=== PATIENT | male | born 1940 | race Caucasian/White ===

== ENCOUNTER 2016-09-06 11:15 | Emergency (ER) | payer OTHER ==
[~2016-09-06] VITALS: Ht 182.9 cm; Wt 78.2 kg
[~2016-09-06 11:15] MED LIST: RANI150T3 PO
[2016-09-06 11:23] VITALS: Ht 182.9 cm; Wt 78.2 kg
[2016-09-06 12:11] LABS: BASO % 0.9 %; BASO ABS # 0.05 K/uL (0-0.2); COMPLETE YES; EOS % 1.7 %; HEMATOCRIT 44.6 % (42-52); IG% 0.2 %; LYMPH % 26.5 %; LYMPH ABS # 1.52 K/uL (1.2-3.4); MEAN CELL VOLUME 91.2 fL (80-100); MEAN CORPUSCULAR HEMOGLOBIN 32.3 pg (25-34); MEAN CORPUSCULAR HGB CONC 35.4 g/dl (32-36); MEAN PLATELET VOLUME 10.3 fL (7.4-10.4); MONO % 10.1 %; NEUT % 60.6 %; PLATELET COUNT 157 K/uL (130-400); RED BLOOD COUNT 4.89 M/uL (4.7-6.1); WHITE BLOOD COUNT 5.73 K/uL (4.8-10.8)
[2016-09-06 12:21] LABS: PARTIAL THROMBOPLASTIN RATIO 1.1; PROTHROMBIN TIME (PATIENT) 10.9 SECONDS (9.0-12.0)
[2016-09-06 12:29] LABS: BUN/CREATININE RATIO 14.8 (10-20); CALCIUM 9.5 mg/dl (8.5-10.1); CREATININE 0.83 mg/dl (0.60-1.40); POTASSIUM 3.9 mmol/L (3.5-5.1)
[2016-09-06 12:42] LABS: MANUAL MICROSCOPIC REQUIRED? YES; REVIEW REQ? NO; SULFASALICYLIC ACID POS (NEG); URINE APPEARANCE CLOUDY (CLEAR); URINE COLOR RED
--- NOTE | 2016-09-06 12:44 | EMERGENCY ROOM VISIT NOTE ---
History First contact with patient: 11:47 Chief Complaint: HEMATURIA Stated Complaint: BLOOD/BLOOD CLOTS IN URINE Nursing Triage Summary: Triage note: pt reports "i am peeing straight blood since this morning." pt reports pain with urination. History of Present Illness The patient is a 76 year old male who presents to the Emergency Room with complaints of hematuria which started this morning. The patient states that he began noticing large amounts of blood and clots of blood in his urine this morning. He states that there is some burning in his lower abdomen after urination, but denies any dysuria, increased frequency or hesitancy. The patient denies any back pain. He reports a history of an enlarged prostate and kidney stones, but denies any other history of urinary problems. He states this does not feel like a kidney stone. He does not smoke. He denies any previous episodes of hematuria. Review of Systems A complete 10-point Review of Systems was discussed with the patient, with pertinent positives and negatives listed in the History of Present Illness. All remaining Review of Systems questions can be considered negative unless otherwise specified. Past Medical/Surgical History Medical Problems: (1) Enlarged prostate Surgical Problems: (1) History of appendectomy (2) Hx of inguinal hernia surgery Social History Smoking Status: Never Smoker Alcohol Use: none Drug Use: none Marital Status: Housing Status: lives with family Occupation Status: retired Current/Historical Medications Scheduled Ciprofloxacin Hcl (Cipro), 500 MG PO BID Allergies Coded Allergies: No Known Allergies (Unverified , 03/28/16) Physical Exam Vital Signs Date Time Temp Pulse Resp B/P Pulse Ox O2 Delivery O2 Flow Rate FiO2 09/06/16 11:23 36.8 74 18 125/80 94 Room Air Physical Exam VITALS: Vitals are noted on the nurse's note and reviewed by myself. Vital signs stable. GENERAL: This is a 76-year-old male, in no acute distress, nondiaphoretic, well- developed well-nourished. HEART: Regular rate and rhythm without murmurs gallops or rubs. LUNGS: Clear to auscultation bilaterally without wheezes, rales or rhonchi. ABDOMEN: Positive bowel sounds x 4. Soft, nontender to palpation. NEURO: Patient was alert and oriented to person place and time. Medical Decision & Procedures Laboratory Results 09/06/16 11:45 Red Blood Count 4.89, Mean Corpuscular Volume 91.2, Mean Corpuscular Hemoglobin 32.3, Mean Corpuscular Hemoglobin Concent 35.4, Mean Platelet Volume 10.3, Neutrophils (%) (Auto) 60.6, Lymphocytes (%) (Auto) 26.5, Monocytes (%) (Auto) 10.1, Eosinophils (%) (Auto) 1.7, Basophils (%) (Auto) 0.9, Neutrophils # (Auto ) 3.47, Lymphocytes # (Auto) 1.52, Monocytes # (Auto) 0.58, Eosinophils # (Auto ) 0.10, Basophils # (Auto) 0.05 09/06/16 11:45 Test 09/06/16 11:45 White Blood Count 5.73 K/uL (4.8-10.8) Red Blood Count 4.89 M/uL (4.7-6.1) Hemoglobin 15.8 g/dL (14.0-18.0) Hematocrit 44.6 % (42-52) Mean Corpuscular Volume 91.2 fL (80-100) Mean Corpuscular Hemoglobin 32.3 pg (25-34) Mean Corpuscular Hemoglobin Concent 35.4 g/dl (32-36) Platelet Count 157 K/uL (130-400) Mean Platelet Volume 10.3 fL (7.4-10.4) Neutrophils (%) (Auto) 60.6 % Lymphocytes (%) (Auto) 26.5 % Monocytes (%) (Auto) 10.1 % Eosinophils (%) (Auto) 1.7 % Basophils (%) (Auto) 0.9 % Neutrophils # (Auto) 3.47 K/uL (1.4-6.5) Lymphocytes # (Auto) 1.52 K/uL (1.2-3.4) Monocytes # (Auto) 0.58 K/uL (0.11-0.59) Eosinophils # (Auto) 0.10 K/uL (0-0.5) Basophils # (Auto) 0.05 K/uL (0-0.2) RDW Standard Deviation 45.7 fL (36.4-46.3) RDW Coefficient of Variation 13.7 % (11.5-14.5) Immature Granulocyte % (Auto) 0.2 % Immature Granulocyte # (Auto) 0.01 K/uL (0.00-0.02) Prothrombin Time 10.9 SECONDS (9.0-12.0) Prothromb Time International Ratio 1.0 (0.9-1.1) Activated Partial Thromboplast Time 28.2 SECONDS (21.0-31.0) Partial Thromboplastin Ratio 1.1 Urine Color RED Urine Appearance CLOUDY (CLEAR) Urine pH (4.5-7.5) Urine Specific Sherman (1.000-1.030) Urine Protein POS (NEG) Urine Glucose (UA) (NEG) Urine Ketones (NEG) Urine Occult Blood (NEG) Urine Nitrite (NEG) Urine Bilirubin (NEG) Urine Urobilinogen (NEG) Urine Leukocyte Esterase (NEG) Urine RBC >30 /hpf (0-4) Urine WBC >30 /hpf (0-5) Urine Epithelial Cells 0-5 /lpf (0-5) Urine Bacteria NEG (NEG) Anion Gap 8.0 mmol/L (3-11) Est Creatinine Clear Calc Drug Dose 80.5 ml/min Estimated GFR () 97.7 Estimated GFR (Non- 84.3 BUN/Creatinine Ratio 14.8 (10-20) Calcium Level 9.5 mg/dl (8.5-10.1) Medical Decision Differential diagnosis includes kidney stone, cystitis, malignancy, prostatitis , among others. The patient was evaluated as above. Labs were drawn and IV access was obtained. The patient is a 76-year-old male who presents today complaining of hematuria. The patient has no complaints of pain, but does state he has some burning in his abdomen after urinating and may be urinating more frequently than normal. Labs revealed no leukocytosis, anemia or concerning electrolyte abnormalities. Creatinine was elevated. Urinalysis showed greater than 30 red blood cells as well as greater than 30 white blood cells. No bacteria were noted. This may be early cystitis and the patient will be placed on antibiotics pending culture results. The patient does have a urologist and case management was able to call and make the patient a follow-up appointment with his established urologist. He was encouraged to return if he has any worsening of his condition or new/concerning symptoms. Based on the patient's presentation, lab results, and imaging studies, I feel the patient is stable for outpatient treatment. The patient was independently evaluated by Dr. Buckley, ED attending physician, who agreed with my assessment and treatment plan. Discharge instructions were reviewed with the patient. The patient verbalized understanding of my assessment and treatment plan and was discharged home in good condition. Impression Primary Impression: Hematuria Departure Information Dispostion Home / Self-Care Condition GOOD Prescriptions Ciprofloxacin Hcl (CIPRO) 500 Mg Tab 500 MG PO BID for 7 Days, #14 TAB Prov: Marifer Packer ., CINDY 09/06/16 Referrals Nano Sanchez M.D. (PCP) Patient Instructions My [facility] Additional Instructions You were prescribed ciprofloxacin to be taken twice daily as prescribed. This is an antibiotic. All antibiotics have the potential to cause diarrhea. Stop this medication and contact a medical provider if you were to develop any significant adverse side effects including: wheezing, shortness of breath, passing out, vomiting, or a diffuse rash. Always take antibiotics as directed and COMPLETE the ENTIRE course regardless of the improvement of your symptoms. Follow-up with [facility] urology. Drink plenty of fluids. Return to the emergency department with any fevers, worsening abdominal pain, back pain, lightheadedness, passing out or any other new/concerning symptoms.
[2016-09-06 12:58] LABS: URINE RBC >30 /hpf (0-4)
[2016-09-06 12:59] LABS: URINE BACTERIA NEG (NEG); URINE WBC >30 /hpf (0-5); ZZUR CULT IF INDIC CLEAN CATCH YES
--- NOTE | 2016-09-06 13:18 | EMERGENCY ROOM VISIT NOTE ---
ED Visit Note First contact with patient: 11:47 This Patient was discussed with the physician food service assistant, Marifer Packer PA-C. The pertinent historical and physical exam findings were confirmed. I agree with the studies ordered and with the interpretations of these studies. I agree with the disposition and care plan.
[2016-09-06] MEDS ORDERED: CIPR-255 PO (13:41)
[2016-09-06 15:00] VITALS: BP 125/80; PULSE 74; TEMP 36.8; O2SAT 94
== END 2016-09-06 15:01 | disposition home or self-care (01) ==
LOC: C.EDB 11:16 → C.EDC 15:01
DX: R31.9 Hematuria, unspecified (principal); N40.0 Benign prostatic hyperplasia without lower urinary tract symptoms

== ENCOUNTER → 2016-09-10 | Outpatient (CLI) | payer OTHER ==
[~2016-09-10] MED LIST changes: +CIPR-255 PO; -RANI150T3 PO
== END | disposition home or self-care (01) ==
LOC: C.PATHSPEC 10:51
PROVIDERS: ATTEND Urology
DX: R31.0 Gross hematuria (principal)

== ENCOUNTER → 2016-09-12 | Outpatient (CLI) | payer OTHER ==
[~2016-09-12] MED LIST changes: +OPTIRAY 320 IV PRN
--- NOTE | 2016-09-12 08:21 | DIAGNOSTIC IMAGING REPORT ---
ABDOMEN AND PELVIS CT WITH AND WITHOUT IV CONTRAST, UROGRAM PROTOCOL CT DOSE: 824.20 mGy.cm HISTORY: Gross hematuria TECHNIQUE: Multiaxial CT images of the abdomen and pelvis were performed both before and after the use of intravenous contrast to evaluate the urinary system. Maximal intensity projection images were performed at the workstation by the radiologist. COMPARISON STUDY: Abdomen and pelvis CT 03/23/2016. FINDINGS: There is a punctate stone within the right kidney. No left renal calculi. No ureteral or bladder calculi. No hydronephrosis. No suspicious filling defects seen within the bilateral renal collecting systems, ureters, or bladder. The distal right ureter is not opacified. The prostate gland is enlarged. A 1 cm anterior bladder diverticulum. Stable 1.3 cm tubular branching structure within the left lower lobe. 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 Mild elevation of the right hemidiaphragm, unchanged. 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 No change in the tubular metallic density adjacent to the left posterior iliac bone. The liver, gallbladder, spleen, adrenal glands, and pancreas are unremarkable. Small fat-containing left inguinal hernia. No retroperitoneal lymphadenopathy. Colonic diverticulosis. No bowel wall thickening or obstruction. IMPRESSION: 1. Right-sided nephrolithiasis. No ureteral stones. No hydronephrosis. 2. No suspicious filling defects seen within the opacified bilateral renal collecting systems, ureters, or bladder. 3. No change in the 1.3 cm tubular branching structure within the left lower lobe. 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 Follow-up pulmonary consultation is recommended. 4. Additional findings as described above. Electronically signed by: Jerrod Cortez M.D. 09/12/2016 8:20 AM Dictated Date/Time: 09/12/2016 8:08 AM
== END | disposition home or self-care (01) ==
LOC: C.CTS 07:25
PROVIDERS: ATTEND Urology
DX: N20.0 Calculus of kidney (principal); R91.8 Other nonspecific abnormal finding of lung field

== ENCOUNTER → 2017-07-18 | Outpatient (CLI) | payer OTHER ==
[~2017-07-18] MED LIST changes: -OPTIRAY 320 IV PRN
[2017-07-18 12:40] LABS: INR 2.2 (0.9-1.1)
== END | disposition home or self-care (01) ==
LOC: C.LABSPEC 14:44
PROVIDERS: ATTEND Student in an Organized Health Care Education/Training Program
DX: Z01.89 Encounter for other specified special examinations (principal)

== ENCOUNTER → 2017-07-25 | Outpatient (CLI) | payer OTHER ==
[2017-07-25 12:05] LABS: BASO % 0.5 %; BASO ABS # 0.03 K/uL (0-0.2); EOS % 1.7 %; EOS ABS # 0.11 K/uL (0-0.5); HEMATOCRIT 40.9 % (42-52); HEMOGLOBIN 13.5 g/dL (14.0-18.0); IG# 0.01 K/uL (0.00-0.02); LYMPH % 27.5 %; LYMPH ABS # 1.83 K/uL (1.2-3.4); MEAN CELL VOLUME 90.3 fL (80-100); MEAN CORPUSCULAR HEMOGLOBIN 29.8 pg (25-34); MEAN PLATELET VOLUME 9.3 fL (7.4-10.4); MONO % 7.2 %; MONO ABS # 0.48 K/uL (0.11-0.59); NEUT % 62.9 %; PLATELET COUNT 298 K/uL (130-400); RED CELL DISTRIBUTION WIDTH CV 15.1 % (11.5-14.5); RED CELL DISTRIBUTION WIDTH SD 49.5 fL (36.4-46.3); WHITE BLOOD COUNT 6.66 K/uL (4.8-10.8)
[2017-07-25 12:26] LABS: BLOOD UREA NITROGEN 8 mg/dl (7-18); CALCIUM 9.1 mg/dl (8.5-10.1); CARBON DIOXIDE 25 mmol/L (21-32); CREATININE 0.89 mg/dl (0.60-1.40); GLUCOSE 110 mg/dl (70-99); POTASSIUM 3.8 mmol/L (3.5-5.1); SODIUM 137 mmol/L (136-145)
[2017-07-25 12:30] LABS: INR 2.1 (0.9-1.1)
== END | disposition home or self-care (01) ==
LOC: C.LABSPEC 16:29
PROVIDERS: ATTEND Student in an Organized Health Care Education/Training Program
DX: Z51.81 Encounter for therapeutic drug level monitoring (principal); Z79.01 Long term (current) use of anticoagulants; D50.9 Iron deficiency anemia, unspecified

== ENCOUNTER 2018-11-28 05:59 | Inpatient (IN) ==
--- OUTSIDE RECORDS SUMMARY | 2018-11-28 06:02 | External Medical Summary | Continuity of Care Document ---
:1940 Author Name Kay Noriega, Provider Address Unavailable Unavailable , Care Team Providers Name Role Phone Unavailable Unavailable Unavailable Som De Los 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 Refills: 0 Dutasteride 0.5 MG Oral Capsule; TAKE 1 CAPSULE BY MOUTH ONCE DAILY - GENERIC AVODART Leann De Los Santos Start: 18-Oct-2016 Quantity: 90 Refills: 3 Procedures History of Tonsillectomy Status: Complet ed History of Appendectomy Status: Complete d History of Leg Repair Status: Completed Immunizations Immunizations not documented Social History - Smoking Status Never smoker Plan of Treatment Planned Observations Planned Goals not documented Results No Known Results Results not documented Encounters Appointment; Urology, Nursing Station 13-Aug-2017 10:50 Encounter Diagnosis: Problem not documented Appointment; Paramjit Carter II, DO 06-Jun-2017 13:10 Encounter Diagnosis: Problem not documented
[2018-11-28] MEDS ORDERED: MoRPHine SULFATE 4 MG/ML 1 ML CARP\\VIAL IV STA (06:11)
[2018-11-28] MEDS ORDERED: ONDANSETRON INJ 2 MG/ML 2 ML VIAL IV STA (06:11)
[2018-11-28] MEDS ORDERED: SODIUM CHLORIDE 0.9% 1000ML 1,000 ML IV SCH (06:15)
[2018-11-28 06:35] LABS: Basophils # (auto) 0.04 K/uL (0-0.2); Basophils % (auto) 0.6 %; Eosinophils # (auto) 0.18 K/uL (0-0.5); Eosinophils % (auto) 2.7 %; Hematocrit (blood only) 44.9 % (42-52); Hemoglobin 15.6 g/dL (14.0-18.0); Immature Granulocytes # (auto) 0.01 K/uL (0.00-0.02); Immature Granulocytes % (auto) 0.2 %; Lymphocytes # (auto) 0.94 K/uL (1.2-3.4); Lymphocytes % (auto) 14.3 %; Mean Corpuscular Hgb Conc 34.7 g/dL (32-36); Mean Corpuscular Volume 91.8 fL (80-100); Mean Platelet Volume 10.5 fL (7.4-10.4); Monocytes # (auto) 0.53 K/uL (0.11-0.59); Monocytes % (auto) 8.1 %; Neutrophils # (auto) 4.88 K/uL (1.4-6.5); Neutrophils % (auto) 74.1 %; Platelet Count 151 K/uL (130-400); RDW Coefficient of Variation 14.3 % (11.5-14.5); RDW Standard Deviation 48.3 fL (36.4-46.3); Red Blood Count 4.89 M/uL (4.7-6.1); White Blood Count 6.58 K/uL (4.8-10.8)
[2018-11-28 06:48] LABS: Albumin Level 3.5 gm/dl (3.4-5.0); BUN Creatinine Ratio 10.6 (10-20); Calcium 8.8 mg/dl (8.5-10.1); Creatinine Clr Calc Pharmacy 61.9 ml/min; Est GFR (African American) 85.1; Est GFR (Non-African American) 73.4; Potassium 3.8 mmol/L (3.5-5.1)
[2018-11-28 06:51] LABS: Albumin Globulin Ratio 1.1 (0.9-2); Bilirubin,Total 4.4 mg/dl (0.2-1); Globulin 3.3 gm/dl (2.5-4.0); Total Protein 6.8 gm/dl (6.4-8.2)
[2018-11-28 07:38] LABS: Appearance Urine Clear (Clear); Blood Urine Negative (Negative); Color Urine Dark Yellow; Glucose Urine UA Negative (Negative); Ketones Urine Negative (Negative); Leukocyte Esterase Urine Negative (Negative); Nitrite Urine Negative (Negative); Protein Urine Negative (Negative); Specific Gravity Urine 1.011 (1.000-1.030); Urobilinogen Urine Negative (Negative); pH Urine 8.5 (4.5-7.5)
[2018-11-28 07:39] LABS: Bilirubin Urine 1+ (Negative)
[2018-11-28 07:42] LABS: Ictotest Urine Positive (Negative)
--- NOTE | 2018-11-28 07:45 | Ultrasound Report ---
US abdomen limited CLINICAL HISTORY: 78 years-old Male presenting with Pt c/o RUQ abd pain. TECHNIQUE: Real-time grayscale and limited color Doppler ultrasound imaging of the abdomen limited to the right upper quadrant was performed. COMPARISON: 08/19/2018. FINDINGS: Pancreas: Largely obscured due to overlying bowel gas. Liver: Grossly normal echogenicity and echotexture. Limited evaluation of the parenchyma. Main portal vein patent with normal directional flow. Biliary: No intrahepatic biliary ductal dilatation. Common bile duct not visualized. Gallbladder: Not visualized. Right kidney: Normal in appearance without evidence of hydronephrosis. Ascites: None. Other: None. IMPRESSION: Significantly limited evaluation due to poor sonographic windows. Nonvisualization of the gallbladder . No gross abnormality of the liver or right kidney. No ascites. Electronically signed by: Jesus Wray M.D. 11/28/2018 7:44 AM
[2018-11-28] MEDS ORDERED: IOVERSOL 100ml IV PRN (09:28)
--- NOTE | 2018-11-28 10:09 | CT Scan Report ---
ABDOMEN AND PELVIS CT WITH IV CONTRAST CT DOSE: 705.34 mGy.cm HISTORY: Acute right upper quadrant abdominal pain Pt c/o RUQ abd pain TECHNIQUE: Multiaxial CT images of the abdomen and pelvis were performed following the use of intrave nous contrast. A dose lowering technique was utilized adhering to the principles of ALARA. COMPARISON STUDY: Right upper quadrant abdominal ultrasound of same day, CT abdomen and pelvis 019. FINDINGS: Unchanged mildly hyperdense 1.3 cm tubular structure of the posterior basal segment left lower lobe w ith minimal punctate calcifications suggestive of a probable impacted bronchus. Mild subsegmental bib asilar atelectasis/scarring. There is no pneumatosis or pneumoperitoneum identified. Imaged inferior cardiac chambers are unremarkable with coronary arterial calcifications noted. Unchanged right hemidiaphragmatic elevation. Hepatic flexure is seen interposed between the liver and right hemidiaphragm. There are multiple suggested cysts of the liver measuring up to 7 mm. Indetermi kate hypodense 7 mm lesion of the subserosal hepatic dome. No evidence of cirrhosis. Patency of the h epatic and portal veins. Mild intrahepatic biliary ductal prominence. Common bile duct is also mildly dilated measuring up to 10 mm. There is mild gallbladder wall thickening with mild pericholecystic e stacey. Additionally, there is mild thickening with enhancement about the common bile duct. No obstruct ing biliary stone or lesion identified. The pancreatic duct appears normal. No cholelithiasis or chol edocholithiasis identified. Spleen, pancreas and adrenal glands are unremarkable. Mild nonspecific bilateral perinephric stranding. Ureters are unremarkable. Prostamegaly. Small diver ticulum about the dome of the urinary bladder, likely from chronic bladder outlet obstruction. Small fat filled left inguinal hernia. Moderate mixed plaque formation of the abdominal aorta without aneur ysm. Mild nonspecific wall thickening about the distal esophagus. No bowel obstruction or bowel wall thickening identified. Colonic diverticulosis without acute diverticulitis. Terminal ileum is unremar kable. No ascites or mesenteric inflammation. Soft tissues are unremarkable. Orthopedic hardware note d at the bilateral hips. No fracture about the right acetabulum posteriorly. No acute fracture identi fied. IMPRESSION: 1. Mild gallbladder wall thickening with mild thickening and enhancement about the common bile duct a nd mild pericholecystic edema. Additionally, there is mild intrahepatic and extrahepatic biliary duct al prominence without obstructing stone or lesion identified. The pancreatic duct appears normal. Cor relate clinically to exclude acute cystitis/cholangitis. 2. No bowel obstruction or bowel wall thickening. 3. Colonic diverticulosis without acute diverticulitis. 4. Prostamegaly with chronic bladder outlet obstruction. 5. Additional findings as above. Electronically signed by: Nicolas Mchugh M.D. 11/28/2018 10:08 AM
[2018-11-28] MEDS ORDERED: cefOXitin 2,000 MG/60 ML BAG IV STA (10:35)
--- NOTE | 2018-11-28 11:17 | Surgery Consultation ---
Date of Consultation November 28, 2018 Assessment & Plan (1) Elevated LFTs: Possible early acute cholecystitis vs chronic, WBC normal. Bili 4.4, CBD 10 mm. Will need evaluation of heart block and Xarelto held as well as GI consult for possible CBD stone. Keep on IV abx, will follow for possible c holecystectomy, if his condition becomes more acute would consider perc cholecystostomy. History of Present Illness History of Present Illness 78 y/o male on Xarelto for DVT/PE with 3 days mid abdominal pain, lack of appetite. No fever, nausea or vomiting. Has had "alura" colored urine. Was seen in ED August 2108 for RUQ pain, U/S was negative but considered suboptimal. Had first degree heart block at that time and was to f/u with PCP, was noted to have heart block also now while in ED. Allergies Allergy/AdvReac Type Severity Reaction Status Date / Time No Known Allergies Allergy Unverified 11/28/18 06:36 Home Medications Home Medications Medication Instructions Recorded Confirmed Type finasteride 5 mg PO QAM 07/20/18 11/28/18 History tamsulosin 0.4 mg PO QAM 07/20/18 11/28/18 History rivaroxaban [Xarelto] 20 mg PO QAM 08/19/18 11/28/18 History Patient History Medical History Pituitary tumor Left femoral vein DVT (Resolved) Pulmonary embolism (Resolved) Enlarged prostate (Chronic) GERD (gastroesophageal reflux disease) (Chronic) Surgical History History of hernia repair History of appendectomy Social History Preferred Language: Armenian Communication Ability: Effective Beliefs That Will Affect Care: None Current Living Situation: Other Current Living Situation Comment: lives w gf Feels Safe at Home: Yes Smoking Status: Never smoker Hx Alcohol Use: No Hx Substance Use: No Review of Systems Constitutional: + anorexia; no fever and no chills Cardiovascular: + palpitations; no chest pain Gastrointestinal: + abdominal pain and + heartburn; no nausea and no vomiting Physical Exam Constitutional: well nourished; no acute distress Respiratory: normal respiratory effort; no respiratory distress Cardiovascular: Rate/Rhythm: regular rate Gastrointestinal (Abdomen): Inspection/Auscultation: abdomen normal to inspection; abdomen not distended Percussion/Palpation: abdomen soft; abdomen nontender and no guarding Skin: no rashes, warm and dry Results & Data Vital Signs (Past 12 Hours) Vital Signs Temp Pulse Pulse Resp BP BP Pulse Ox 11/28/18 10:31 69 16 112/72 92 11/28/18 10:30 69 18 96 11/28/18 10:00 63 16 136/68 94 11/28/18 09:57 72 23 109/69 95 11/28/18 09:37 78 29 H 97 11/28/18 09:00 63 22 112/65 94 11/28/18 08:46 66 17 95 11/28/18 08:45 66 14 105/72 93 11/28/18 08:44 62 16 94 11/28/18 07:01 105/63 11/28/18 07:00 65 17 92 11/28/18 06:32 63 19 94 11/28/18 06:27 72 67 20 118/70 118/70 91 11/28/18 06:24 92 11/28/18 06:05 36.4 C L 76 18 112/64 94
--- NOTE | 2018-11-28 11:18 | XRay Report ---
XR chest 1V portable CLINICAL HISTORY: Acute javad pain COMPARISON STUDY: 08/19/2018 FINDINGS: Mild emphysematous change. Chronic subsegmental atelectasis left base. No acute focal infil trate. IMPRESSION: Chronic change. No acute process. The above report was generated using voice recognition software. It may contain grammatical, syntax or spelling errors. Electronically signed by: Ronnie Oswald M.D. 11/28/2018 11:17 AM
[2018-11-28] MEDS ORDERED: PIPERACILL/TAZOBAC CONSULT ACTIVE PRN (11:56)
[2018-11-28 12:12] LABS: Creatine Kinase 50 U/L (39-308); Creatine Kinase MB 1.8 ng/ml (0.5-3.6); Troponin I < 0.015 ng/ml (0-0.045)
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
--- NOTE | 2018-11-28 12:43 | Cardiology Consultation ---
Date of Consultation November 28, 2018 Assessment & Plan (1) Heart block, AV: Patient is an 78-year-old male without prior history of distant cardiac disease presented with ongoing difficulties with chronic abdominal pain. While in the emergency room however he did demonstrate progression of Conduction system changes with baseline first-degree AV block progressing to Mobitz 1 second-degree AV block and transient third-degree AV block with pauses. Symptoms occurred in association with pain and morphine administration. Patient felt slight lightheadedness with complaint. Episode may represent vagally mediated event versus progression of underlying conduction system disease. Currently asymptomatic from a cardiac standpoint Recommendations: TSH will be checked. Lyme studies already ordered. Patient to be maintained on telemetry. Echocardiogram will be assessed. Xarelto on hold We will coordinate with GI and surgery regarding upcoming plans Discussed with patient potential needs for pacemaker now or in the future depending on telemetry results and above evaluation. (2) Pulmonary embolism: Event July 2018 unprovoked no prior history of extensive orthopedic injury 2017. Xarelto on hold initially (3) Abdominal pain: History of Present Illness Reason for Consultation: Transient second and third-degree AV block Requesting Physician: Patient is an 78-year-old male with complex recent history with hospitalization in July 2018 with DVT and pulmonary embolus. Patient presented that time with pleuritic chest pain and shortness of breath. He denies prior history of cardiac disease rheumatic fever scarlet fever or heart murmur. Notes no history of congestive heart failure. Notes no history of angina tachypalpitations, syncope or near syncope. Notes no unexplained fevers or infections. Has had several month history of intermittent abdominal pain right lower and right upper quadrant. As well as sense of urinary urgency and urinary frequency. Appetite's been only fair he is noted no melena hematochezia dysuria hematuria notes no rash or arthritic complaints. Notes no change in sleep pattern. Feels weight is been gradually trending downward with diminished appetite. Patient denies tick or insect exposure. Is relatively sedentary secondary to underlying orthopedic issues. Patient has a history of chronic dizziness which he attributes to pituitary tumor diagnosed nearly 10 years past Patient presented to the emergency room today with ongoing difficulties with right lower quadrant pain and right upper quadrant pain described as a burning discomfort. He was treated with IV morphine in the emergency room and while on telemetry was noted to have transient progression and underlying conduction system disease baseline telemetry first-degree AV block progressing to second- degree and third-degree AV block transiently. Patient was minimally symptomatic to asymptomatic during event on questioning. Allergies Allergy/AdvReac Type Severity Reaction Status Date / Time No Known Allergies Allergy Unverified 11/28/18 06:36 Home Medications Home Medications Medication Instructions Recorded Confirmed Type finasteride 5 mg PO QAM 07/20/18 11/28/18 History tamsulosin 0.4 mg PO QAM 07/20/18 11/28/18 History rivaroxaban [Xarelto] 20 mg PO QAM 08/19/18 11/28/18 History Patient History Medical History BPH with obstruction/lower urinary tract symptoms (Chronic) Pituitary tumor (Chronic) Pituitary macroadenoma - dx in 2008 Left femoral vein DVT (Resolved) Pulmonary embolism (Resolved) GERD (gastroesophageal reflux disease) (Chronic) Dyslipidemia (Chronic) Essential hypertension (Chronic) Hypercoagulable state (Chronic) Lung nodule (Chronic) Fracture of medial malleolus, right, closed (Resolved) Fracture of multiple ribs of right side (Resolved) Fracture of right acetabulum (Resolved) Fracture of right patella (Resolved) History of bacterial pneumonia (Resolved) History of skin cancer (Resolved) Traumatic closed fracture of distal ulna with minimal displacement (Resolved) Right Surgical History History of hernia repair (Chronic) History of appendectomy (Chronic) History of femur fracture (Resolved) repaired surgically at age 15 History of hip surgery (Resolved) ORIF fracture of right acetabulum in 2017 Hx of right knee surgery (Resolved) ORIF right patella fracture Social History Preferred Language: Ukrainian Communication Ability: Effective Beliefs That Will Affect Care: None Current Living Situation: Other Current Living Situation Comment: lives w gf Feels Safe at Home: Yes Smoking Status: Never smoker Hx Alcohol Use: No Hx Substance Use: No Review of Systems Review of Systems: As per HPI and otherwise negative Physical Exam Constitutional: WD/WN, vitals as above Eyes: PERRL, conjunctivae normal, anicteric sclerae ENMT: external ear and nose normal, oropharynx normal Neck: trachea midline, no thyromegaly Respiratory: Mildly diminished breath sounds otherwise clear Cardiovascular: Rate/Rhythm: regular rate and regular rhythm Heart Sounds: normal S1 and normal S2; no murmur and no cardiac rub Palpation: normal PMI Vessels: no JVD, no carotid bruit and no abdominal aortic bruit Extremities: no edema Gastrointestinal (Abdomen): Inspection/Auscultation: normal bowel sounds Percussion/Palpation: + abdomen tender (Mild right upper and lower quadrant); no hepatosplenomegaly Musculoskeletal: no cyanosis or clubbing, extremities motor strength 5/5 Skin: no rashes, warm and dry Results & Data Vital Signs (Past 12 Hours) Vital Signs Temp Pulse Pulse Resp BP BP Pulse Ox 11/28/18 12:31 58 L 18 114/66 93 11/28/18 12:30 60 16 11/28/18 12:01 65 27 H 130/75 93 11/28/18 12:00 63 14 94 11/28/18 11:32 65 17 94 11/28/18 11:31 65 19 114/68 94 11/28/18 11:30 68 17 135/74 92 11/28/18 11:01 66 6 L 135/74 96 11/28/18 11:00 69 18 95 11/28/18 10:32 66 17 92 11/28/18 10:31 69 16 112/72 92 11/28/18 10:30 69 18 96 11/28/18 10:00 63 16 136/68 94 11/28/18 09:57 72 23 109/69 95 11/28/18 09:37 78 29 H 97 11/28/18 09:00 63 22 112/65 94 11/28/18 08:46 66 17 95 11/28/18 08:45 66 14 105/72 93 11/28/18 08:44 62 16 94 11/28/18 07:01 105/63 11/28/18 07:00 65 17 92 11/28/18 06:32 63 19 94 11/28/18 06:27 72 67 20 118/70 118/70 91 11/28/18 06:24 92 11/28/18 06:05 36.4 C L 76 18 112/64 94 Laboratory Results Laboratory Results - last 24 hr 11/28/18 11/28/18 11/28/18 06:22 06:22 07:00 WBC 6.58 RBC 4.89 Hgb 15.6 Hct 44.9 MCV 91.8 MCH 31.9 MCHC 34.7 RDW Std Deviation 48.3 H RDW Coeff of Kal 14.3 Plt Count 151 MPV 10.5 H Immature Gran % (Auto) 0.2 Neut % (Auto) 74.1 Lymph % (Auto) 14.3 [place] % (Auto) 8.1 Eos % (Auto) 2.7 Baso % (Auto) 0.6 Immature Gran # (Auto) 0.01 Neut # (Auto) 4.88 Lymph # (Auto) 0.94 L [place] # (Auto) 0.53 Eos # (Auto) 0.18 Baso # (Auto) 0.04 Sodium 139 Potassium 3.8 Chloride 110 H Carbon Dioxide 25 Anion Gap 4.0 BUN 10 Creatinine 0.97 Est Cr Clr Drug Dosing 61.9 Est GFR ( Amer) 85.1 Est GFR (Non-Af Amer) 73.4 BUN/Creatinine Ratio 10.6 Glucose 107 H Calcium 8.8 Total Bilirubin 4.4 H AST 412 H ALT 379 H Alkaline Phosphatase 193 H Total Creatine Kinase CK-MB (CK-2) CK/CKMB % Calc Troponin I Total Protein 6.8 Albumin 3.5 Globulin 3.3 Albumin/Globulin Ratio 1.1 Lipase 293 TSH Urine Color Dark Yellow Urine Appearance Clear Urine pH 8.5 H Ur Specific [place] 1.011 Urine Protein Negative Urine Glucose (UA) Negative Urine Ketones Negative Urine Blood Negative Urine Nitrite Negative Urine Bilirubin 1+ H Urine Urobilinogen Negative Ur Leukocyte Esterase Negative Ethyl Alcohol mg/dL 11/28/18 11/28/18 11/28/18 11:39 11:39 12:41 WBC RBC Hgb Hct MCV MCH MCHC RDW Std Deviation RDW Coeff of Kal Plt Count MPV Immature Gran % (Auto) Neut % (Auto) Lymph % (Auto) [place] % (Auto) Eos % (Auto) Baso % (Auto) Immature Gran # (Auto) Neut # (Auto) Lymph # (Auto) [place] # (Auto) Eos # (Auto) Baso # (Auto) Sodium Potassium Chloride Carbon Dioxide Anion Gap BUN Creatinine Est Cr Clr Drug Dosing Est GFR ( Amer) Est GFR (Non-Af Amer) BUN/Creatinine Ratio Glucose Calcium Total Bilirubin AST ALT Alkaline Phosphatase Total Creatine Kinase 50 CK-MB (CK-2) 1.8 CK/CKMB % Calc 3.6 H Troponin I < 0.015 Total Protein Albumin Globulin Albumin/Globulin Ratio Lipase TSH Pending Urine Color Urine Appearance Urine pH Ur Specific [place] Urine Protein Urine Glucose (UA) Urine Ketones Urine Blood Urine Nitrite Urine Bilirubin Urine Urobilinogen Ur Leukocyte Esterase Ethyl Alcohol mg/dL < 3.0 ECG Additional Comments: EKG: Sinus bradycardia with first-degree AV block no acute ST segment changes or Q waves (1) Pulmonary embolism Chronicity: acute Pulmonary embolism type: unspecified
--- NOTE | 2018-11-28 12:46 | Hospitalist Progress Note ---
Date of Service November 28, 2018 Subjective Evaluation of Attending addendum: Patient seen and examined, This is a 78-year-old male with past medical history significant for recent PE/DVT, on chronic anticoagulation with Xarelto Came to ER with complaint of epigastric pain discomfort Lab shows significant elevated liver functions: Bilirubin 4.4/AST 412/ALT 379/alkaline phosphatase 193 CT abdomen pelvis shows mild gallbladder wall thickening with mild thickening and enhancement of the CBD and mild pericholecystic cholecystic edema additionally there is mild intrahepatic and extrahepatic biliary ductal prominence without obstructing stone or lesion identified: In the ER EKG shows second-degree AV block Patient reports of symptoms of dizzy spell, palpitation Appreciate input from cardiology, Patient will be admitted to PCU, consideration for pacemaker placement Surgery team evaluated patient in ER for acute cholecystitis Surgical procedure has to be postponed, until cardiac arrhythmia is identified and treated No evidence of sepsis, patient will be treated medically for acute cholecystitis empiric antibiotic with IV Zosyn Repeat labs in a.m. GI evaluation requested for evaluation of of extrahepatic biliary duct suggestive of possible CBD stone Please refer to further documentation by Loreto Guerra PA-C for discussion of other chronic issues Almita Jewell MD Results & Data Vital Signs (Past 12 Hours) Vital Signs Temp Pulse Pulse Resp BP BP Pulse Ox 11/28/18 12:31 58 L 18 114/66 93 11/28/18 12:30 60 16 11/28/18 12:01 65 27 H 130/75 93 11/28/18 12:00 63 14 94 11/28/18 11:32 65 17 94 11/28/18 11:31 65 19 114/68 94 11/28/18 11:30 68 17 135/74 92 11/28/18 11:01 66 6 L 135/74 96 11/28/18 11:00 69 18 95 11/28/18 10:32 66 17 92 11/28/18 10:31 69 16 112/72 92 11/28/18 10:30 69 18 96 11/28/18 10:00 63 16 136/68 94 11/28/18 09:57 72 23 109/69 95 11/28/18 09:37 78 29 H 97 11/28/18 09:00 63 22 112/65 94 11/28/18 08:46 66 17 95 11/28/18 08:45 66 14 105/72 93 11/28/18 08:44 62 16 94 11/28/18 07:01 105/63 11/28/18 07:00 65 17 92 11/28/18 06:32 63 19 94 11/28/18 06:27 72 67 20 118/70 118/70 91 11/28/18 06:24 92 11/28/18 06:05 36.4 C L 76 18 112/64 94
--- NOTE | 2018-11-28 13:10 | Gastrointestinal Consultation ---
Date of Consultation November 28, 2018 Assessment & Plan (1) Abdominal pain: 78 year old male w/ history of hypercoagulable state, prior DVT/PE on Xarelto who presents through the ED with persistent epigastric and RUQ pain x 48 hours. Imaging concerning for acute cholecystitis and biliary dilation up to 10 mm w/ elevated LFTs. He also reports a three month history of worsening lightheadedness and dizziness w/ bradycardia with sinus pause in the ED, cardiology consultation pending. He has remained afebrile without leukocytosis. He will need evaluation of his arrhythmia prior to endoscopic evaluation. Will defer ERCP unless urgently indicated by signs of cholangitis (fevers, leukocytos is, worsening LFTs, pain etc). Would ask that Xarelto be held if able for tentative plan for ERCP early next week. - Agree w/ cardiology consultation for evaluation of arrhythmia - GI would recommend to hold Xarelto if clinically able - IV fluids maintenance hydration - Anti-emetics PRN - Analgesia PRN - Agree w/ IV ABX (Zosyn started 11/28/18) - Daily LFTs - Recommend to obtain MRCP - Will hold on ERCP until optimized and cleared by a cardiology standpoint unless urgently indicated. GI will follow. Thank you for allowing us to participate in the care of this patient. Please call with any acute changes, questions or concerns. Please see addendum below with additional recommendation from my supervising physician. Present on Admission?: Yes (2) Heart block, AV: (3) Elevated LFTs: (4) Pulmonary embolism: Supervising Physician Co-Signing Physician Notes I have seen and examined the patient with SUSANNA Cedillo. 78 yo male with a history of prior 1st degree AV block, a pituitary tumor, prior imaging suggestive of gallbladder inflammation, admitted now with a few days of ruq pain. No associated fevers or chills or hypotension. Did have 2nd-3rd degree heartblock in the ER - though asymptomatic today. Reports taking xarelto - last dose thought to be late yesterday or questionably today. PE - well nourised elderly male in nad, PE- faint scleral icterus, CV- rrr no mrg, pulm - ctab, Abd - soft nt nd + bs TB 4, AST/ALT/Alk phos elevated, normal wbc count Imaging reviewed: CT a/p showing cbd of 10 mm, no over stone, and gallbladder inflammation ?cholecystitis with ? choledocholithiasis - no overt evidence of cholangitis given no fever, hypotension, normal wbc count. Would pursue MRCP if no contraindication for further evaluation of cbd Hold Xarelto IV Zosyn Trend cbc/lft's Potential ERCP if bradycardia resolves and cardiology risk assessment permits and if indicated. History of Present Illness Reason for Consultation: abnormal CT imaging, elevated LFTs Requesting Physician: Best Attending Physician: Best History of Present Illness 78 year old male with history of dyslipidemia, GERD, chronic constipation, BPH, pituitary macroadenoma, hypercoagulable state w/ PE, DVT on Xarelto who presents through the ED for RUQ and epigastric pain. Pt was seen and evaluated, chart reviewed. Notes he has had similar pain intermittently over the past 6 months. However, about 48 hours ago this pain became constant. Sharp and burning. Located epigastric w/ radiation to RUQ. No radiation to back. Mild nausea, no vomiting. No change in bowel/bladder function associated. No black/bloody stools/urine. Has had darker urine for a few weeks. Denies any fever, chills, CP, SOB. Has had intermittent lightheadedness and dizziness which has worsened over the past three months. ABD US November 2018: Pancreas: Largely obscured due to overlying bowel gas.Liver: Grossly normal echogenicity and echotexture. Limited evaluation of the parenchyma. Main portal vein patent with normal directional flow.Biliary: No i ntrahepatic biliary ductal dilatation. Common bile duct not visualized. Gallbladder: Not visualized. CT ABD/Pelvis November 2018: Mild gallbladder wall thickening with mild thickening and enhancement about the common bile duct and mild pericholecystic edema. Additionally, there is mild intrahepatic and extrahepatic biliary ductal prominence without obstructing stone or lesion identified. The pancreatic duct appears normal. Correlate clinically to exclude acute cystitis/cholangitis. No bowel obstruction or bowel wall thickening. Colonic diverticulosis without acute diverticulitis.Prostamegaly with chronic bladder outlet obstruction. ABD US August 2018: No acute sonographic abnormality is identified in the right upper quadrant.The gallbladder was suboptimally visualized. The common bile duct and pancreas were not visualized. CT ABD/Pelvis Jul 2018: Left lower lobe pulmonary emboli and a small left pleural effusion are again noted.No change in the 1.3 cm tubular structure within the left lower lobe. This favors an impacted bronchus. Nonocclusive DVT within the left femoral veins.Mild gallbladder wall thickening with subtle adjacent inflammatory change. Follow-up right upper quadrant ultrasound is recommended if the patient is developing right upper quadrant pain to exclude an acute cholecystitis.Additional findings as described above. PET 2017: Mild uptake in the left lung nodule. Differential includes low-grade neoplastic or inflammatory. Suggest follow-up CT chest in 3 months for re- evaluation. Intracranial uptake, not well evaluated on this study, MRI brain without and with contrast may be performed for further evaluation Allergies Allergy/AdvReac Type Severity Reaction Status Date / Time No Known Allergies Allergy Unverified 11/28/18 06:36 Home Medications Home Medications Medication Instructions Recorded Confirmed Type finasteride 5 mg PO QAM 07/20/18 11/28/18 History tamsulosin 0.4 mg PO QAM 07/20/18 11/28/18 History rivaroxaban [Xarelto] 20 mg PO QAM 08/19/18 11/28/18 History Patient History Medical History BPH with obstruction/lower urinary tract symptoms (Chronic) Pituitary tumor (Chronic) Pituitary macroadenoma - dx in 2008 Left femoral vein DVT (Resolved) Pulmonary embolism (Resolved) GERD (gastroesophageal reflux disease) (Chronic) Dyslipidemia (Chronic) Essential hypertension (Chronic) Hypercoagulable state (Chronic) Lung nodule (Chronic) Fracture of medial malleolus, right, closed (Resolved) Fracture of multiple ribs of right side (Resolved) Fracture of right acetabulum (Resolved) Fracture of right patella (Resolved) History of bacterial pneumonia (Resolved) History of skin cancer (Resolved) Traumatic closed fracture of distal ulna with minimal displacement (Resolved) Right Surgical History History of hernia repair (Chronic) History of appendectomy (Chronic) History of femur fracture (Resolved) repaired surgically at age 15 History of hip surgery (Resolved) ORIF fracture of right acetabulum in 2017 Hx of right knee surgery (Resolved) ORIF right patella fracture Social History Preferred Language: Japanese Communication Ability: Effective Bar Host Required: No Beliefs That Will Affect Care: None Current Living Situation: Family Current Living Situation Comment: lives w gf Other Information That Helps Us Care for You: No Feels Safe at Home: No Is there a partner from a previous relationship who is making you feel unsafe now?: No Would You Like to Speak to Someone About Your Situation: No Safety Concerns: Feels Safe At This Time Smoking Status: Never smoker Do You Dip or Chew Tobacco: No Second Hand Exposure: No Tobacco Cessation Education Requested by Patient: No Hx Alcohol Use: Yes Alcohol type: beer Hx Substance Use: No Review of Systems Constitutional: no fever, no chills and no fatigue Respiratory: no cough and no dyspnea Cardiovascular: no chest pain, no dyspnea and no dyspnea on exertion Gastrointestinal: + abdominal pain and + constipation; no belching, no bloating, no heartburn, no nausea, no vomiting, no coffee ground emesis, no dysphagia, no diarrhea/loose stools, no blood in stools and no melena Neurologic: + dizziness Physical Exam Constitutional: well developed and well nourished; no acute distress Eyes: mild scleral icterus Neck: trachea midline Respiratory: normal respiratory effort; no respiratory distress, no labored breathing and no retractions Auscultation: + diminished lung sounds Cardiovascular: Rate/Rhythm: regular rhythm and + bradycardic Heart Sounds: no click, no gallop and no murmur Gastrointestinal (Abdomen): Inspection/Auscultation: normal bowel sounds Percussion/Palpation: + abdomen tender (mild RUQ pain) and abdomen soft; no guarding and abdomen not rigid Skin: no rashes, warm and dry + jaundice (mild) Results & Data Vital Signs (Past 12 Hours) Vital Signs Temp Pulse Pulse Resp BP BP Pulse Ox 11/28/18 12:31 58 L 18 114/66 93 11/28/18 12:30 60 16 11/28/18 12:01 65 27 H 130/75 93 11/28/18 12:00 63 14 94 11/28/18 11:32 65 17 94 11/28/18 11:31 65 19 114/68 94 11/28/18 11:30 68 17 135/74 92 11/28/18 11:01 66 6 L 135/74 96 11/28/18 11:00 69 18 95 11/28/18 10:32 66 17 92 11/28/18 10:31 69 16 112/72 92 11/28/18 10:30 69 18 96 06/21/19 10:00 63 16 136/68 94 11/28/18 09:57 72 23 109/69 95 11/28/18 09:37 78 29 H 97 11/28/18 09:00 63 22 112/65 94 11/28/18 08:46 66 17 95 11/28/18 08:45 66 14 105/72 93 11/28/18 08:44 62 16 94 11/28/18 07:01 105/63 11/28/18 07:00 65 17 92 11/28/18 06:32 63 19 94 11/28/18 06:27 72 67 20 118/70 118/70 91 11/28/18 06:24 92 11/28/18 06:05 36.4 C L 76 18 112/64 94 Laboratory Results 11/28/18 11/28/18 11/28/18 Range/Units 12:41 11:39 11:39 WBC (4.8-10.8) K/uL RBC (4.7-6.1) M/uL Hgb (14.0-18.0) g/dL Hct (42-52) % MCV (80-100) fL MCH (25-34) pg MCHC (32-36) g/dL RDW Std Deviation (36.4-46.3) fL RDW Coeff of Kal (11.5-14.5) % Plt Count (130-400) K/uL MPV (7.4-10.4) fL Immature Gran % (Auto) % Neut % (Auto) % Lymph % (Auto) % [place] % (Auto) % Eos % (Auto) % Baso % (Auto) % Immature Gran # (Auto) (0.00-0.02) K/uL Neut # (Auto) (1.4-6.5) K/uL Lymph # (Auto) (1.2-3.4) K/uL [place] # (Auto) (0.11-0.59) K/uL Eos # (Auto) (0-0.5) K/uL Baso # (Auto) (0-0.2) K/uL Sodium (136-145) mmol/L Potassium (3.5-5.1) mmol/L Chloride (98-107) mmol/L Carbon Dioxide (21-32) mmol/L Anion Gap (3-11) BUN (7-18) mg/dl Creatinine (0.6-1.4) mg/dl Est Cr Clr Drug Dosing ml/min Est GFR ( Amer) Est GFR (Non-Af Amer) BUN/Creatinine Ratio (10-20) Glucose (70-99) mg/dl Calcium (8.5-10.1) mg/dl Total Bilirubin (0.2-1) mg/dl AST (15-37) U/L ALT (12-78) U/L Alkaline Phosphatase (45-117) U/L Total Creatine Kinase 50 (39-308) U/L CK-MB (CK-2) 1.8 (0.5-3.6) ng/ml CK/CKMB % Calc 3.6 H (0-3.0) Troponin I < 0.015 (0-0.045) ng/ml Total Protein (6.4-8.2) gm/dl Albumin (3.4-5.0) gm/dl Globulin (2.5-4.0) gm/dl Albumin/Globulin Ratio (0.9-2) Lipase (73-393) U/L TSH 2.940 (0.300-4.500) uIu/ml Urine Color Urine Appearance (Clear) Urine pH (4.5-7.5) Ur Specific [place] (1.000-1.030) Urine Protein (Negative) Urine Glucose (UA) (Negative) Urine Ketones (Negative) Urine Blood (Negative) Urine Nitrite (Negative) Urine Bilirubin (Negative) Urine Urobilinogen (Negative) Ur Leukocyte Esterase (Negative) Ethyl Alcohol mg/dL < 3.0 (0-3) mg/dl 11/28/18 11/28/18 11/28/18 Range/Units 07:00 06:22 06:22 WBC 6.58 (4.8-10.8) K/uL RBC 4.89 (4.7-6.1) M/uL Hgb 15.6 (14.0-18.0) g/dL Hct 44.9 (42-52) % MCV 91.8 (80-100) fL MCH 31.9 (25-34) pg MCHC 34.7 (32-36) g/dL RDW Std Deviation 48.3 H (36.4-46.3) fL RDW Coeff of Kal 14.3 (11.5-14.5) % Plt Count 151 (130-400) K/uL MPV 10.5 H (7.4-10.4) fL Immature Gran % (Auto) 0.2 % Neut % (Auto) 74.1 % Lymph % (Auto) 14.3 % [place] % (Auto) 8.1 % Eos % (Auto) 2.7 % Baso % (Auto) 0.6 % Immature Gran # (Auto) 0.01 (0.00-0.02) K/uL Neut # (Auto) 4.88 (1.4-6.5) K/uL Lymph # (Auto) 0.94 L (1.2-3.4) K/uL [place] # (Auto) 0.53 (0.11-0.59) K/uL Eos # (Auto) 0.18 (0-0.5) K/uL Baso # (Auto) 0.04 (0-0.2) K/uL Sodium 139 (136-145) mmol/L Potassium 3.8 (3.5-5.1) mmol/L Chloride 110 H (98-107) mmol/L Carbon Dioxide 25 (21-32) mmol/L Anion Gap 4.0 (3-11) BUN 10 (7-18) mg/dl Creatinine 0.97 (0.6-1.4) mg/dl Est Cr Clr Drug Dosing 61.9 ml/min Est GFR ( Amer) 85.1 Est GFR (Non-Af Amer) 73.4 BUN/Creatinine Ratio 10.6 (10-20) Glucose 107 H (70-99) mg/dl Calcium 8.8 (8.5-10.1) mg/dl Total Bilirubin 4.4 H (0.2-1) mg/dl AST 412 H (15-37) U/L ALT 379 H (12-78) U/L Alkaline Phosphatase 193 H (45-117) U/L Total Creatine Kinase (39-308) U/L CK-MB (CK-2) (0.5-3.6) ng/ml CK/CKMB % Calc (0-3.0) Troponin I (0-0.045) ng/ml Total Protein 6.8 (6.4-8.2) gm/dl Albumin 3.5 (3.4-5.0) gm/dl Globulin 3.3 (2.5-4.0) gm/dl Albumin/Globulin Ratio 1.1 (0.9-2) Lipase 293 (73-393) U/L TSH (0.300-4.500) uIu/ml Urine Color Dark Yellow Urine Appearance Clear (Clear) Urine pH 8.5 H (4.5-7.5) Ur Specific [place] 1.011 (1.000-1.030) Urine Protein Negative (Negative) Urine Glucose (UA) Negative (Negative) Urine Ketones Negative (Negative) Urine Blood Negative (Negative) Urine Nitrite Negative (Negative) Urine Bilirubin 1+ H (Negative) Urine Urobilinogen Negative (Negative) Ur Leukocyte Esterase Negative (Negative) Ethyl Alcohol mg/dL (0-3) mg/dl (1) Pulmonary embolism Chronicity: acute Pulmonary embolism type: unspecified
[2018-11-28] MEDS: PIPERACILLIN/TAZOBACTAM 3.375 GM in DEXTROSE 5% 100 ML IV SCH ×2 (14:18→20:01)
[2018-11-28] MEDS: D5W AND NSS 1,000 ML IV SCH (14:20)
[2018-11-28] MEDS ORDERED: PNEUMOCOCCAL POLYSACCHARIDES 25 MCG/0.5 ML VIAL/SYR IM ONE (14:30)
[2018-11-28] MEDS ORDERED: PNEUMOCOCCAL ADMINISTRATION CHARGE ONE (14:30)
[2018-11-28 14:34] LABS: INR 1.2 (0.9-1.1); Partial Thromboplastin Ratio 1.2; Partial Thromboplastin Time 32.5 Seconds (21.0-31.0); Prothrombin Time 12.1 Seconds (9.0-12.0)
--- NOTE | 2018-11-28 15:57 | Emergency Department Note ---
Entered by Judi Hunter acting as a scribe for History of Present Illness General Chief complaint: Abdominal Pain Stated complaint: abd pain Time Seen by Provider: 11/28/18 06:27 Source: patient Mode of arrival: ambulatory Limitations: no limitations History of Present Illness Provider complaint: abd pain Onset (ago): day(s) 3 Location: abdomen Pain Consistency: + other (persistent) Maximum Pain Intensity: 10 Current Pain Intensity: 10 Quality: + burning Associated symptoms: + denies other symptoms (diarrhea); no nausea/vomiting The patient is an 78 year old male who presents to the Emergency Room with complaints of persistent abdominal pain that began 3 days ago. The patient describes the pain as a burning sensation and reports that it is mostly in the right upper quadrant of his abdomen. He denies any nausea, vomiting or diarrhea. He states that he has had an appendectomy in the past as well as a hernia repair. He notes that he is currently on Xarelto. The patient rated his pain a 10/10 at triage. Home Medications Home Medications Medication Instructions Recorded Confirmed Type finasteride 5 mg PO QAM 07/20/18 11/28/18 History tamsulosin 0.4 mg PO QAM 07/20/18 11/28/18 History rivaroxaban [Xarelto] 20 mg PO QAM 08/19/18 11/28/18 History Allergies Allergy/AdvReac Type Severity Reaction Status Date / Time No Known Allergies Allergy Unverified 11/28/18 06:36 Past Med/Surg History Medical History BPH with obstruction/lower urinary tract symptoms (Chronic) Pituitary tumor (Chronic) Pituitary macroadenoma - dx in 2008 Left femoral vein DVT (Resolved) Pulmonary embolism (Resolved) GERD (gastroesophageal reflux disease) (Chronic) Dyslipidemia (Chronic) Essential hypertension (Chronic) Hypercoagulable state (Chronic) Lung nodule (Chronic) Fracture of medial malleolus, right, closed (Resolved) Fracture of multiple ribs of right side (Resolved) Fracture of right acetabulum (Resolved) Fracture of right patella (Resolved) History of bacterial pneumonia (Resolved) History of skin cancer (Resolved) Traumatic closed fracture of distal ulna with minimal displacement (Resolved) Right Surgical History History of hernia repair (Chronic) History of appendectomy (Chronic) History of femur fracture (Resolved) repaired surgically at age 15 History of hip surgery (Resolved) ORIF fracture of right acetabulum in 2017 Hx of right knee surgery (Resolved) ORIF right patella fracture Social History Preferred Language: Occitan Communication Ability: Effective Production Roustabout Required: No Beliefs That Will Affect Care: None Current Living Situation: Family Current Living Situation Comment: lives w gf Other Information That Helps Us Care for You: No Feels Safe at Home: No Is there a partner from a previous relationship who is making you feel unsafe now?: No Would You Like to Speak to Someone About Your Si tuation: No Safety Concerns: Feels Safe At This Time Smoking Status: Never smoker Do You Dip or Chew Tobacco: No Second Hand Exposure: No Tobacco Cessation Education Requested by Patient: No Hx Alcohol Use: Yes Alcohol type: beer Hx Substance Use: No Review of Systems See HPI for pertinent positives & negatives. and A total of 10 systems reviewed and were otherwise negative Physical Exam Vital Signs Vital Signs - 24 hr 11/28/18 06:05 11/28/18 06:24 11/28/18 06:27 Temperature 36.4 C L Temperature Source Oral Sepsis Recent Fever Within 48 Hours No Sepsis Action Taken by Nursing No Action Required Pulse Rate 76 72 Pulse Rate [Finger] 67 Pulse Rate from SpO2 Sensor 66 Respiratory Rate 18 20 Respiratory Effort / Characteristics Non-Labored Spontaneous Respiratory Depth Normal Respiratory Pattern Regular Blood Pressure 112/64 118/70 Blood Pressure [Left Arm] 118/70 Blood Pressure Mean 80 86 Blood Pressure Mean [Left Arm] 86 Blood Pressure Position Sitting Pulse Oximetry 94 92 91 Oxygen Delivery Method Room Air Room Air Room Air 11/28/18 06:32 11/28/18 07:00 11/28/18 07:01 Temperature Temperature Source Sepsis Recent Fever Within 48 Hours Sepsis Action Taken by Nursing Pulse Rate 63 65 Pulse Rate [Finger] Pulse Rate from SpO2 Sensor 64 64 Respiratory Rate 19 17 Respiratory Effort / Characteristics Respiratory Depth Respiratory Pattern Blood Pressure 105/63 Blood Pressure [Left Arm] Blood Pressure Mean 77 Blood Pressure Mean [Left Arm] Blood Pressure Position Pulse Oximetry 94 92 Oxygen Delivery Method 11/28/18 08:44 11/28/18 08:45 11/28/18 08:46 Temperature Temperature Source Sepsis Recent Fever Within 48 Hours Sepsis Action Taken by Nursing Pulse Rate 62 66 66 Pulse Rate [Finger] Pulse Rate from SpO2 Sensor 63 64 66 Respiratory Rate 16 14 17 Respiratory Effort / Characteristics Respiratory Depth Respiratory Pattern Blood Pressure 105/72 Blood Pressure [Left Arm] Blood Pressure Mean 83 Blood Pressure Mean [Left Arm] Blood Pressure Position Pulse Oximetry 94 93 95 Oxygen Delivery Method 11/28/18 09:00 11/28/18 09:37 11/28/18 09:57 Temperature Temperature Source Sepsis Recent Fever Within 48 Hours Sepsis Action Taken by Nursing Pulse Rate 63 78 72 Pulse Rate [Finger] Pulse Rate from SpO2 Sensor 64 78 73 Respiratory Rate 22 29 H 23 Respiratory Effort / Characteristics Respiratory Depth Respiratory Pattern Blood Pressure 112/65 109/69 Blood Pressure [Left Arm] Blood Pressure Mean 80 82 Blood Pressure Mean [Left Arm] Blood Pressure Position Pulse Oximetry 94 97 95 Oxygen Delivery Method 11/28/18 10:00 11/28/18 10:30 11/28/18 10:31 Temperature Temperature Source Sepsis Recent Fever Within 48 Hours Sepsis Action Taken by Nursing Pulse Rate 63 69 69 Pulse Rate [Finger] Pulse Rate from SpO2 Sensor 64 67 67 Respiratory Rate 16 18 16 Respiratory Effort / Characteristics Respiratory Depth Respiratory Pattern Blood Pressure 136/68 112/72 Blood Pressure [Left Arm] Blood Pressure Mean 90 85 Blood Pressure Mean [Left Arm] Blood Pressure Position Pulse Oximetry 94 96 92 Oxygen Delivery Method 11/28/18 10:32 11/28/18 11:00 11/28/18 11:01 Temperature Temperature Source Sepsis Recent Fever Within 48 Hours Sepsis Action Taken by Nursing Pulse Rate 66 69 66 Pulse Rate [Finger] Pulse Rate from SpO2 Sensor 66 70 68 Respiratory Rate 17 18 6 L Respiratory Effort / Characteristics Respiratory Depth Respiratory Pattern Blood Pressure 135/74 Blood Pressure [Left Arm] Blood Pressure Mean 94 Blood Pressure Mean [Left Arm] Blood Pressure Position Pulse Oximetry 92 95 96 Oxygen Delivery Method 11/28/18 11:30 11/28/18 11:31 11/28/18 11:32 Temperature Temperature Source Sepsis Recent Fever Within 48 Hours Sepsis Action Taken by Nursing Pulse Rate 68 65 65 Pulse Rate [Finger] Pulse Rate from SpO2 Sensor 66 66 65 Respiratory Rate 17 19 17 Respiratory Effort / Characteristics Respiratory Depth Respiratory Pattern Blood Pressure 135/74 114/68 Blood Pressure [Left Arm] Blood Pressure Mean 94 83 Blood Pressure Mean [Left Arm] Blood Pressure Position Pulse Oximetry 92 94 94 Oxygen Delivery Method 11/28/18 12:00 11/28/18 12:01 11/28/18 12:30 Temperature Temperature Source Sepsis Recent Fever Within 48 Hours Sepsis Action Taken by Nursing Pulse Rate 63 65 60 Pulse Rate [Finger] Pulse Rate from SpO2 Sensor 64 64 Respiratory Rate 14 27 H 16 Respiratory Effort / Characteristics Respiratory Depth Respiratory Pattern Blood Pressure 130/75 Blood Pressure [Left Arm] Blood Pressure Mean 93 Blood Pressure Mean [Left Arm] Blood Pressure Position Pulse Oximetry 94 93 Oxygen Delivery Method 11/28/18 12:31 11/28/18 12:55 Temperature Temperature Source Sepsis Recent Fever Within 48 Hours Sepsis Action Taken by Nursing Pulse Rate 58 L Pulse Rate [Finger] Pulse Rate from SpO2 Sensor 58 L Respiratory Rate 18 Respiratory Effort / Characteristics Respiratory Depth Respiratory Pattern Blood Pressure 114/66 Blood Pressure [Left Arm] Blood Pressure Mean 82 Blood Pressure Mean [Left Arm] Blood Pressure Position Pulse Oximetry 93 Oxygen Delivery Method Room Air GENERAL: Awake, alert, well-appearing, in no acute distress HENT: Normocephalic, atraumatic. Oropharynx unremarkable. EYES: Normal conjunctiva. Sclera non-icteric. NECK: Supple. No nuchal rigidity. FROM. No JVD. RESPIRATORY: Clear to auscultation. CARDIAC: Regular rate, normal rhythm. Extremities warm and well perfused. Pulses equal. ABDOMEN: Soft, non-distended. RUQ tenderness to palpation. No rebound or guarding. No masses. RECTAL: Deferred. MUSCULOSKELETAL: Chest examination reveals no tenderness. The back is symmetr ical on inspection without obvious abnormality. There is no CVA tenderness to palpation. No joint edema. LOWER EXTREMITIES: Calves are equal size bilaterally and non-tender. No edema. No discoloration. NEURO: Normal sensorium. No sensory or motor deficits noted. SKIN: No rash or jaundice noted. Course 0631: Past medical records reviewed. The patient was evaluated in room B7. A complete history and physical examination was performed. 1038: I updated the patient on his results. He reports that he has been having intermittent palpitations for the last few years. We will be obtaining an EKG. 1040: I discussed the patient's case with Rodo Watson PA-C [facility] General Surgery. He recommends admission of the patient. 1049: I reviewed the patient's case with Opal Macdonald PA-C. She, in conjunction with Dr. Jewell, will evaluate the patient for further management. Administered Medications Sodium Chloride (Nss 1000ml) 1,000 mls @ 100 mls/hr IV .Q10H [facility]A Stop: 11/28/18 16:14 Last Infusion: 11/28/18 12:47 Dose: 0 mls/hr Documented by: [id number] Admin: 11/28/18 06:28 Dose: 100 mls/hr Documented by: [id number] Piperacillin Sod/Tazobactam (Sod 3.375 gm/ Dextrose) 115 mls @ 28.75 mls/hr IV Q8H [facility]; Protocol Stop: 12/08/18 11:59 Last Admin: 11/28/18 14:18 Dose: 28.8 mls/hr Documented by: [id number] Dextrose/Sodium Chloride (D5w And Nss) 1,000 mls @ 80 mls/hr IV .[id number] [facility] Stop: 12/28/18 12:44 Last Admin: 11/28/18 14:20 Dose: 80 mls/hr Documented by: [id number] Ioversol (Optiray 320 100ml) 93 ml IV ONCE PRN PRN Reason: Interaction Checking Stop: 12/02/18 09:27 Last Admin: 11/28/18 09:29 Dose: 93 ml Documented by: [id number] Discontinued Medications Cefoxitin Sodium (Mefoxin) 2,000 mg in 60 mls @ 100 mls/hr IV NOW STA Stop: 11/28/18 11:10 Last Infusion: 11/28/18 11:53 Dose: 0 mls/hr Documented by: [id number] Admin: 11/28/18 11:07 Dose: 100 mls/hr Documented by: [id number] Morphine Sulfate (Morphine Sulfate) 4 mg IV NOW STA Stop: 11/28/18 06:12 Last Admin: 11/28/18 06:28 Dose: 4 mg Documented by: [id number] Ondansetron HCl (Zofran) 4 mg IV NOW STA Stop: 11/28/18 06:12 Last Admin: 11/28/18 06:28 Dose: 4 mg Documented by: [id number] Medical Decision Making Differential Diagnosis Differential diagnosis includes: gastritis, peptic ulcer disease, GERD, gallbladder disease, pancreatitis, small bowel obstruction, acute coronary syndrome, pericarditis, ischemic bowel, irritable bowel disease, irritable bowel syndrome, appendicitis, diverticulitis, malignancy, hernia, urinary tract infection, torsion, perforation, trauma, cardaic disease, and infection amongst others. Medical Records Attestation: I reviewed the patient's medical records. Home Medications Current Medication List: was personally reviewed by me Laboratory Data Attestation: I reviewed the patient's lab results. Result diagrams: 11/28/18 06:22 11/28/18 06:22 Lab Results 11/28/18 11/28/18 11/28/18 Range/Units 06: 06: 07:00 WBC 6.58 (4.8-10.8) K/uL RBC 4.89 (4.7-6.1) M/uL Hgb 15.6 (14.0-18.0) g/dL Hct 44.9 (42-52) % MCV 91.8 (80-100) fL MCH 31.9 (25-34) pg MCHC 34.7 (32-36) g/dL RDW Std Deviation 48.3 H (36.4-46.3) fL RDW Coeff of Kal 14.3 (11.5-14.5) % Plt Count 151 (130-400) K/uL MPV 10.5 H (7.4-10.4) fL Immature Gran % (Auto) 0.2 % Neut % (Auto) 74.1 % Lymph % (Auto) 14.3 % [place] % (Auto) 8.1 % Eos % (Auto) 2.7 % Baso % (Auto) 0.6 % Immature Gran # (Auto) 0.01 (0.00-0.02) K/uL Neut # (Auto) 4.88 (1.4-6.5) K/uL Lymph # (Auto) 0.94 L (1.2-3.4) K/uL [place] # (Auto) 0.53 (0.11-0.59) K/uL Eos # (Auto) 0.18 (0-0.5) K/uL Baso # (Auto) 0.04 (0-0.2) K/uL Sodium 139 (136-145) mmol/L Potassium 3.8 (3.5-5.1) mmol/L Chloride 110 H (98-107) mmol/L Carbon Dioxide 25 (21-32) mmol/L Anion Gap 4.0 (3-11) BUN 10 (7-18) mg/dl Creatinine 0.97 (0.6-1.4) mg/dl Est Cr Clr Drug Dosing 61.9 ml/min Est GFR ( Amer) 85.1 Est GFR (Non-Af Amer) 73.4 BUN/Creatinine Ratio 10.6 (10-20) Glucose 107 H (70-99) mg/dl Calcium 8.8 (8.5-10.1) mg/dl Total Bilirubin 4.4 H (0.2-1) mg/dl AST 412 H (15-37) U/L ALT 379 H (12-78) U/L Alkaline Phosphatase 193 H (45-117) U/L Total Creatine Kinase (39-308) U/L CK-MB (CK-2) (0.5-3.6) ng/ml CK/CKMB % Calc (0-3.0) Troponin I (0-0.045) ng/ml Total Protein 6.8 (6.4-8.2) gm/dl Albumin 3.5 (3.4-5.0) gm/dl Globulin 3.3 (2.5-4.0) gm/dl Albumin/Globulin Ratio 1.1 (0.9-2) Lipase 293 (73-393) U/L TSH (0.300-4.500) uIu/ml Urine Color Dark Yellow Urine Appearance Clear (Clear) Urine pH 8.5 H (4.5-7.5) Ur Specific [place] 1.011 (1.000-1.030) Urine Protein Negative (Negative) Urine Glucose (UA) Negative (Negative) Urine Ketones Negative (Negative) Urine Blood Negative (Negative) Urine Nitrite Negative (Negative) Urine Bilirubin 1+ H (Negative) Urine Urobilinogen Negative (Negative) Ur Leukocyte Esterase Negative (Negative) Ethyl Alcohol mg/dL (0-3) mg/dl 11/28/18 11/28/18 11/28/18 Range/Units 11:39 11:39 12:41 WBC (4.8-10.8) K/uL RBC (4.7-6.1) M/uL Hgb (14.0-18.0) g/dL Hct (42-52) % MCV (80-100) fL MCH (25-34) pg MCHC (32-36) g/dL RDW Std Deviation (36.4-46.3) fL RDW Coeff of Kal (11.5-14.5) % Plt Count (130-400) K/uL MPV (7.4-10.4) fL Immature Gran % (Auto) % Neut % (Auto) % Lymph % (Auto) % [place] % (Auto) % Eos % (Auto) % Baso % (Auto) % Immature Gran # (Auto) (0.00-0.02) K/uL Neut # (Auto) (1.4-6.5) K/uL Lymph # (Auto) (1.2-3.4) K/uL [place] # (Auto) (0.11-0.59) K/uL Eos # (Auto) (0-0.5) K/uL Baso # (Auto) (0-0.2) K/uL Sodium (136-145) mmol/L Potassium (3.5-5.1) mmol/L Chloride (98-107) mmol/L Carbon Dioxide (21-32) mmol/L Anion Gap (3-11) BUN (7-18) mg/dl Creatinine (0.6-1.4) mg/dl Est Cr Clr Drug Dosing ml/min Est GFR ( Amer) Est GFR (Non-Af Amer) BUN/Creatinine Ratio (10-20) Glucose (70-99) mg/dl Calcium (8.5-10.1) mg/dl Total Bilirubin (0.2-1) mg/dl AST (15-37) U/L ALT (12-78) U/L Alkaline Phosphatase (45-117) U/L Total Creatine Kinase 50 (39-308) U/L CK-MB (CK-2) 1.8 (0.5-3.6) ng/ml CK/CKMB % Calc 3.6 H (0-3.0) Troponin I < 0.015 (0-0.045) ng/ml Total Protein (6.4-8.2) gm/dl Albumin (3.4-5.0) gm/dl Globulin (2.5-4.0) gm/dl Albumin/Globulin Ratio (0.9-2) Lipase (73-393) U/L TSH 2.940 (0.300-4.500) uIu/ml Urine Color Urine Appearance (Clear) Urine pH (4.5-7.5) Ur Specific [place] (1.000-1.030) Urine Protein (Negative) Urine Glucose (UA) (Negative) Urine Ketones (Negative) Urine Blood (Negative) Urine Nitrite (Negative) Urine Bilirubin (Negative) Urine Urobilinogen (Negative) Ur Leukocyte Esterase (Negative) Ethyl Alcohol mg/dL < 3.0 (0-3) mg/dl Imaging Data Radiologist's Impression: Radiology results as stated below per my review and the radiologist's interpretation: US abdomen limited CLINICAL HISTORY: 78 years-old Male presenting with Pt c/o RUQ abd pain. TECHNIQUE: Real-time grayscale and limited color Doppler ultrasound imaging of the abdomen limited to the right upper quadrant was performed. COMPARISON: 08/19/2018. FINDINGS: Pancreas: Largely obscured due to overlying bowel gas. Liver: Grossly normal echogenicity and echotexture. Limited evaluation of the parenchyma. Main portal vein patent with normal directional flow. Biliary: No intrahepatic biliary ductal dilatation. Common bile duct not visualized. Gallbladder: Not visualized. Right kidney: Normal in appearance without evidence of hydronephrosis. Ascites: None. Other: None. IMPRESSION: Significantly limited evaluation due to poor sonographic windows. Nonvisualization of the gallbladder. No gross abnormality of the liver or right kidney. No ascites. Electronically signed by: Jesus Wray M.D. 11/28/2018 7:44 AM ABDOMEN AND PELVIS CT WITH IV CONTRAST CT DOSE: 705.34 mGy.cm HISTORY: Acute right upper quadrant abdominal pain Pt c/o RUQ abd pain TECHNIQUE: Multiaxial CT images of the abdomen and pelvis were performed following the use of intravenous contrast. A dose lowering technique was utilized adhering to the principles of ALARA. COMPARISON STUDY: Right upper quadrant abdominal ultrasound of same day, CT abdomen and pelvis 07/20/2018. FINDINGS: Unchanged mildly hyperdense 1.3 cm tubular structure of the posterior basal segment left lower lobe with minimal punctate calcifications suggestive of a probable impacted bronchus. Mild subsegmental bibasilar atelectasis/scarring. There is no pneumatosis or pneumoperitoneum identified. Imaged inferior cardiac chambers are unremarkable with coronary arterial calcifications noted. Unchanged right hemidiaphragmatic elevation. Hepatic flexure is seen interposed between the liver and right hemidiaphragm. There are multiple suggested cysts of the liver measuring up to 7 mm. Indeterminate hypodense 7 mm lesion of the subserosal hepatic dome. No evidence of cirrhosis. Patency of the hepatic and portal veins. Mild intrahepatic biliary ductal prominence. Common bile duct is also mildly dilated measuring up to 10 mm. There is mild gallbladder wall thickening with mild pericholecystic edema. Additionally, there is mild thickening with enhancement about the common bile duct. No obstructing biliary stone or lesion identified. The pancreatic duct appears normal. No cholelithiasis or choledocholithiasis identified. Spleen, pancreas and adrenal glands are unremarkable. Mild nonspecific bilateral perinephric stranding. Ureters are unremarkable. Prostamegaly. Small diverticulum about the dome of the urinary bladder, likely from chronic bladder outlet obstruction. Small fat filled left inguinal hernia. Moderate mixed plaque formation of the abdominal aorta without aneurysm. Mild nonspecific wall thickening about the distal esophagus. No bowel obstruction or bowel wall thickening identified. Colonic diverticulosis without acute diverticulitis. Terminal ileum is unremarkable. No ascites or mesenteric inflammation. Soft tissues are unremarkable. Orthopedic hardware noted at the bilateral hips. No fracture about the right acetabulum posteriorly. No acute fracture identified. IMPRESSION: 1. Mild gallbladder wall thickening with mild thickening and enhancement about the common bile duct and mild pericholecystic edema. Additionally, there is mild intrahepatic and extrahepatic biliary ductal prominence without obstructing stone or lesion identified. The pancreatic duct appears normal. Correlate clinically to exclude acute cystitis/cholangitis. 2. No bowel obstruction or bowel wall thickening. 3. Colonic diverticulosis without acute diverticulitis. 4. Prostamegaly with chronic bladder outlet obstruction. 5. Additional findings as above. Electronically signed by: Nicolas Mchugh M.D. 11/28/2018 10:08 AM ECG Data Attestation: I personally reviewed and interpreted this ECG as follows: Indication: palpitations Rate (beats per minute): 64 Rhythm: sinus rhythm Findings: + 1st degree AV block; no ST depression and no ST elevation Blood Pressure Blood Pressure Findings: Normal blood pressure Blood Pressure Disposition: did not require urgent referral MDM Narrative This is an 78-year-old male who presents emergency department complaining of epigastric pain. Using shared medical decision-making with patient and family decision was made to send the patient for a ultrasound. Patient does have an elevation in his liver enzymes as well as his total bili. He is CAT scan is concerning for acute cholecystitis. Unfortunately we could not get a good picture of the patient's gallbladder therefore he was sent for CAT scan the abdomen pelvis. Patient was found to have elevations in his transaminases. His I did discuss the case with the surgeon who asked that the patient be admitted to the medicine service. Patient was started on Mefoxin. While in the em ergency department the patient did go into complete heart block and then quickly reverted back to a normal sinus rhythm. Impression & Plan Epigastric pain, Acute cholecystitis, Heart block, AV Critical Care Time I have personally spent greater than 30 minutes of critical care time in the direct management of this patient. This includes bedside care, interpretation of diagnostic studies, and testing, discussion with consultants, patient, and family members, and other required patient management activities. This 30 minutes is in excess of all separately billable procedures. Discharge Plan Visit Data *Final* Discharge Date/Time: 11/28/18 12:55 Chief Complaint: Abdominal Pain Stated Complaint: abd pain ED Provider: Titus Galvan Discharge Problem: Epigastric pain, Acute cholecystitis, Heart block, AV Patient Disposition: Admitted As Inpatient Discharge Instructions Interventions: ED Discharge Assessment Last Done: 11/28/18 12:55 The scribe's documentation has been prepared under my direction and personally reviewed by me in its entirety. I confirm that the note above accurately reflects all work, treatment, procedures, and medical decision making performed by me.
--- NOTE | 2018-11-28 16:45 | Cardiology Progress Note ---
Date of Service November 28, 2018 Subjective Patient reassessed after admission. Has had 2 additional episodes of high degree AV block asymptomatically while awake and without focal complaint. Findings reflect underlying conduction system disease. External pacemaker patches will be placed No indications for temporary pacemaker at this time Expect will require permanent pacemaker timing dependent on plans for surgical and GI intervention. Patient currently anticoagulated with Xarelto to be held today Will follow in hospital Results & Data Vital Signs (Past 12 Hours) Vital Signs Temp Pulse Pulse Resp BP BP Pulse Ox 11/28/18 16:00 61 11/28/18 15:45 36.6 C 64 20 138/72 94 11/28/18 13:33 36.6 C 64 18 143/68 H 94 11/28/18 13:18 36.6 C 64 20 143/68 H 94 11/28/18 12:31 58 L 18 114/66 93 11/28/18 12:30 60 16 11/28/18 12:01 65 27 H 130/75 93 11/28/18 12:00 63 14 94 11/28/18 11:32 65 17 94 11/28/18 11:31 65 19 114/68 94 11/28/18 11:30 68 17 135/74 92 11/28/18 11:01 66 6 L 135/74 96 11/28/18 11:00 69 18 95 11/28/18 10:32 66 17 92 11/28/18 10:31 69 16 112/72 92 11/28/18 10:30 69 18 96 11/28/18 10:00 63 16 136/68 94 11/28/18 09:57 72 23 109/69 95 11/28/18 09:37 78 29 H 97 11/28/18 09:00 63 22 112/65 94 11/28/18 08:46 66 17 95 11/28/18 08:45 66 14 105/72 93 11/28/18 08:44 62 16 94 11/28/18 07:01 105/63 11/28/18 07:00 65 17 92 11/28/18 06:32 63 19 94 11/28/18 06:27 72 67 20 118/70 118/70 91 11/28/18 06:24 92 11/28/18 06:05 36.4 C L 76 18 112/64 94
--- NOTE | 2018-11-28 19:13 | Hospitalist Progress Note ---
Date of Service November 28, 2018 Subjective Attending addendum: Patient's diagnosed with pituitary macroadenoma MRI of brain in 2016 the mass was 33 x34 x 24 mm and was having mass-effect on the optic chiasm Patient never followed up with neuroendocrine Patient complains of chronic headache/dizzy spell MRI of brain with contrast was ordered for evaluation Patient continues to have high-grade heart block on monitor MRI brain canceled Almita Jewell MD Results & Data Vital Signs (Past 12 Hours) Vital Signs Temp Pulse Pulse Resp BP BP Pulse Ox 11/28/18 16:00 61 11/28/18 15:45 36.6 C 64 20 138/72 94 11/28/18 13:33 36.6 C 64 18 143/68 H 94 11/28/18 13:18 36.6 C 64 20 143/68 H 94 11/28/18 12:31 58 L 18 114/66 93 11/28/18 12:30 60 16 11/28/18 12:01 65 27 H 130/75 93 11/28/18 12:00 63 14 94 11/28/18 11:32 65 17 94 11/28/18 11:31 65 19 114/68 94 11/28/18 11:30 68 17 135/74 92 11/28/18 11:01 66 6 L 135/74 96 11/28/18 11:00 69 18 95 11/28/18 10:32 66 17 92 11/28/18 10:31 69 16 112/72 92 11/28/18 10:30 69 18 96 11/28/18 10:00 63 16 136/68 94 11/28/18 09:57 72 23 109/69 95 11/28/18 09:37 78 29 H 97 11/28/18 09:00 63 22 112/65 94 11/28/18 08:46 66 17 95 11/28/18 08:45 66 14 105/72 93 11/28/18 08:44 62 16 94
[2018-11-28] MEDS: HEPARIN SOD 5,000 UNIT/0.5 ML VIAL SQ SCH (21:33)
[2018-11-29] MEDS: D5W AND NSS 1,000 ML IV SCH ×2 (03:43→16:25)
[2018-11-29] MEDS: PIPERACILLIN/TAZOBACTAM 3.375 GM in DEXTROSE 5% 100 ML IV SCH ×3 (03:45→19:43)
[2018-11-29] MEDS: HEPARIN SOD 5,000 UNIT/0.5 ML VIAL SQ SCH ×3 (05:49→21:52)
[2018-11-29 07:05] LABS: Albumin Level 2.6 gm/dl (3.4-5.0); BUN Creatinine Ratio 6.3 (10-20); Calcium 8.2 mg/dl (8.5-10.1); Creatinine Clr Calc Pharmacy 60.9 ml/min; Est GFR (African American) 89.5; Est GFR (Non-African American) 77.3; Potassium 3.5 mmol/L (3.5-5.1)
[2018-11-29 07:10] LABS: Albumin Globulin Ratio 0.9 (0.9-2); Bilirubin Direct 4.4 mg/dl (0-0.2); Bilirubin,Total 6.5 mg/dl (0.2-1); Globulin 2.8 gm/dl (2.5-4.0); Total Protein 5.4 gm/dl (6.4-8.2)
[2018-11-29] MEDS ORDERED: fentaNYL citrate 100 MCG/2 ML VIAL ONE (07:19)
[2018-11-29] MEDS ORDERED: MIDAZOLAM HCL 1 MG/ML 2ML VIAL ONE (07:19)
[2018-11-29 07:21] LABS: Estimated Average Glucose 100 mg/dl; Hemoglobin A1C 5.1 % (4.5-5.6)
--- NOTE | 2018-11-29 08:08 | Hospitalist Progress Note ---
Date of Service November 29, 2018 Assessment & Plan (1) Common bile duct (CBD) obstruction: (2) Epigastric pain: Ongoing issue for months but worsening symptoms over past three days, particularly past 24 hours. Noted to have elevated LFTs (TB: 4.4, AST - 412, ALT- 379, ALP - 193 ) and mild GB wall thickening and mild pericholecystic edema on imaging - Per surgery consult early acute vs chronic cholecystitis. -Elevated LFTs, obstructive jaundice with CT showing CBD dilation -CT scan - CBD dilation - surgery concerned about CBD stone. -S/P ERCP - Mirizzi syndrome. CBD stone removal with plastic stent placement. -IV fluids. Clear liquids started -Empirically on IV Zosyn - Day 2 -Blood cx x 2 - not collected on admission (now on day 2 antibiotics)-no signs of sepsis/fever Outpatient plan-hold Xarelto/anticoagulation for 5 days post ERCP. Biliary stent removal in 6 weeks (3) Heart block, AV: Baseline first-degree AV block but noted to have Mobitz 1 second-degree AV block and transient third-degree AV block with pauses on the monitor in ED. -External pacemakers placed -During procedure -ERCP- had HR drop to 20s requiring atropine and external pacing -Discussed with anesthesia/cardiology. Plan will be temporary pacemaker on ay followed by cholecystectomy by surgery -Meanwhile we will continue to monitor closely on telemetry (4) Pulmonary embolism: -Jul 2018, unprovoked -Xarelto on hold for possible surgery (5) Pituitary tumor: Last neurology evaluation appears to be in 2016 - pt denies following up for neuroendocrine tumor as recommended in last neuro note. - MRI needs to be repeated- will order today (6) GERD (gastroesophageal reflux disease): Not currently taking any medication for this complaint - pt does report increasing heartburn symptoms -Started on protonix (7) BPH with obstruction/lower urinary tract symptoms: Restart flomax and proscar DVT PROPHYLAXIS Xarelto on hold Heparin SQ DISPOSITION Medical mx in progress Monitor closely on tele monitor Subjective Patient is status post ERCP with stone removal and bile duct stent placement. During procedure had heart rate dropping down to 20s requiring atropine/external pacing. Heart rate went up to 90s. Currently in 50s. Patient denies any pain, dizziness, chills, shortness of breath, chest pain. Asking for food Physical Exam Physical Exam: GENERAL- AAOX3, No acute distress LUNGS- Air entry bilaterally equal. No rales, rhonchi, crackles, wheezes heard. HEART- Regular rate and rhythm. No murmurs ABDOMEN- Soft, non tender, non distended, Bowel sounds heard. EXTREMITIES- Good peripheral pulses, no edema Results & Data Vital Signs (Past 12 Hours) Vital Signs Temp Pulse Pulse Resp BP Pulse Ox 11/29/18 07:45 36.9 C 62 16 101/58 L 94 11/29/18 03:47 36.7 C 63 17 101/59 L 95 11/28/18 23:24 36.5 C 67 17 104/63 96 11/28/18 22:20 54 L (1) Pulmonary embolism Chronicity: acute Pulmonary embolism type: unspecified (2) GERD (gastroesophageal reflux disease) Esophagitis presence: without esophagitis Qualified Code(s): K21.9 - Gastro- esophageal reflux disease without esophagitis
[2018-11-29] MEDS ORDERED: fentaNYL citrate 100 MCG/2 ML VIAL IV PRN (09:32)
[2018-11-29] MEDS ORDERED: ATROPINE SULFATE 0.1 MG/ML 10ML SYR IV PRN (09:32)
[2018-11-29] MEDS ORDERED: ONDANSETRON INJ 2 MG/ML 2 ML VIAL IV PRN (09:32)
[2018-11-29] MEDS ORDERED: ePHEDrine sulfate 50 MG/ML AMP IV PRN (09:32)
--- NOTE | 2018-11-29 09:34 | Anesthesiology Consultation ---
Date of Service November 29, 2018 Assessment & Plan (1) Encounter for pre-operative examination: Chart Review Chart Review: Acceptable Risk for Surgery and Patient NOT seen in Pre Admission Testing Consults Requested none ASA [id number] Proposed Anesthesia Anesthesia Type: General Risk / Benefits Reviewed With: PT / POA / Parent / Guardian, Accepts Plan and I nformed Consent Obtained History Surgery Operation Date: 11/29/18 10:00 Proposed Procedures p Endoscopic Retrograde Cholangiopancreato - Sussy Shields MD Operation Date: 12/01/18 10:30 Proposed Procedures p Endoscopic Retrograde Cholangiopancreatogram - Francois Husain MD Height/Weight Height: 5 ft 11 in Weight: 68 kg Allergies Allergy/AdvReac Type Severity Reaction Status Date / Time No Known Allergies Allergy Unverified 11/28/18 06:36 Medications Home Medications Medication Instructions Recorded Confirmed Last Taken finasteride 5 mg PO QAM 07/20/18 11/28/18 11/27/18 tamsulosin 0.4 mg PO QAM 07/20/18 11/28/18 11/27/18 rivaroxaban [Xarelto] 20 mg PO QAM 08/19/18 11/28/18 11/27/18 Active Medications Generic Name Dose Route Start Last Admin Trade Name Freq PRN Reason Stop Dose Admin Heparin Sodium (Porcine) 5,000 units 11/28/18 22:00 11/29/18 05:49 Heparin Sodium (Porcine) SQ 12/28/18 21:59 5,000 units Q8 SHANDRA Administration Piperacillin Sod/Tazobactam 115 mls @ 28.75 mls/hr 11/28/18 12:00 11/29/18 08:01 Sod 3.375 gm/ Dextrose IV 12/08/18 11:59 Infused Q8H SHANDRA Infusion Protocol Dextrose/Sodium Chloride 1,000 mls @ 80 mls/hr 11/28/18 12:45 11/29/18 03:43 D5w And Nss IV 12/28/18 12:44 80 mls/hr .[id number] SHANDRA Administration Ioversol 93 ml 11/28/18 09:28 11/28/18 09:29 Optiray 320 100ml IV 12/02/18 09:27 93 ml ONCE PRN Administration Interaction Checking NPO Date Last Intake of Fluids: 11/28/18 Time Last Intake of Fluids: 18:00 Date Last Intake of Solids: 11/27/18 Time Last Intake of Solids: 16:00 Past Medical History Medical History Heart block, AV (Acute) First degree, several periods of third degree block (asymptomatic). cardiology following and have talked about pacemaker at a later date but deferring until treatment of gallstone completed. external pacemaker pads applied. BPH with obstruction/lower urinary tract symptoms (Chronic) Pituitary tumor (Chronic) Pituitary macroadenoma - dx in 2008 Left femoral vein DVT (Resolved) Pulmonary embolism (Resolved) GERD (gastroesophageal reflux disease) (Chronic) Dyslipidemia (Chronic) Essential hypertension (Chronic) Hypercoagulable state (Chronic) Lung nodule (Chronic) Fracture of medial malleolus, right, closed (Resolved) Fracture of multiple ribs of right side (Resolved) Fracture of right acetabulum (Resolved) Fracture of right patella (Resolved) History of bacterial pneumonia (Resolved) History of skin cancer (Resolved) Traumatic closed fracture of distal ulna with minimal displacement (Resolved) Right Exercise / Class Metabolic Activity III < 4 Walking/Shop/Light housework Past Surgical History Surgical History History of hernia repair (Chronic) History of appendectomy (Chronic) History of femur fracture (Resolved) repaired surgically at age 15 History of hip surgery (Resolved) ORIF fracture of right acetabulum in 2017 Hx of right knee surgery (Resolved) ORIF right patella fracture Past Anesthesia History No Hx of Anesthesia Complications and No Family Hx of Anesthesia Complications History of PONV No Hx of PONV and No Hx of Motion Sickness Social History Smoking Status: Never smoker Do You Dip or Chew Tobacco: No Hx Alcohol Use: Yes Alcohol type: beer alcohol intake frequency: 0-2 drinks per day Hx Substance Use: No substance use type: does not use Physical Exam Vital Signs Last Vital Signs Temp 36.9 C 11/29/18 07:45 Pulse 62 11/29/18 07:45 Resp 16 11/29/18 07:45 BP 101/58 L 11/29/18 07:45 Pulse Ox 94 11/29/18 07:45 Constitutional no altered mental status ENMT Mouth: + dentition abnormality, + poor dentition and + chipped teeth; no TMJ abnormality, no TMJ clicking and no loose teeth Thyromental Distance: > or= 3.5 Finger Breadths Mallampati Class: II Neck normal visual inspection Respiratory normal respiratory effort; no respiratory distress Cardiovascular Rate/Rhythm: regular rate and regular rhythm external pacemaker pads applied Musculoskeletal Spine: + limited cervical ROM; no pain with cervical ROM Neurologic moves all extremities Motor/Sensory: no sensory deficit Psychiatric Orientation: alert and oriented x 3 Testing Laboratory Results 11/28/18 06:22 11/29/18 06:00 PT 12.1 Seconds (9.0-12.0) H 11/28/18 14:00 INR 1.2 (0.9-1.1) H 11/28/18 14:00 APTT 32.5 Seconds (21.0-31.0) H 11/28/18 14:00 Hemoglobin A1c 5.1 % (4.5-5.6) 11/29/18 06:00 Urine Color Dark Yellow 11/28/18 07:00 Urine Appearance Clear (Clear) 11/28/18 07:00 Urine pH 8.5 (4.5-7.5) H 11/28/18 07:00 Ur Specific [place] 1.011 (1.000-1.030) 11/28/18 07:00 Urine Protein Negative (Negative) 11/28/18 07:00 Urine Glucose (UA) Negative (Negative) 11/28/18 07:00 Urine Ketones Negative (Negative) 11/28/18 07:00 Urine Nitrite Negative (Negative) 11/28/18 07:00 Ur Leukocyte Esterase Negative (Negative) 11/28/18 07:00 Electrocardiogram Date: 11/29/18 Findings: + NSR @ (60) Sinus rhythm with 1st degree A-V block Otherwise normal ECG When compared with ECG of 28-NOV-2018 10:42, No significant change was found Chest X-Ray Date: 11/28/18 [facility], [place] [phone] XRay Report Patient: IZA ERICKSON Date: 11/28/18 MR#: [id number]: [address] Acct ID:[id number]: [address] Date: 1940City Zip: [place] [address] Age: 78Location: ED Sex: M Room/Bed: Att Phy: Diagnosis: ABD PAIN Latricia Phy: Nano Sanchez MDService Date: 11/28/18 Fam Phy: Interpreting Phy: Ronnie Oswald MD Admit Phy: Ordering Phy: Titus Galvan MD cc: ~ XR chest 1V portable CLINICAL HISTORY: Acute javad pain COMPARISON STUDY: 08/19/2018 FINDINGS: Mild emphysematous change. Chronic subsegmental atelectasis left base. No acute focal infiltrate. IMPRESSION: Chronic change. No acute process.
[2018-11-29] MEDS ORDERED: LIDOCAINE HCL 2% 2 ML VIAL/AMP(20MG/ML) INFIL ONE (09:42)
[2018-11-29] MEDS ORDERED: SUCCINYLCHOLINE CHLORIDE 20 MG/ML 10 ML VIAL ONE (09:42)
[2018-11-29] MEDS ORDERED: ONDANSETRON INJ 2 MG/ML 2 ML VIAL ONE (09:42)
[2018-11-29] MEDS ORDERED: PROPOFOL IV EMULSION 10 MG/ML 20 ML VIAL IV ONE (09:42)
[2018-11-29] MEDS ORDERED: INDOMETHACIN 50 MG SUPP PR STA (09:58)
--- NOTE | 2018-11-29 09:58 | History & Physical Bridge Note ---
Date of Service November 29, 2018 History & Physical Bridge Note I have examined the patient, reviewed the History & Physical and in the interval since the performance of the History & Physical I have noted the following changes of clinical significance: no changes noted ERCP today , I explained risk, benefit and alternatives, risk of pancreatitis and perforation. Patient consented.
--- NOTE | 2018-11-29 10:00 | Surgery Progress Note ---
Date of Service November 29, 2018 Assessment & Plan (1) Acute cholecystitis: pt very high surgical risk... clinically improved already Tbili increased today. likely passed/passing stone. for ERCP today in light of his age, DVT/PE's, and heart block, I would not recommend surgery at this time...discussed with cardiology ( Dr. Alarcon)..they can place a temporary pacer if surgery necessary...will likely need permanent pacer in near future already clinically improved. recommend antibiotics and ERCP. if clinically has persistent symptoms after ERCP could consider percutaneous cholecystostomy tube. will follow along to help direct care (2) Elevated LFTs: Subjective pt seen/feeling better today. denies abdominal pain. Physical Exam Physical Exam: alert. nad Heent: +icteric abd: soft. nt. nd. no g/r/r Results & Data Vital Signs (Past 12 Hours) Vital Signs Temp Pulse Pulse Resp BP Pulse Ox 11/29/18 07:45 36.9 C 62 16 101/58 L 94 11/29/18 03:47 36.7 C 63 17 101/59 L 95 11/28/18 23:24 36.5 C 67 17 104/63 96 11/28/18 22:20 54 L
[2018-11-29] MEDS ORDERED: INDOMETHACIN 50 MG SUPP PR ONE (10:11)
--- NOTE | 2018-11-29 10:11 | Cardiology Progress Note ---
Date of Service November 29, 2018 Assessment & Plan (1) Heart block, AV: Patient is an 78-year-old male without prior history of distant cardiac disease presented with ongoing difficulties with chronic abdominal pain. While in the emergency room however he did demonstrate progression of Conduction system changes with baseline first-degree AV block progressing to Mobitz 1 second-degree AV block and transient third-degree AV block with pauses. Symptoms occurred in association with pain and morphine administration. Patient felt slight lightheadedness with complaint. Telemetry overnight demonstrated transient 2-1 AV block but no further progression to third-degree AV block. Suspect patient underlying chronic conduction system disease unmasked by current hospitalization and issues. May ultimately require permanent pacemaker insertion that would like acute infectious process abated. Agree with proceeding with ERCP. If surgery indicated and conduction system issues remain an issue would consider temporary transvenous pacemaker prior to surgery with permanent pacemaker to follow at later date (2) Pulmonary embolism: Event July 2018 unprovoked but prior history of extensive orthopedic injury 2016. Xarelto on hold ERCP indicated with concerns given unprovoked PE/DVT, exclude malignant process (3) Abdominal pain: Subjective Patient seen and examined, chart, medications telemetry reviewed. Abdominal pain improved this morning but LFTs continue to rise. Anticipated ERCP later this morning No dizziness or lightheadedness Transient 2-1 AV block overnight nonsustained, no further significant pauses. No chest pains or shortness of breath Physical Exam Constitutional: WD/WN, vitals as above Eyes: PERRL, conjunctivae normal, anicteric sclerae ENMT: external ear and nose normal, oropharynx normal Neck: trachea midline, no thyromegaly Cardiovascular: Rate/Rhythm: regular rate and regular rhythm Heart Sounds: normal S1 and normal S2; no murmur and no cardiac rub Palpation: normal PMI Vessels: no JVD, no carotid bruit and no abdominal aortic bruit Extremities: no edema Gastrointestinal (Abdomen): Inspection/Auscultation: normal bowel sounds Percussion/Palpation: + abdomen tender (Mild right upper and lower quadrant); no hepatosplenomegaly Musculoskeletal: no cyanosis or clubbing, extremities motor strength 5/5 Skin: no rashes, warm and dry Results & Data Vital Signs (Past 12 Hours) Vital Signs Temp Pulse Pulse Resp BP Pulse Ox 11/29/18 07:45 36.9 C 62 16 101/58 L 94 06/22/19 03:47 36.7 C 63 17 101/59 L 95 11/28/18 23:24 36.5 C 67 17 104/63 96 11/28/18 22:20 54 L Laboratory Results Laboratory Results - last 24 hr 11/28/18 11/28/18 11/28/18 11:39 11:39 12:41 PT INR APTT PTT Ratio Sodium Potassium Chloride Carbon Dioxide Anion Gap BUN Creatinine Est Cr Clr Drug Dosing Est GFR ( Amer) Est GFR (Non-Af Amer) BUN/Creatinine Ratio Glucose Estimat Average Glucose Hemoglobin A1c Calcium Total Bilirubin Direct Bilirubin AST ALT Alkaline Phosphatase Total Creatine Kinase 50 CK-MB (CK-2) 1.8 CK/CKMB % Calc 3.6 H Troponin I < 0.015 Total Protein Albumin Globulin Albumin/Globulin Ratio TSH 2.940 Ethyl Alcohol mg/dL < 3.0 11/28/18 11/28/18 11/29/18 14:00 18:10 06:00 PT 12.1 H INR 1.2 H APTT 32.5 H PTT Ratio 1.2 Sodium 142 Potassium 3.5 Chloride 109 H Carbon Dioxide 27 Anion Gap 6.0 BUN 6 L Creatinine 0.93 Est Cr Clr Drug Dosing 60.9 Est GFR ( Amer) 89.5 Est GFR (Non-Af Amer) 77.3 BUN/Creatinine Ratio 6.3 L Glucose 93 Estimat Average Glucose Hemoglobin A1c Calcium 8.2 L Total Bilirubin 6.5 H Direct Bilirubin 4.4 H AST 347 H ALT 474 H Alkaline Phosphatase 296 H Total Creatine Kinase CK-MB (CK-2) CK/CKMB % Calc Troponin I < 0.015 Total Protein 5.4 L D Albumin 2.6 L Globulin 2.8 Albumin/Globulin Ratio 0.9 TSH Ethyl Alcohol mg/dL 11/29/18 06:00 PT INR APTT PTT Ratio Sodium Potassium Chloride Carbon Dioxide Anion Gap BUN Creatinine Est Cr Clr Drug Dosing Est GFR ( Amer) Est GFR (Non-Af Amer) BUN/Creatinine Ratio Glucose Estimat Average Glucose 100 Hemoglobin A1c 5.1 Calcium Total Bilirubin Direct Bilirubin AST ALT Alkaline Phosphatase Total Creatine Kinase CK-MB (CK-2) CK/CKMB % Calc Troponin I Total Protein Albumin Globulin Albumin/Globulin Ratio TSH Ethyl Alcohol mg/dL ECG Additional Comments: 29-NOV-2018 06:45:02 [facility] ROUTINE RETRIEVAL Sinus rhythm with 1st degree A-V block Otherwise normal ECG When compared with ECG of 28-NOV-2018 10:42, No significant change was found (1) Pulmonary embolism Chronicity: acute Pulmonary embolism type: unspecified
[2018-11-29] MEDS ORDERED: ATROPINE SO4 1 MG/ML 1ML VIAL ONE (10:29)
[2018-11-29] MEDS ORDERED: PHENYLEPHRINE HCL 10 MG/ML VIAL ONE (10:29)
--- NOTE | 2018-11-29 11:07 | Operative Report ---
Post Operative Report Pre & Post Diagnosis Operation Date: 11/29/18 10:00 Pre-Op Diagnosis: ACUTE CHOLEYSTITIS Post-Op Diagnosis: ACUTE CHOLEYSTITIS Operation Date: 12/01/18 10:30 <No data on this case meets the specified criteria> Procedure Operation Date: 11/29/18 10:00 Actual Procedures p Endoscopic Retrograde Cholangiopancreato(Not Applicable) - Sussy Shields MD Operation Date: 12/01/18 10:30 <No data on this case meets the specified criteria> Surgeon Sussy Shields MD Framing Machine Tender None Estimated Blood Loss 0 Findings See Below (CBD stones removed, Sphincterotomy done, Mirrizi syndrome noted and lone CBD stent placed) Specimens None Description of Procedure ERCP I attest to the content of the Intraoperative Record and any orders documented therein. Any exceptions are noted below.
--- NOTE | 2018-11-29 11:22 | Fluoroscopy Report ---
FL ERCP biliary ductal CLINICAL HISTORY: ERCP. COMPARISON STUDY: Right upper quadrant ultrasound and CT of the abdomen and pelvis November 28, 2018. FLUOROSCOPY TIME: 2 minutes and 39 seconds. FLUOROSCOPIC IMAGES: 6. FINDINGS: These images demonstrate cannulation of the common bile duct. There are apparent filling de fects within the common bile duct which favor choledocholithiasis. Balloon sweep was performed. Final image demonstrates placement of a biliary stent which appears appropriately positioned. IMPRESSION: Fluoroscopic images from ERCP with biliary stent placement. Electronically signed by: Skyler Brothers M.D. 11/29/2018 11:21 AM
--- NOTE | 2018-11-29 11:27 | GI REPORT ---
Patient Name: Esequiel Palomino Procedure Date: 11/29/2018 9:36 AM Date of : 1940 Admit Type: Inpatient Age: 78 Gender: Male Attending MD: Sussy Shields MD Procedure: ERCP Providers: Sussy Shields MD Referring MD: Charlee Correa M.d. Indications: Abdominal pain of suspected biliary origin, Abnormal abdominal CT, Evaluation and possible treatment of bile duct stone(s), For therapy of ascending cholangitis, Jaundice Medicines: General Anesthesia Complications: No immediate complications. Estimated Blood Loss: Estimated blood loss: none. Procedure: Pre-Anesthesia Assessment: - Prior to the procedure, a History and Physical was performed, and patient medications and allergies were reviewed. The patient is competent. The risks and benefits of the procedure and the sedation options and risks were discussed with the patient. All questions were answered and informed consent was obtained. Patient identification and proposed procedure were verified by the physician, the nurse and the anesthesiologist in the procedure room. Mental Status Examination: alert and oriented. Airway Examination: normal oropharyngeal airway and neck mobility. Respiratory Examination: clear to auscultation. CV Examination: normal. ASA Grade Assessment: IV - A patient with severe systemic disease that is a constant threat to life. After reviewing the risks and benefits, the patient was deemed in satisfactory condition to undergo the procedure. The anesthesia plan was to use general anesthesia. Immediately prior to administration of medications, the patient was re-assessed for adequacy to receive sedatives. The heart rate, respiratory rate, oxygen saturations, blood pressure, adequacy of pulmonary ventilation, and response to care were monitored throughout the procedure. The physical status of the patient was re-assessed after the procedure. After obtaining informed consent, the scope was passed under direct vision. Throughout the procedure, the patient's blood pressure, pulse, and oxygen saturations were monitored continuously. The scope was introduced through the mouth, and advanced to the duodenum and used to inject contrast into the bile duct. The ERCP was accomplished without difficulty. The patient tolerated the procedure well. Findings: The drop wire aligner film was normal. The esophagus was successfully intubated under direct vision. The scope was advanced to a normal major papilla in the descending duodenum without detailed examination of the pharynx, larynx and associated structures, and upper GI tract. The upper GI tract was grossly normal. The major papilla was bulging. Due to the tortous and large intraduodenal segment of bile duct and large bulging papilla, selective biliary cannulation could not be achieved despite multipe attempts with sphincterotome hence a 5 mm biliary sphincterotomy was made with a monofilament needle knife using a freehand technique using ERBE electrocautery. There was no post-sphincterotomy bleeding. A 0.035 inch straight Acrobat wire was passed into the biliary tree. The Fusion OMNI sphincterotome was passed over the guidewire and the bile duct was then deeply cannulated. Contrast was injected. I personally interpreted the bile duct images. Ductal flow of contrast was adequate. Image quality was adequate. Contrast extended to the main bile duct. The main bile duct was moderately dilated. The largest diameter was 9 mm. The lower third of the main bile duct contained filling defect(s) thought to be a stone. The middle third of the main bile duct just below the bifurcation had a moderate smooth setnosis due to external compression from a large stone in the cystic duct ( Mirizzi syndrome). The biliary sphincterotomy was extended with a monofilament traction (standard) sphincterotome using ERBE electrocautery. There was no post-sphincterotomy bleeding. Dilation of the common bile duct with an 8 mm balloon dilator was successful. The biliary tree was swept with an 11.5 mm balloon starting at the bifurcation. Three stones were removed. No stones remained. One 10 Fr by 9 cm plastic biliary stent with a single external flap and a single internal flap was placed into the common bile duct and extended above the external compression at the cystic duct. Bile flowed through the stent. The stent was in good position. Indomethacin 100 mg was given via suppository to decrease the risk of post-ERCP pancreatitis (PEP). PD was not cannulated nor injected with contrast. Impression: - The major papilla appeared to be bulging. - The entire main bile duct was moderately dilated and a filling defect consistent with a stone was seen on the cholangiogram. - Mirizzi syndrome noted. - Choledocholithiasis was found. Complete removal was accomplished by biliary sphincterotomy and balloon extraction. - Common bile duct was successfully dilated with balloon. - One plastic biliary stent was placed into the common bile duct and extended above the external compression of Mirrizi. Recommendation: - [facility]. - Avoid aspirin and nonsteroidal anti-inflammatory medicines for 5 days. - Refer to a surgeon for cholecystectomy. - Monitor LFTs. - Repeat ERCP in 6 weeks to remove stent. Sussy Shields MD 11/29/2018 11:27:16 AM This report has been signed electronically. Note Initiated On: 11/29/2018 9:36 AM Number of Addenda: 0 I attest to the content of the Intraoperative Record and orders documented therein, exceptions below {[id number]}
--- NOTE | 2018-11-29 12:18 | Anesthesiology Progress Note ---
Date of Service November 29, 2018 Anesthesia Post Procedure Vital Signs Vital Signs: Temp Pulse Pulse Pulse Resp BP BP 11/29/18 12:10 45 L 17 132/64 11/29/18 12:05 36.6 C 48 L 15 113/57 L 11/29/18 11:55 45 L 16 114/60 11/29/18 11:45 41 L 18 108/56 L 11/29/18 11:35 45 L 17 119/58 L 11/29/18 11:25 48 L 19 113/57 L 11/29/18 11:15 36.1 C L 46 L 13 99/59 L 11/29/18 08:00 54 L 11/29/18 07:45 36.9 C 62 16 101/58 L 11/29/18 03:47 36.7 C 63 17 101/59 L 11/28/18 23:24 36.5 C 67 17 104/63 11/28/18 22:20 54 L 11/28/18 19:16 36.7 C 58 L 20 114/66 11/28/18 16:00 61 11/28/18 15:45 36.6 C 64 20 138/72 11/28/18 13:33 36.6 C 64 18 143/68 H 11/28/18 13:18 36.6 C 64 20 143/68 H 11/28/18 12:31 58 L 18 114/66 11/28/18 12:30 60 16 Pulse Ox 11/29/18 12:10 97 11/29/18 12:05 97 11/29/18 11:55 98 11/29/18 11:45 95 11/29/18 11:35 95 11/29/18 11:25 95 11/29/18 11:15 94 11/29/18 08:00 11/29/18 07:45 94 11/29/18 03:47 95 11/28/18 23:24 96 11/28/18 22:20 11/28/18 19:16 95 11/28/18 16:00 11/28/18 15:45 94 11/28/18 13:33 94 11/28/18 13:18 94 11/28/18 12:31 93 11/28/18 12:30 Pain Intensity Abdomen: Pain Intensity: 8 Transfer of Care Handoff Completed per policy Notes Mental Status: alert / awake / arousable and participated in evaluation Patient Amnestic to Procedure: Yes Nausea / Vomiting: adequately controlled Pain: adequately controlled Airway Patency, RR, SpO2: stable & adequate BP & HR: see Notes below Hydration State: stable & adequate Anesthetic Complications: no major complications apparent and Pt Satisfied with anesthetic care Notes: Patient in PACU was conversant and without complaint and asking about the results of his procedure. Patient was bradycardic beforehand with known first degree heart block. HR in PACU slightly more bradycardic as he is in the high 40's but BP normal and patient denies any feelings of chest pain/pressure/SOB. In the OR, after patient was intubated and when the endoscope was inserted, his HR dropped into the 20's. Patient was given IV dose of atropine and external pacemaker was started (pads and lifepack already connected given his recent hx/o third degree heart block). Atropine brought his HR into the 90's after about 30 seconds of giving it IV and the external pacemaker was turned off. He had no further problems with severe bradycardia during the procedure. I spoke to his hospitalist after the procedure to detail the events of the procedure and his anesthetic. I attempted to page Dr. Alarcon of cardiology but he did not return the page. The hospitalist thought it was appropriate to bring the patient back to PCU with external pads and lifepack and she would contact the fact checker to discuss further treatment (i.e. if patient needs temporary pacing until his acute illness is dealt with and a permanent pacemaker could possibly be implanted). Patient is aware of the plan and had all questions answered.
[2018-11-29] MEDS: PANTOprazole 40 MG TAB PO SCH (13:08)
[2018-11-29] MEDS: FINASTERIDE 5 MG TAB PO SCH (13:09)
[2018-11-29] MEDS ORDERED: PIPERACILL/TAZOBAC CONSULT ACTIVE PRN (15:47)
[2018-11-29] MEDS: TAMSULOSIN HCL 0.4 MG CAP PO SCH (19:44)
[2018-11-30] MEDS ORDERED: POTASSIUM CHLORIDE 20 MEQ TABCR PO STA ×2 (01:40→09:23)
[2018-11-30 02:02] LABS: Hematocrit (blood only) 35.2 % (42-52); Hemoglobin 11.9 g/dL (14.0-18.0); Mean Corpuscular Hgb Conc 33.8 g/dL (32-36); Mean Corpuscular Volume 92.9 fL (80-100); Mean Platelet Volume 10.3 fL (7.4-10.4); Platelet Count 117 K/uL (130-400); RDW Coefficient of Variation 14.4 % (11.5-14.5); Red Blood Count 3.79 M/uL (4.7-6.1); White Blood Count 4.12 K/uL (4.8-10.8)
[2018-11-30 02:20] LABS: BUN Creatinine Ratio 7.2 (10-20); Calcium 7.6 mg/dl (8.5-10.1); Est GFR (African American) 86.2; Est GFR (Non-African American) 74.4; Potassium 3.4 mmol/L (3.5-5.1)
[2018-11-30 02:24] LABS: Albumin Globulin Ratio 0.9 (0.9-2); Albumin Level 2.3 gm/dl (3.4-5.0); Globulin 2.6 gm/dl (2.5-4.0); Total Protein 4.9 gm/dl (6.4-8.2)
[2018-11-30 02:39] LABS: Basophils # (auto) 0.02 K/uL (0-0.2); Basophils % (auto) 0.5 %; Eosinophils # (auto) 0.28 K/uL (0-0.5); Eosinophils % (auto) 6.8 %; Immature Granulocytes # (auto) 0.01 K/uL (0.00-0.02); Immature Granulocytes % (auto) 0.2 %; Lymphocytes # (auto) 0.75 K/uL (1.2-3.4); Lymphocytes % (auto) 18.2 %; Monocytes % (auto) 9.7 %; Neutrophils # (auto) 2.66 K/uL (1.4-6.5); Neutrophils % (auto) 64.6 %; RBC Morphology Unremarkable
[2018-11-30] MEDS: PIPERACILLIN/TAZOBACTAM 3.375 GM in DEXTROSE 5% 100 ML IV SCH ×3 (03:28→20:16)
[2018-11-30] MEDS: D5W AND NSS 1,000 ML IV SCH ×2 (03:28→14:05)
[2018-11-30] MEDS: HEPARIN SOD 5,000 UNIT/0.5 ML VIAL SQ SCH ×3 (06:02→20:16)
[2018-11-30] MEDS: PANTOprazole 40 MG TAB PO SCH (08:53)
[2018-11-30] MEDS: FINASTERIDE 5 MG TAB PO SCH (08:53)
--- NOTE | 2018-11-30 09:36 | Anesthesiology Progress Note ---
Date of Service November 30, 2018 Anesthesia Post Procedure Vital Signs Vital Signs: Temp Pulse Pulse Resp BP Pulse Ox 11/30/18 07:58 36.4 C L 59 L 18 90/51 L 92 11/30/18 03:16 36.4 C L 56 L 17 92/49 L 94 11/29/18 23:59 36.4 C L 55 L 16 91/50 L 93 11/29/18 22:41 54 L 11/29/18 19:12 36.8 C 58 L 17 91/51 L 94 11/29/18 15:55 36.3 C L 62 18 105/62 93 11/29/18 15:48 109/65 11/29/18 15:47 93/51 L 11/29/18 14:17 116/63 11/29/18 13:48 115/66 11/29/18 13:00 133/66 11/29/18 12:15 47 L 18 129/62 96 11/29/18 12:10 45 L 17 132/64 97 11/29/18 12:05 36.6 C 48 L 15 113/57 L 97 11/29/18 11:55 45 L 16 114/60 98 11/29/18 11:45 41 L 18 108/56 L 95 11/29/18 11:35 45 L 17 119/58 L 95 11/29/18 11:25 48 L 19 113/57 L 95 11/29/18 11:15 36.1 C L 46 L 13 99/59 L 94 Pain Intensity Abdomen: Pain Intensity: 8 Transfer of Care Handoff Completed per policy Notes Mental Status: alert / awake / arousable Patient Amnestic to Procedure: Yes Nausea / Vomiting: adequately controlled Pain: adequately controlled Airway Patency, RR, SpO2: stable & adequate BP & HR: stable & adequate Hydration State: stable & adequate Anesthetic Complications: no major complications apparent Notes: HR in 50s overnight
--- NOTE | 2018-11-30 09:40 | Gastroenterology Progress Note ---
Date of Service November 30, 2018 Supervising Physician Co-Signing Physician Notes 78 yo male admitted with abdominal pain, found to have dilated cbd and tb of 6 with leukocytosits concerning for cholangitis. Underwent ERCP on 11/29 with removal of stones, stents placed. Doing better this morning. Continue abx. Defer to surgery/cardiology on surgical plan for gallbladder pending his cardiac assessment. GI will sign off. Subjective No acute complaints Feeling better this morning Family at bedside Wanted to know if stones were removed from his cbd- discussed findings of ercp with him. No chest pain reported. Review of Systems Review of Systems: All systems reviewed & are unremarkable except as noted in HPI & below Physical Exam Physical Exam: well nourished male in nad Eyes: PERRL, conjunctivae normal, anicteric sclerae Cardiovascular: RRR, no murmur, no edema Gastrointestinal (Abdomen): normal bowel sounds, soft, nontender, no hepatosplenomegaly Results & Data Vital Signs (Past 12 Hours) Vital Signs Temp Pulse Pulse Resp BP Pulse Ox 11/30/18 07:58 36.4 C L 59 L 18 90/51 L 92 11/30/18 03:16 36.4 C L 56 L 17 92/49 L 94 11/29/18 23:59 36.4 C L 55 L 16 91/50 L 93 11/29/18 22:41 54 L Labs reviewed Lft's downtrending
--- NOTE | 2018-11-30 11:18 | Surgery Progress Note ---
Date of Service November 30, 2018 Assessment & Plan (1) Common bile duct (CBD) obstruction: discussed Dr. Shields from GI --pt with large gallstone in neck of gallbladder stricturing CBD. rec's lap javad discussed with Dr. [place] Alarcon of cardiology- he is planning on a temporary pacer tomorrow so we could do lap javad tomorrow afternoon or Saturday discussed with patient and his son at bedside discussed risks ( bleeding/infection/dvt/pe/mi/cva/bile leaks/injury to an organ etc...) questions answered. plan lap javad after pacer placed. (2) Acute cholecystitis: Subjective pt seen. a little "sore" in upper abdomen since ERCP. no n/v. "hungry" Physical Exam Physical Exam: alert. nad abd: soft. mild epigastric ttp. no g/r/r Results & Data Vital Signs (Past 12 Hours) Vital Signs Temp Pulse Resp BP Pulse Ox 11/30/18 07:58 36.4 C L 59 L 18 90/51 L 92 11/30/18 03:16 36.4 C L 56 L 17 92/49 L 94 11/29/18 23:59 36.4 C L 55 L 16 91/50 L 93
--- NOTE | 2018-11-30 11:59 | Hospitalist Progress Note ---
Date of Service November 30, 2018 Assessment & Plan (1) Choledocholithiasis with acute cholecystitis with obstruction: Ongoing issue for months but worsening symptoms over past three days, particularly past 24 hours. Noted to have elevated LFTs (TB: 4.4, AST - 412, ALT- 379, ALP - 193 ) and mild GB wall thickening and mild pericholecystic edema on imaging - Per surgery consult early acute vs chronic cholecystitis. -Elevated LFTs, obstructive jaundice with CT showing CBD dilation ---> Cho ledocholithiasis with CBD obstruction. 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 CBD stone removal with stent placement. -Clear liquids, IVF at 80 cc/hour -Empirically on IV Zosyn - Day 3 -Blood cx x 2 - not collected on admission (now on day 2 antibiotics)-no signs of sepsis/fever PLAN: Per discussion with cardiologytemporary pacemaker placement tomorrow followed by lap cholecystectomy by surgery Outpatient plan-hold Xarelto/anticoagulation for 5 days post ERCP. Biliary stent removal in 6 weeks. (2) Heart block, AV: Baseline first-degree AV block but noted to have Mobitz 1 second-degree AV block and transient third-degree AV block with pauses on the monitor in ED. -External pacemakers placed -During procedure -ERCP- had HR drop to 20s requiring atropine and external pacing. Intermittent episodes of bradycardia and blocks -Discussed with cardiology- plan is for temporary pacemaker on Saturday followed by lap cholecystectomy by surgery -Meanwhile we will continue to monitor closely on telemetry (3) Pulmonary embolism: -Jul 2018, unprovoked -Xarelto on hold for status post ERCP and for lap cholecystectomy tomorrow. (4) Pituitary tumor: Last neurology evaluation appears to be in 2016 - pt denies following up for neuroendocrine tumor as recommended in last neuro note. - MRI needs to be repeated- tried to do it on admission day but with signfiicant bradycardia/high degree AV block requiring removal of pacer pads will not be abl e to do so,. - Discussed with dr pearson- will get MRI compatible Pacemaker. - Can be done outpatient- not urgent. - Will need to follow up outpatient (5) GERD (gastroesophageal reflux disease): Not currently taking any medication for this complaint - pt does report increasing heartburn symptoms -Started on protonix (6) BPH with obstruction/lower urinary tract symptoms: Restart flomax and proscar DVT PROPHYLAXIS Xarelto on hold Heparin SQ DISPOSITION Medical mx in progress Monitor closely on tele monitor Plan is for temporary pacemaker tomorrow followed by lap cholecystectomy Updated son by bedside. Subjective Patient complaining of some soreness in epigastric and right upper quadrant region. Does complain of some dizziness on and off. No nausea, vomiting. Hungry and wants to eat solid food clinical research monitor-significant bradycardia with heart rate dropping down to 30s intermittently Physical Exam Physical Exam: GENERAL- AAOX3, No acute distress LUNGS- Air entry bilaterally equal. No rales, rhonchi, crackles, wheezes heard. HEART- SInus bradycardia + . No murmurs ABDOMEN- Soft, non tender, non distended, Bowel sounds heard. EXTREMITIES- Good peripheral pulses, no edema Results & Data Vital Signs (Past 12 Hours) Vital Signs Temp Pulse Resp BP Pulse Ox 11/30/18 07:58 36.4 C L 59 L 18 90/51 L 92 11/30/18 03:16 36.4 C L 56 L 17 92/49 L 94 11/29/18 23:59 36.4 C L 55 L 16 91/50 L 93 (1) Pulmonary embolism Chronicity: acute Pulmonary embolism type: unspecified (2) GERD (gastroesophageal reflux disease) Esophagitis presence: without esophagitis Qualified Code(s): K21.9 - Gastro- esophageal reflux disease without esophagitis
--- NOTE | 2018-11-30 13:03 | Cardiology Progress Note ---
Date of Service November 30, 2018 Assessment & Plan (1) Heart block, AV: Patient is an 78-year-old male without prior history of distant cardiac disease presented with ongoing difficulties with chronic abdominal pain. While in the emergency room however he did demonstrate progression of Conduction system changes with baseline first-degree AV block progressing to Mobitz 1 second-degree AV block and transient third-degree AV block with pauses. Telemetry overnight demonstrated transient 2-1 AV block but no further progression to third-degree AV block. Patient as noted above had episode of significant bradycardia during endoscopy/ERCP Suspect patient underlying chronic conduction system disease unmasked by current hospitalization and issues. Will ultimately require permanent pacemaker insertion Plan: Patient will require temporary pacemaker to allow cholecystectomy. Anticipate procedure tomorrow morning with cholecystectomy to follow ultimately undergoing dual-chamber pacemaker once abdominal issues are stabilized Patient to be n.p.o. after midnight (2) Pulmonary embolism: Event July 2018 unprovoked but prior history of extensive orthopedic injury 2017. 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 MRI compatible pacemaker indicated Subjective Seen and examined, chart medications telemetry reviewed. Has had intermittent episodes of second and third-degree AV block with bradycardia transiently. Patient notes dizziness though symptoms exceed episodes of arrhythmias and do not correlate. Notes no chest pain or discomfort. Mild abdominal discomfort remains present. Events of day prior noted patient underwent endoscopy and ERCP with transient heart block and bradycardia requiring therapy with atropine and temporary transcutaneous pacing. Biliary stent placed however patient will require cholecystectomy to treat underlying process Physical Exam Constitutional: WD/WN, vitals as above Eyes: PERRL, conjunctivae normal, anicteric sclerae ENMT: external ear and nose normal, oropharynx normal Neck: trachea midline, no thyromegaly Cardiovascular: Rate/Rhythm: regular rate and regular rhythm Heart Sounds: normal S1 and normal S2; no murmur and no cardiac rub Palpation: normal PMI Vessels: no JVD, no carotid bruit and no abdominal aortic bruit Extremities: no edema Gastrointestinal (Abdomen): Inspection/Auscultation: normal bowel sounds Percussion/Palpation: + abdomen tender (Mild right upper and lower quadrant); no hepatosplenomegaly Musculoskeletal: no cyanosis or clubbing, extremities motor strength 5/5 Skin: no rashes, warm and dry Results & Data Vital Signs (Past 12 Hours) Vital Signs Temp Pulse Resp BP Pulse Ox 11/30/18 12:35 36.8 C 62 18 107/61 94 11/30/18 07:58 36.4 C L 59 L 18 90/51 L 92 11/30/18 03:16 36.4 C L 56 L 17 92/49 L 94 Laboratory Results Laboratory Results - last 24 hr 11/30/18 11/30/18 11/30/18 01:46 01:46 01:46 WBC 4.12 L RBC 3.79 L Hgb 11.9 L D Hct 35.2 L MCV 92.9 MCH 31.4 MCHC 33.8 RDW Std Deviation 49.0 H RDW Coeff of Kal 14.4 Plt Count 117 L MPV 10.3 Immature Gran % (Auto) 0.2 Neut % (Auto) 64.6 Lymph % (Auto) 18.2 [place] % (Auto) 9.7 Eos % (Auto) 6.8 Baso % (Auto) 0.5 Immature Gran # (Auto) 0.01 Neut # (Auto) 2.66 Lymph # (Auto) 0.75 L [place] # (Auto) 0.40 Eos # (Auto) 0.28 Baso # (Auto) 0.02 RBC Morphology Unremarkable Sodium 143 Potassium 3.4 L Chloride 113 H Carbon Dioxide 28 Anion Gap 2.0 L BUN 7 Creatinine 0.96 Est Cr Clr Drug Dosing 59.0 Est GFR ( Amer) 86.2 Est GFR (Non-Af Amer) 74.4 BUN/Creatinine Ratio 7.2 L Glucose 95 Lactate 1.0 Calcium 7.6 L Magnesium 2.0 Total Bilirubin 2.0 H D AST 112 H ALT 305 H Alkaline Phosphatase 235 H Total Protein 4.9 L Albumin 2.3 L Globulin 2.6 Albumin/Globulin Ratio 0.9 (1) Pulmonary embolism Chronicity: acute Pulmonary embolism type: unspecified
[2018-11-30] MEDS: TAMSULOSIN HCL 0.4 MG CAP PO SCH (20:16)
[2018-12-01] MEDS: D5W AND NSS 1,000 ML IV SCH ×2 (01:59→18:23)
[2018-12-01] MEDS: PIPERACILLIN/TAZOBACTAM 3.375 GM in DEXTROSE 5% 100 ML IV SCH ×3 (03:30→20:49)
[2018-12-01] MEDS: HEPARIN SOD 5,000 UNIT/0.5 ML VIAL SQ SCH ×3 (05:08→20:50)
[2018-12-01 06:52] LABS: Basophils # (auto) 0.05 K/uL (0-0.2); Basophils % (auto) 1.1 %; Eosinophils # (auto) 0.53 K/uL (0-0.5); Eosinophils % (auto) 11.6 %; Hematocrit (blood only) 37.8 % (42-52); Hemoglobin 12.8 g/dL (14.0-18.0); Immature Granulocytes # (auto) 0.01 K/uL (0.00-0.02); Immature Granulocytes % (auto) 0.2 %; Lymphocytes # (auto) 1.38 K/uL (1.2-3.4); Lymphocytes % (auto) 30.3 %; Mean Corpuscular Hgb Conc 33.9 g/dL (32-36); Mean Corpuscular Volume 94.7 fL (80-100); Mean Platelet Volume 10.6 fL (7.4-10.4); Monocytes # (auto) 0.49 K/uL (0.11-0.59); Monocytes % (auto) 10.8 %; Neutrophils # (auto) 2.09 K/uL (1.4-6.5); Platelet Count 129 K/uL (130-400); RDW Coefficient of Variation 14.5 % (11.5-14.5); RDW Standard Deviation 50.1 fL (36.4-46.3); Red Blood Count 3.99 M/uL (4.7-6.1); White Blood Count 4.55 K/uL (4.8-10.8)
[2018-12-01 07:22] LABS: Albumin Level 2.5 gm/dl (3.4-5.0); BUN Creatinine Ratio 3.8 (10-20); Calcium 7.9 mg/dl (8.5-10.1); Creatinine Clr Calc Pharmacy 60.3 ml/min; Est GFR (African American) 80.1; Est GFR (Non-African American) 69.1; Magnesium 1.9 mg/dl (1.8-2.4); Potassium 3.5 mmol/L (3.5-5.1)
[2018-12-01 07:29] LABS: Bilirubin,Total 1.3 mg/dl (0.2-1); Globulin 2.6 gm/dl (2.5-4.0); Total Protein 5.1 gm/dl (6.4-8.2)
--- NOTE | 2018-12-01 07:52 | Anesthesiology Progress Note ---
Date of Service December 01, 2018 Anesthesia Post Procedure Vital Signs Vital Signs: Temp Pulse Pulse Resp BP Pulse Ox 12/01/18 03:31 36.6 C 60 17 106/61 95 12/01/18 00:00 36.9 C 55 L 17 110/64 97 11/30/18 22:20 55 L 11/30/18 19:48 36.6 C 59 L 20 117/68 94 11/30/18 15:40 36.5 C 62 18 105/62 93 11/30/18 12:35 36.8 C 62 18 107/61 94 11/30/18 07:58 36.4 C L 59 L 18 90/51 L 92 Pain Intensity Abdomen: Pain Intensity: 8 Notes Mental Status: alert / awake / arousable and participated in evaluation Patient Amnestic to Procedure: Yes Nausea / Vomiting: adequately controlled Pain: adequately controlled Airway Patency, RR, SpO2: stable & adequate BP & HR: stable & adequate Hydration State: stable & adequate Anesthetic Complications: no major complications apparent and Pt Satisfied with anesthetic care
[2018-12-01] MEDS ORDERED: MIDAZOLAM HCL 1 MG/ML 2ML VIAL ONE (09:15)
[2018-12-01] MEDS ORDERED: fentaNYL citrate 100 MCG/2 ML VIAL ONE (09:15)
--- NOTE | 2018-12-01 10:34 | Operative Report ---
Post Operative Report Pre & Post Diagnosis Advanced heart block Procedure Insertion of temporary transvenous pacemaker Ultrasound guided RT internal juglar venous access. Surgeon Tesfaye Joshi MD Learning Support Resource Room Teacher Tae Connor Estimated Blood Loss 5 Findings Consistent with Post-Op Diagnosis Fluids none Specimens none Drains none Complications none Disposition Disposition: Surgical ICU Description of Procedure - Patient prepped and draped in standard fashion. - 1% lidocaine injected for local anesthesia - RT IJ accessed under ultrasound guidance. - 6Fr sheath placed into RT IJ - 6Fr temporary pacing wire navigated to RV under fluoroscopic guidance. - Appropriate pacing with down to output of 1 mA. - Final settings - VVI at 50bmp, 10 mA. Summary: 1. Successful placement of transcutaneous temporary pacing wire. I attest to the content of the Intraoperative Record and any orders documented therein. Any exceptions are noted below.
[2018-12-01] MEDS: PANTOprazole 40 MG TAB PO SCH (11:27)
[2018-12-01] MEDS: FINASTERIDE 5 MG TAB PO SCH (11:27)
--- NOTE | 2018-12-01 11:27 | Cardiology Progress Note ---
Date of Service December 01, 2018 Assessment & Plan (1) Heart block, AV: Patient is an 78-year-old male without prior history of distant cardiac disease presented with ongoing difficulties with chronic abdominal pain. While in the emergency room however he did demonstrate progression of Conduction system changes with baseline first-degree AV block progressing to Mobitz 1 second-degree AV block and transient third-degree AV block with pauses. Telemetry overnight demonstrated transient 2-1 AV block but no further progression to third-degree AV block. Patient as noted above had episode of significant bradycardia during endoscopy/ERCP Suspect patient underlying chronic conduction system disease unmasked by current hospitalization and issues. Will ultimately require permanent pacemaker insertion Patient underwent successful transcutaneous pacemaker insertion in anticipation of cholecystectomy will follow with permanent pacemaker once abdominal issues have stabilized next 2 to 3 days (2) Pulmonary embolism: Event July 2018 unprovoked but prior history of extensive orthopedic injury 2016. 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 MRI compatible pacemaker indicated Subjective Patient seen and examined pre-and post procedure, no difficulties other than occasional dizziness overnight. Still with moderate abdominal discomfort. Patient is anticipating cholecystectomy tomorrow Tolerated transcutaneous pacemaker insertion this morning well Physical Exam Constitutional: WD/WN, vitals as above Eyes: PERRL, conjunctivae normal, anicteric sclerae ENMT: external ear and nose normal, oropharynx normal Neck: trachea midline, no thyromegaly Transcutaneous pacemaker and right IJ position without bleeding or irritation Cardiovascular: Rate/Rhythm: regular rate and regular rhythm Heart Sounds: normal S1 and normal S2; no murmur and no cardiac rub Palpation: normal PMI Vessels: no JVD, no carotid bruit and no abdominal aortic bruit Extremities: no edema Gastrointestinal (Abdomen): Inspection/Auscultation: normal bowel sounds Percussion/Palpation: + abdomen tender (Mild right upper and lower quadrant); no hepatosplenomegaly Musculoskeletal: no cyanosis or clubbing, extremities motor strength 5/5 Skin: no rashes, warm and dry Results & Data Vital Signs (Past 12 Hours) Vital Signs Temp Pulse Pulse Resp BP Pulse Ox 12/01/18 08:00 65 12/01/18 07:46 36.4 C L 56 L 18 114/69 93 12/01/18 03:31 36.6 C 60 17 106/61 95 12/01/18 00:00 36.9 C 55 L 17 110/64 97 Laboratory Results Laboratory Results - last 24 hr 12/01/18 12/01/18 12/01/18 06:13 06:13 11:00 WBC 4.55 L RBC 3.99 L Hgb 12.8 L Hct 37.8 L MCV 94.7 MCH 32.1 MCHC 33.9 RDW Std Deviation 50.1 H RDW Coeff of Kal 14.5 Plt Count 129 L MPV 10.6 H Immature Gran % (Auto) 0.2 Neut % (Auto) 46.0 Lymph % (Auto) 30.3 [place] % (Auto) 10.8 Eos % (Auto) 11.6 Baso % (Auto) 1.1 Immature Gran # (Auto) 0.01 Neut # (Auto) 2.09 Lymph # (Auto) 1.38 [place] # (Auto) 0.49 Eos # (Auto) 0.53 H Baso # (Auto) 0.05 Sodium 144 Potassium 3.5 Chloride 112 H Carbon Dioxide 27 Anion Gap 5.0 BUN 4 L Creatinine 1.02 Est Cr Clr Drug Dosing 60.3 Est GFR ( Amer) 80.1 Est GFR (Non-Af Amer) 69.1 BUN/Creatinine Ratio 3.8 L Glucose 93 Calcium 7.9 L Magnesium 1.9 Total Bilirubin 1.3 H AST 39 H ALT 204 H Alkaline Phosphatase 194 H Total Protein 5.1 L Albumin 2.5 L Globulin 2.6 Albumin/Globulin Ratio 1.0 Nasal Screen MRSA (PCR) Pending (1) Pulmonary embolism Chronicity: acute Pulmonary embolism type: unspecified
--- NOTE | 2018-12-01 11:34 | Surgery Progress Note ---
Date of Service December 01, 2018 Assessment & Plan (1) Choledocholithiasis with acute cholecystitis with obstruction: pacer placed. plan lap javad tomorrow questions answered. Subjective pt doing ok. s/p temporary pacer placement this am. still some mild epigastric and RUQ discomfort. Physical Exam Physical Exam: alert. nad abd: soft. mild epigastric ttp. no peritoneal signs Results & Data Vital Signs (Past 12 Hours) Vital Signs Temp Pulse Pulse Resp BP Pulse Ox 12/01/18 08:00 65 12/01/18 07:46 36.4 C L 56 L 18 114/69 93 12/01/18 03:31 36.6 C 60 17 106/61 95 12/01/18 00:00 36.9 C 55 L 17 110/64 97
--- NOTE | 2018-12-01 12:09 | Hospitalist Progress Note ---
Date of Service December 01, 2018 Assessment & Plan (1) Choledocholithiasis with acute cholecystitis with obstruction: Ongoing issue for months but worsening symptoms over three days, particularly past 24 hours. Noted to have elevated LFTs (TB: 4.4, AST - 412, ALT- 379, ALP - 193 ) and mild GB wall thickening and mild pericholecystic edema on imaging - Per surgery consult early acute vs chronic cholecystitis. -Elevated LFTs, obstructive jaundice with CT showing CBD dilation ---> Choledoc holithiasis with CBD obstruction. 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 CBD stone removal with stent placement. -Clear liquids, IVF -Empirically on IV Zosyn - Day 4 -Blood cx x 2 - not collected on admission (now on day 2 antibiotics)-no signs of sepsis/fever PLAN: Temporary pacemaker today followed by lap cholecystectomy by surgery. Outpatient plan-hold Xarelto/anticoagulation for 5 days post ERCP. Biliary stent removal in 6 weeks. (2) Heart block, AV: Baseline first-degree AV block but noted to have Mobitz 1 second-degree AV block and transient third-degree AV block with pauses on the monitor in ED. -S/P External pacemakers placement since admission -During procedure -ERCP- had HR drop to 20s requiring atropine and external pacing. Intermittent episodes of bradycardia and blocks -Discussed with cardiology- Plan is for temporary pacemaker today followed by lap cholecystectomy by surgeon (3) Pulmonary embolism: -Jul 2018, unprovoked -Xarelto on hold for status post ERCP and for lap cholecystectomy (4) Pituitary tumor: Last neurology evaluation appears to be in 2016 - pt denies following up for neuroendocrine tumor as recommended in last neuro note. - MRI needs to be repeated- tried to do it on admission day but with signfiicant bradycardia/high degree AV block requiring removal of pacer pads will not be able to do so,. - Discussed with dr pearson- will get MRI compatible Pacemaker. - Can be done outpatient- not urgent. - Will need to follow up outpatient (5) GERD (gastroesophageal reflux disease): Not currently taking any medication for this complaint - pt does report increasing heartburn symptoms -Started on protonix (6) BPH with obstruction/lower urinary tract symptoms: -Restart flomax and proscar DVT PROPHYLAXIS -Xarelto on hold -Heparin SQ DISPOSITION -Medical mx in progress -Monitor closely on tele monitor Son was updated by bedside yesterday and aware about the plan Updated son by bedside. Subjective Patient for temporary pacemaker placement today. Still complains of little epigastric/right upper quadrant soreness. No nausea, vomiting associated with it. No fever, chills. Does have on and off dizziness secondary to bradycardia/block awake overnight monitor - Pause, Intermittent AV block -third/Mobitz 2 Physical Exam Physical Exam: GENERAL- AAOX3, No acute distress LUNGS- Air entry bilaterally equal. No rales, rhonchi, crackles, wheezes heard. HEART- SInus bradycardia + . No murmurs ABDOMEN- Soft, mild epigastric tenderness, no rigidity, guarding, bowel sounds present EXTREMITIES- Good peripheral pulses, no edema Results & Data Vital Signs (Past 12 Hours) Vital Signs Temp Pulse Pulse Resp BP Pulse Ox 12/01/18 08:00 65 12/01/18 07:46 36.4 C L 56 L 18 114/69 93 12/01/18 03:31 36.6 C 60 17 106/61 95 (1) Pulmonary embolism Chronicity: acute Pulmonary embolism type: unspecified (2) GERD (gastroesophageal reflux disease) Esophagitis presence: without esophagitis Qualified Code(s): K21.9 - Gastro- esophageal reflux disease without esophagitis
--- NOTE | 2018-12-01 16:00 | Critical Care Consultation ---
Date of Consultation December 01, 2018 Assessment & Plan (1) Heart block, AV: Impression: 1. Acute cholecystitis status post ERCP with retraction of cholelithiasis and stent placement. 2. High-grade AV block, status post temporary pacer wire. 3. Preop evaluation for cholecystectomy in the morning. Plan: 1. Appreciate GI, surgery and cardiology input. 2. Keep the patient in the ICU with monitoring of the pacer wire activity. So far the patient is keeping his own sinus rhythm. 3. Continue Zosyn for antibiotic. 4. N.p.o. after midnight. 5. IV fluid postmidnight. 6. Patient is going to the OR for cholecystectomy in the morning. 7. Placement of permanent pacemaker once the biliary issues resolved. 8. Continue DVT and GI prophylaxis. 9. Core measures for the ICU has been met. 10. Discussed with the staff on rounds and details. Critical care time spent with the patient was 45 minutes. History of Present Illness Reason for Consultation: High-grade AV block status post pacer wire. Requesting Physician: Dr. Faustin Attending Physician: Gretchen Faustin History of Present Illness Dear Dr. Faustin: Thank you for the kind referral of Esequiel to critical care service. This is 78-year-old gentleman with history of acute cholecystitis with cholelithiasis s tatus post ERCP with removal of stone and common bile duct stent done 2 days ago, the patient was admitted to the hospital and plan for cholecystectomy, the patient was found to have bradycardia with high-grade AV block, and the patient was taken to the Clinical Laboratory Technician for temporary pacer wire placement, and transferred to the ICU for continuous monitoring. The patient is planned to go for cholecystectomy in the morning. When I interviewed the patient, he has been having episodes of near syncope for the past 35 years, he has not seek any medical attention in that regard. He denies any chest pain, no history of coronary artery disease in the past. Denies any nausea or vomiting, the patient has no history of passing out, no history of increased swelling in his lower extremities or shortness of breath, he does not have any orthostatic symptoms. Review of system including 14 systems has been done, no remarkable symptoms were reported. His past medical history significant for acute cholecystitis on this admission, high-grade AV block, BPH, past surgical history significant for appendectomy ,ERCP on this admission, social history consistent with ex smoker quit over 35 years ago. He does not have any industrial exposure. Allergies Allergy/AdvReac Type Severity Reaction Status Date / Time No Known Allergies Allergy Unverified 11/28/18 06:36 Home Medications Home Medications Medication Instructions Recorded Confirmed Type finasteride 5 mg PO QAM 07/20/18 11/28/18 History tamsulosin 0.4 mg PO QAM 07/20/18 11/28/18 History rivaroxaban [Xarelto] 20 mg PO QAM 08/19/18 11/28/18 History Patient History Medical History Heart block, AV (Acute) First degree, several periods of third degree block (asymptomatic). cardiology following and have talked about pacemaker at a later date but deferring until treatment of gallstone completed. external pacemaker pads applied. BPH with obstruction/lower urinary tract symptoms (Chronic) Pituitary tumor (Chronic) Pituitary macroadenoma - dx in 2008 Left femoral vein DVT (Resolved) Pulmonary embolism (Resolved) GERD (gastroesophageal reflux disease) (Chronic) Dyslipidemia (Chronic) Essential hypertension (Chronic) Hypercoagulable state (Chronic) Lung nodule (Chronic) Fracture of medial malleolus, right, closed (Resolved) Fracture of multiple ribs of right side (Resolved) Fracture of right acetabulum (Resolved) Fracture of right patella (Resolved) History of bacterial pneumonia (Resolved) History of skin cancer (Resolved) Traumatic closed fracture of distal ulna with minimal displacement (Resolved) Right Surgical History History of hernia repair (Chronic) History of appendectomy (Chronic) History of femur fracture (Resolved) repaired surgically at age 15 History of hip surgery (Resolved) ORIF fracture of right acetabulum in 2017 Hx of right knee surgery (Resolved) ORIF right patella fracture Social History Preferred Language: Turkmen Communication Ability: Effective Business Manager Required: No Beliefs That Will Affect Care: None Current Living Situation: Family Current Living Situation Comment: lives w gf Other Information That Helps Us Care for You: No Feels Safe at Home: No Is there a partner from a previous relationship who is making you feel unsafe now?: No Would You Like to Speak to Someone About Your Situation: No Safety Concerns: Feels Safe At This Time Smoking Status: Never smoker Do You Dip or Chew Tobacco: No Second Hand Exposure: No Tobacco Cessation Education Requested by Patient: No Hx Alcohol Use: Yes Alcohol type: beer Hx Substance Use: No Review of Systems Review of Systems: Review of system including 14 systems as mentioned above otherwise was unremarkable. Physical Exam Physical Exam: Vital signs are stable, no fever today, 95% on room air, right IJ pacer wire in place, S1-S2 normal sinus rhythm, lungs with distant breath sounds, abdomen is benign with minimal tenderness mainly in the epigastric area, no edema. Neurologically he is intact. No skin rash. Results & Data Vital Signs (Past 12 Hours) Vital Signs Temp Pulse Pulse Resp BP BP Pulse Ox 12/01/18 15:30 70 20 94 12/01/18 15:20 70 22 94 12/01/18 15:10 82 20 95 12/01/18 15:01 58 L 16 131/62 92 12/01/18 15:00 63 17 92 12/01/18 14:50 58 L 15 92 12/01/18 14:40 59 L 17 92 12/01/18 14:30 61 16 92 12/01/18 14:20 78 18 93 12/01/18 14:10 65 17 93 12/01/18 14:02 72 16 96 12/01/18 14:01 78 18 114/65 94 12/01/18 14:00 72 19 94 12/01/18 13:50 69 20 95 12/01/18 13:40 71 21 95 12/01/18 13:30 72 17 97 12/01/18 13:20 63 20 99 12/01/18 13:10 57 L 17 95 12/01/18 13:01 69 16 140/70 95 12/01/18 13:00 66 24 95 12/01/18 12:50 58 L 16 95 12/01/18 12:40 62 17 96 12/01/18 12:30 66 97 12/01/18 12:20 62 98 12/01/18 12:10 58 L 98 12/01/18 12:01 58 L 115/62 97 12/01/18 12:00 61 14 96 12/01/18 11:50 56 L 20 96 12/01/18 11:40 61 15 98 12/01/18 11:30 61 16 97 12/01/18 11:20 61 10 L 96 12/01/18 11:10 67 9 L 97 12/01/18 11:01 67 15 123/73 95 12/01/18 11:00 63 11 L 96 12/01/18 08:00 65 12/01/18 07:46 36.4 C L 56 L 18 114/69 93 Laboratory Results Labs were reviewed and showed stable CBC, and BMP. Improvement in LFTs. Diagnostic Findings Chest x-ray showed mild emphysematous changes, no repeat. PG Care Time/CCT Total Critical Care Time: 45
--- NOTE | 2018-12-01 16:57 | Anesthesiology Consultation ---
Date of Service December 01, 2018 Assessment & Plan (1) Encounter for pre-operative examination: Chart Review Chart Review: Acceptable Risk for Surgery, Patient NOT seen in Pre Admission Testing and entry level buyer initiated Consults Requested none Additional Notes 78 yo male who underwent GA 2 days ago for ERCP. At that time he had external pads applied due to transient 3rd degree HB being observed on the monitor in ED. During the procedure, the pts HR dropped to the 20s requiring atropine and temporary external pacing. Anesthetic otherwise significant for grade 1 view with MAC 3 and atraumatic placement of 7.5 ETT. No other perioperative complications noted. The patient went today for placement of temporary transvenous pacer. Permanent pacer is being delayed until resolution of the current abdominal process. The patient is now scheduled for cholecystectomy. Patient also with PMH significant for recent pulmonary embolism (07/2018) and known pituitary tumor. History Surgery Operation Date: 11/29/18 10:00 Proposed Procedures p Endoscopic Retrograde Cholangiopancreato - Sussy Shields MD Operation Date: 12/01/18 06:40 Proposed Procedures p Cardiac Cath Procedure - Mil Joshi MD Operation Date: 12/01/18 10:30 Proposed Procedures p Endoscopic Retrograde Cholangiopancreatogram - Francois Husain MD Operation Date: 12/02/18 12:40 Proposed Procedures p Laparoscopic Cholecystectomy - Xavier Collier DO Height/Weight Height: 5 ft 11 in Weight: 73.8 kg Allergies Allergy/AdvReac Type Severity Reaction Status Date / Time No Known Allergies Allergy Unverified 11/28/18 06:36 Medications Home Medications Medication Instructions Recorded Confirmed Last Taken finasteride 5 mg PO QAM 07/20/18 11/28/18 11/27/18 tamsulosin 0.4 mg PO QAM 07/20/18 11/28/18 11/27/18 rivaroxaban [Xarelto] 20 mg PO QAM 08/19/18 11/28/18 11/27/18 Active Medications Generic Name Dose Route Start Last Admin Trade Name Freq PRN Reason Stop Dose Admin Finasteride 5 mg 11/29/18 09:00 12/01/18 11:27 Proscar PO 12/29/18 08:59 5 mg DAILY SHANDRA Administration Heparin Sodium (Porcine) 5,000 units 11/28/18 22:00 12/01/18 13:53 Heparin Sodium (Porcine) SQ 12/28/18 21:59 5,000 units Q8 SHANDRA Administration Piperacillin Sod/Tazobactam 115 mls @ 28.75 mls/hr 11/28/18 12:00 12/01/18 15:33 Sod 3.375 gm/ Dextrose IV 12/08/18 11:59 Infused Q8H SHANDRA Infusion Protocol Dextrose/Sodium Chloride 1,000 mls @ 80 mls/hr 11/28/18 12:45 12/01/18 01:59 D5w And Nss IV 12/28/18 12:44 80 mls/hr .[id number] SHANDRA Administration Ioversol 93 ml 11/28/18 09:28 11/28/18 09:29 Optiray 320 100ml IV 12/02/18 09:27 93 ml ONCE PRN Administration Interaction Checking Pantoprazole Sodium 40 mg 11/29/18 09:00 12/01/18 11:27 Protonix PO 12/29/18 08:59 40 mg DAILY SHANDRA Administration Tamsulosin HCl 0.4 mg 11/29/18 21:00 11/30/18 20:16 Flomax PO 12/29/18 20:59 0.4 mg HS HSANDRA Administration NPO Date Last Intake of Fluids: 11/28/18 Time Last Intake of Fluids: 18:00 Date Last Intake of Solids: 11/27/18 Time Last Intake of Solids: 16:00 Past Medical History Medical History Heart block, AV (Acute) First degree, several periods of third degree block (asymptomatic). cardiology following and have talked about pacemaker at a later date but deferring until treatment of gallstone completed. external pacemaker pads applied. BPH with obstruction/lower urinary tract symptoms (Chronic) Pituitary tumor (Chronic) Pituitary macroadenoma - dx in 2008 Left femoral vein DVT (Resolved) Pulmonary embolism (Resolved) GERD (gastroesophageal reflux disease) (Chronic) Dyslipidemia (Chronic) Essential hypertension (Chronic) Hypercoagulable state (Chronic) Lung nodule (Chronic) Fracture of medial malleolus, right, closed (Resolved) Fracture of multiple ribs of right side (Resolved) Fracture of right acetabulum (Resolved) Fracture of right patella (Resolved) History of bacterial pneumonia (Resolved) History of skin cancer (Resolved) Traumatic closed fracture of distal ulna with minimal displacement (Resolved) Right Past Surgical History Surgical History History of hernia repair (Chronic) History of appendectomy (Chronic) History of femur fracture (Resolved) repaired surgically at age 15 History of hip surgery (Resolved) ORIF fracture of right acetabulum in 2017 Hx of right knee surgery (Resolved) ORIF right patella fracture Social History Smoking Status: Never smoker Do You Dip or Chew Tobacco: No Hx Alcohol Use: Yes Alcohol type: beer alcohol intake frequency: 0-2 drinks per day Hx Substance Use: No substance use type: does not use Physical Exam Vital Signs Last Vital Signs Temp 36.4 C L 12/01/18 07:46 Pulse 70 12/01/18 15:30 Resp 20 12/01/18 15:30 BP 131/62 12/01/18 15:01 Pulse Ox 94 12/01/18 15:30 Testing Laboratory Results 12/01/18 06:13 12/01/18 06:13 PT 12.1 Seconds (9.0-12.0) H 11/28/18 14:00 INR 1.2 (0.9-1.1) H 11/28/18 14:00 APTT 32.5 Seconds (21.0-31.0) H 11/28/18 14:00 Hemoglobin A1c 5.1 % (4.5-5.6) 11/29/18 06:00 Urine Color Dark Yellow 11/28/18 07:00 Urine Appearance Clear (Clear) 11/28/18 07:00 Urine pH 8.5 (4.5-7.5) H 11/28/18 07:00 Ur Specific [place] 1.011 (1.000-1.030) 11/28/18 07:00 Urine Protein Negative (Negative) 11/28/18 07:00 Urine Glucose (UA) Negative (Negative) 11/28/18 07:00 Urine Ketones Negative (Negative) 11/28/18 07:00 Urine Nitrite Negative (Negative) 11/28/18 07:00 Ur Leukocyte Esterase Negative (Negative) 11/28/18 07:00 Electrocardiogram Date: 11/29/18 Findings: + NSR @ (60) Sinus rhythm with 1st degree A-V block Otherwise normal ECG When compared with ECG of 28-NOV-2018 10:42, No significant change was found Chest X-Ray Date: 11/28/18 XR chest 1V portable CLINICAL HISTORY: Acute javad pain COMPARISON STUDY: 08/19/2018 FINDINGS: Mild emphysematous change. Chronic subsegmental atelectasis left base. No acute focal infiltrate. IMPRESSION: Chronic change. No acute process. Other Testing EKG 11/30/2018 Sinus bradycardia (46) with 2nd degree A-V block (Mobitz I) Low voltage QRS, When compared with ECG of 29-NOV-2018 06:45, Sinus rhythm is now with 2nd degree A-V block (Mobitz I)
[2018-12-01] MEDS: TAMSULOSIN HCL 0.4 MG CAP PO SCH (20:50)
[2018-12-02] MEDS: PIPERACILLIN/TAZOBACTAM 3.375 GM in DEXTROSE 5% 100 ML IV SCH ×3 (04:54→20:29)
[2018-12-02 05:10] LABS: Hematocrit (blood only) 39.1 % (42-52); Hemoglobin 13.6 g/dL (14.0-18.0); Mean Corpuscular Hgb Conc 34.8 g/dL (32-36); Mean Corpuscular Volume 93.3 fL (80-100); Mean Platelet Volume 10.4 fL (7.4-10.4); Platelet Count 137 K/uL (130-400); RDW Coefficient of Variation 14.2 % (11.5-14.5); RDW Standard Deviation 48.3 fL (36.4-46.3); Red Blood Count 4.19 M/uL (4.7-6.1); White Blood Count 4.88 K/uL (4.8-10.8)
[2018-12-02 05:35] LABS: Albumin Level 2.7 gm/dl (3.4-5.0); BUN Creatinine Ratio 4.2 (10-20); Calcium 8.4 mg/dl (8.5-10.1); Creatinine Clr Calc Pharmacy 68.3 ml/min; Est GFR (African American) 93.2; Est GFR (Non-African American) 80.4; Potassium 3.4 mmol/L (3.5-5.1)
[2018-12-02 05:38] LABS: Albumin Globulin Ratio 0.9 (0.9-2); Bilirubin,Total 1.2 mg/dl (0.2-1); Globulin 2.9 gm/dl (2.5-4.0); Total Protein 5.6 gm/dl (6.4-8.2)
[2018-12-02] MEDS: HEPARIN SOD 5,000 UNIT/0.5 ML VIAL SQ SCH ×3 (06:05→22:37)
--- NOTE | 2018-12-02 06:55 | XRay Report ---
XR chest 1V portable CLINICAL HISTORY: pacemaker placement COMPARISON STUDY: 11/28/2018 FINDINGS: The heart is normal in size. There is underlying pulmonary emphysema. There are perihilar a nd basilar atelectatic changes. No pacemaker is visualized. There is no pneumothorax. There is no lob ar consolidation.[ IMPRESSION: Perihilar and basilar atelectatic changes. No lobar consolidation. No pneumothorax. Electronically signed by: Luis Tabares M.D. 12/02/2018 6:54 AM
[2018-12-02] MEDS: D5W AND NSS 1,000 ML IV SCH ×2 (08:44→18:08)
[2018-12-02] MEDS: FINASTERIDE 5 MG TAB PO SCH (08:45)
[2018-12-02] MEDS: POTASSIUM CHLORIDE / WTR 20 MEQ/100 ML PLCT IV SCH ×2 (08:45→11:39)
[2018-12-02] MEDS: PANTOprazole 40 MG TAB PO SCH (08:45)
[2018-12-02] MEDS ORDERED: POTASSIUM CHLORIDE 20 MEQ TABCR PO STA (09:49)
--- NOTE | 2018-12-02 10:02 | Hospitalist Progress Note ---
Date of Service December 02, 2018 Assessment & Plan (1) Choledocholithiasis with acute cholecystitis with obstruction: Ongoing issue for months but worsening symptoms over three days, particularly past 24 hours. Noted to have elevated LFTs (TB: 4.4, AST - 412, ALT- 379, ALP - 193 ) and mild GB wall thickening and mild pericholecystic edema on imaging - Per surgery consult early acute vs chronic cholecystitis. 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 CBD stone removal with stent placement. Plan is to remove stent in 6 weeks by GI. Hold xarelto/Anticoagulation for 5 days post ERCP and also for scheduled Lap cholecystectomy today -NPO, IVF -Empirically on IV Zosyn - Day 5 -Blood cx x 2 - not collected on admission (now on day 2 antibiotics)-no signs of sepsis/fever -GI inputs appreciate. PLAN : Lap cholecystectomy today by surgery. Present on Admission?: Yes (2) Heart block, AV: Baseline first-degree AV block but noted to have Mobitz 1 second-degree AV block and transient third-degree AV block with pauses on the monitor in ED. -S/P External pacemaker pads placed since admission ---> Transvenous Temporary pacemaker placed on 12/01/18 by Cardiology--> Transferred to ICU post temp pacemaker insertion. Eventually will need permanent pacemaker this admission. -During procedure -ERCP- had HR drop to 20s requiring atropine and external pacing. Intermittent episodes of bradycardia and blocks -Cardiology on board. Present on Admission?: Yes (3) Hypokalemia: -Replete K -Monitor K (4) Pulmonary embolism: -Jul 2018, unprovoked -Xarelto on hold for status post ERCP (for 5 days post procedure per GI) and for lap cholecystectomy -Restart as soon as able to do so - Today is POD # 3 post ERCP (5) Pituitary tumor: Last neurology evaluation appears to be in 2016 - pt denies following up for neuroendocrine tumor as recommended in last neuro note. - MRI needs to be repeated- tried to do it on admission day but with signfiicant bradycardia/high degree AV block requiring removal of pacer pads will not be able to do so,. - Discussed with dr pearson- will get MRI compatible Pacemaker. - Can be done outpatient- not urgent. - Will need to follow up outpatient (6) GERD (gastroesophageal reflux disease): Not currently taking any medication for this complaint - pt does report increasing heartburn symptoms -Started on protonix (7) BPH with obstruction/lower urinary tract symptoms: -Restart flomax and proscar DVT PROPHYLAXIS -Xarelto on hold -Heparin SQ DISPOSITION -Continue with ICU monitoring -Monitor closely on tele monitor Son was updated by bedside day before by bedside. Daughter was updated today over phone . Subjective Patient is status post transvenous pacemaker placement yesterday. Patient required wire manipulation by bedside by cardiology today AM. Still complains of mild epigastric/right upper quadrant soreness. No nausea, vomiting associated with it. No fever, chills. 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 No rales, rhonchi, crackles, wheezes heard. HEART- Regular rate and rhythm . No murmurs ABDOMEN- Soft, mild epigastric tenderness, no rigidity, guarding, bowel sounds present EXTREMITIES- Good peripheral pulses, no edema Results & Data Vital Signs (Past 12 Hours) Vital Signs Pulse Pulse Resp BP BP Pulse Ox 12/02/18 07:01 77 12 144/84 H 92 12/02/18 06:01 71 26 H 125/69 95 12/02/18 05:36 84 13 117/60 93 12/02/18 05:01 58 L 16 117/60 91 12/02/18 04:01 66 21 137/70 93 12/02/18 03:01 54 L 18 107/59 L 93 12/02/18 02:01 54 L 17 98/60 L 93 12/02/18 01:01 59 L 19 103/57 L 94 12/02/18 00:01 62 19 117/64 93 12/01/18 23:01 61 17 118/68 94 12/01/18 22:01 70 21 140/77 94 12/01/18 22:00 70 21 140/77 95 (1) Pulmonary embolism Chronicity: acute Pulmonary embolism type: unspecified (2) GERD (gastroesophageal reflux disease) Esophagitis presence: without esophagitis Qualified Code(s): K21.9 - Gastro- esophageal reflux disease without esophagitis
--- NOTE | 2018-12-02 10:20 | Operative Report ---
Post Operative Report Pre & Post Diagnosis Advanced AV block Procedure Operation Date: 11/29/18 10:00 Actual Procedures p Endoscopic Retrograde Cholangiopancreato(Not Applicable) - Sussy Shields MD Operation Date: 12/02/18 10:00 Actual Procedures p Cineradiography w/Routine Exam - Mil Joshi MD Surgeon Tesfaye Joshi MD Tool Crib Lead Kenn Estimated Blood Loss 0 Findings Consistent with Post-Op Diagnosis Specimens none Complications none Description of Procedure Patient brought back to labor relations manager to reposition temporary transvenous pacemaker under fluoroscopy. Catheter withdrawn and replaced into RV. Appropriate pacing at output down to 1 mA. Catheter secured into place. Final pacing settings: VVI 45 bpm, with output of 5mA. I attest to the content of the Intraoperative Record and any orders documented therein. Any exceptions are noted below.
--- NOTE | 2018-12-02 11:53 | Critical Care Progress Note ---
Date of Service December 02, 2018 Assessment & Plan (1) Heart block, AV: Impression: 1. Acute cholecystitis status post ERCP with retraction of cholelithiasis and stent placement. 2. High-grade AV block, status post temporary pacer wire. 3. Preop evaluation for cholecystectomy in the morning. Plan: 1. Appreciate GI, surgery and cardiology input. 2. Appreciate cardiology input, the patient has the wire readjusted under fluoroscopy. 3. Continue Zosyn for antibiotic. 4. The patient remains n.p.o. 5. Continue IV fluid. 6. Medically clear to the OR for cholecystectomy. 7. Placement of permanent pacemaker once cholecystectomy and sepsis resolved. 8. Continue DVT and GI prophylaxis. 9. Core measures for the ICU has been met. 10. Discussed with the staff on rounds and details. 11. Discussed with the patient in details, all his questions been answered. 12. Electrolyte replacement. Critical care time spent with the patient was 45 minutes. Subjective Events noted overnight, the nursing staff noted that the the pacer wire and the rhythm are not coordinated, and the wire was not capturing, in fact patient had a chest x-ray today, and lost the elbow position of the wire, likely the wire is not sensing at this point. The patient himself denies any pain, but he had discomfort due to the feeling of the output from the pacer wire. He denies any chest pain, no shortness of breath, he does have abdominal pain mainly in the right upper quadrant. Apart from the above, there was no new symptoms. Review of Systems Review of Systems: Review of systems x10 systems was unremarkable. Except for the above. Physical Exam Physical Exam: Vital signs are stable, O2 sat 94% on room air, S1-S2, regular rate and rhythm, he is in sinus rhythm rate of 70, right IJ pacer wire in place, lungs are clear, abdomen is slightly tender in the right upper quadrant, no edema, neurologically is intact, he is in good mood, capable of making decisions. Results & Data Vital Signs (Past 12 Hours) Vital Signs Pulse Resp BP Pulse Ox 12/02/18 09:30 67 17 92 12/02/18 09:20 79 23 91 12/02/18 09:10 66 22 94 12/02/18 09:01 67 15 142/74 H 97 12/02/18 09:00 66 18 98 12/02/18 08:50 81 20 96 12/02/18 08:40 70 22 92 12/02/18 08:30 73 14 96 12/02/18 08:20 63 19 92 12/02/18 08:10 63 19 92 12/02/18 08:01 65 22 125/69 94 12/02/18 08:00 69 18 92 12/02/18 07:50 72 24 95 12/02/18 07:40 70 19 91 12/02/18 07:30 67 22 92 12/02/18 07:20 70 13 94 12/02/18 07:10 72 16 95 12/02/18 07:02 76 13 94 12/02/18 07:01 77 12 144/84 H 92 12/02/18 06:01 71 26 H 125/69 95 12/02/18 05:36 84 13 117/60 93 12/02/18 05:01 58 L 16 117/60 91 12/02/18 04:01 66 21 137/70 93 12/02/18 03:01 54 L 18 107/59 L 93 12/02/18 02:01 54 L 17 98/60 L 93 12/02/18 01:01 59 L 19 103/57 L 94 12/02/18 00:01 62 19 117/64 93 Laboratory Results Labs were reviewed, slight hypokalemia, repleted. Diagnostic Findings Chest x-ray was reviewed as well showing loose wire of the temporary pacer. PG Care Time/CCT Critical Care Time: Yes Total Critical Care Time: 35
--- NOTE | 2018-12-02 12:49 | History & Physical Bridge Note ---
Date of Service December 02, 2018 History & Physical Bridge Note I have examined the patient, reviewed the History & Physical and in the interval since the performance of the History & Physical I have noted the following changes of clinical significance: no changes noted
[2018-12-02] MEDS ORDERED: BUPIVACAINE/EPINEPHRINE 0.5% MPF 1:200,000 30 ML VIAL ONE (13:19)
[2018-12-02] MEDS ORDERED: fentaNYL citrate 100 MCG/2 ML VIAL ONE ×2 (13:19→14:48)
[2018-12-02] MEDS ORDERED: LIDOCAINE/EPINEPHRINE 1% 20 ML VIAL ONE (13:24)
[2018-12-02] MEDS ORDERED: CONRAY 60% 50 ML VIAL ONE (13:24)
--- NOTE | 2018-12-02 13:27 | History & Physical Bridge Note ---
Date of Service December 02, 2018 History & Physical Bridge Note I have examined the patient, reviewed the History & Physical and in the interval since the performance of the History & Physical I have noted the following changes of clinical significance: no changes noted will proceed with lap javad,c'gram possible open r and c explained to pt permit for OR signed Supervising Physician Co-Signing Physician Notes 78 yo male admitted with abdominal pain, found to have dilated cbd and tb of 6 with leukocytosits concerning for cholangitis. Underwent ERCP on 11/29 with removal of stones, stents placed. Doing better this morning. Continue abx. Defer to surgery/cardiology on surgical plan for gallbladder pending his cardiac assessment. GI will sign off.
[2018-12-02] MEDS ORDERED: ePHEDrine sulfate 50 MG/ML SYR ONE (14:08)
[2018-12-02] MEDS ORDERED: LIDOCAINE HCL 2% 2 ML VIAL/AMP(20MG/ML) INFIL ONE (14:08)
[2018-12-02] MEDS ORDERED: GLYCOPYRROLATE 0.2 MG/ML VIAL ONE (14:08)
[2018-12-02] MEDS ORDERED: PROPOFOL IV EMULSION 10 MG/ML 20 ML VIAL IV ONE (14:08)
[2018-12-02] MEDS ORDERED: ONDANSETRON INJ 2 MG/ML 2 ML VIAL ONE (14:08)
[2018-12-02] MEDS ORDERED: ROCURONIUM BROMIDE 10 MG/ML 5 ML VIAL ONE ×2 (14:08→14:34)
[2018-12-02] MEDS ORDERED: NEOSTIGMINE METHYLSULFATE 5 MG/5 ML SYR ONE (14:08)
[2018-12-02] MEDS ORDERED: ePHEDrine sulfate 50 MG/ML AMP IV PRN (14:21)
[2018-12-02] MEDS ORDERED: fentaNYL citrate 100 MCG/2 ML VIAL IV PRN (14:21)
[2018-12-02] MEDS ORDERED: ATROPINE SULFATE 0.1 MG/ML 10ML SYR IV PRN (14:21)
--- NOTE | 2018-12-02 15:53 | Post Operative Brief Note ---
Immediate Post Op Note v1 Date of Surgery December 02, 2018 Pre & Post Diagnosis Operation Date: 11/29/18 10:00 Pre-Op Diagnosis: ACUTE CHOLEYSTITIS Post-Op Diagnosis: ACUTE CHOLEYSTITIS Operation Date: 12/01/18 06:40 <No data on this case meets the specified criteria> Operation Date: 12/01/18 10:30 <No data on this case meets the specified criteria> Operation Date: 12/02/18 09:30 Pre-Op Diagnosis: Acute Cholecystitis Post-Op Diagnosis: Acute Cholecystitis Operation Date: 12/02/18 10:00 <No data on this case meets the specified criteria> Procedure Operation Date: 11/29/18 10:00 Actual Procedures p Endoscopic Retrograde Cholangiopancreato(Not Applicable) - Sussy Shields MD Operation Date: 12/01/18 06:40 Actual Procedures p Ins/RemTemporary Transvenous Pacer - Mil Joshi MD s Cineradiography w/Routine Exam - Mil Joshi MD s Ultrasound Vascular Access - Mil Joshi MD Operation Date: 12/01/18 10:30 <No data on this case meets the specified criteria> Operation Date: 12/02/18 09:30 Actual Procedures p Laparoscopic Cholecystectomy with cholangiogram(Not Applicable) - Jorge Singh MD Operation Date: 12/02/18 10:00 Actual Procedures p Cineradiography w/Routine Exam - Mil Joshi MD Surgeon Jorge Singh MD [facility] Estimated Blood Loss 0 Findings Consistent with Post-Op Diagnosis Drains Guillermo-Carson Drain
--- NOTE | 2018-12-02 16:03 | Fluoroscopy Report ---
[place] cholangiogram OR HISTORY: Post cholecystectomy. FLUOROSCOPY TIME: 2 seconds. FINDINGS: Fluoroscopy was provided for an intraoperative cholangiogram status post cholecystectomy. C ontrast was injected through the cystic duct remnant. Common bile duct contains a stent. Possibility of several small filling defects versus air bubbles within the common duct is considered. No evidence for extravasation. Contrast extends into the small bowel. There is no intrahepatic bile duct dilatat ion. IMPRESSION: Fluoroscopy provided for an intraoperative cholangiogram status post cholecystectomy. Com mon bile duct stent in good position. Small filling defects within the common duct versus technical a ir bubble artifact. The above report was generated using voice recognition software. It may contain grammatical, syntax or spelling errors. Electronically signed by: Ronnie Oswald M.D. 12/02/2018 4:02 PM
--- NOTE | 2018-12-02 16:11 | Operative Report ---
Post Operative Report Pre & Post Diagnosis Operation Date: 11/29/18 10:00 Pre-Op Diagnosis: ACUTE CHOLEYSTITIS Post-Op Diagnosis: ACUTE CHOLEYSTITIS Operation Date: 12/01/18 06:40 <No data on this case meets the specified criteria> Operation Date: 12/01/18 10:30 <No data on this case meets the specified criteria> Operation Date: 12/02/18 09:30 Pre-Op Diagnosis: Acute Cholecystitis Post-Op Diagnosis: Acute Cholecystitis Operation Date: 12/02/18 10:00 <No data on this case meets the specified criteria> Procedure Operation Date: 11/29/18 10:00 Actual Procedures p Endoscopic Retrograde Cholangiopancreato(Not Applicable) - Sussy Shields MD Operation Date: 12/01/18 06:40 Actual Procedures p Ins/RemTemporary Transvenous Pacer - Mil Joshi MD s Cineradiography w/Routine Exam - Mil Joshi MD s Ultrasound Vascular Access - Mil Joshi MD Operation Date: 12/01/18 10:30 <No data on this case meets the specified criteria> Operation Date: 12/02/18 09:30 Actual Procedures p Laparoscopic Cholecystectomy with cholangiogram(Not Applicable) - Jorge Singh MD The patient was brought into the operating theater general endotracheal anesthesia the abdomen was prepped Betadine solution properly draped a timeout was had patient was identified small incision supraumbilically sufficient for a Veress needle CO2 insufflated followed by 5 mm trocar point of entry inspected no injury identified direct visualization with attention was turned in the right upper quadrant where we could not see the liver the omentum was draped and it significantly especially the right lobe this point an epigastric 5 mm port was placed with preemptive analgesia 1% Xylocaine 2 subcostal ports in similar fashion we move the omentum off the liver but it was strictly adherent to the gallbladder the gallbladder fundus we could barely grab it appeared to be quite thickened and hard in fact just adjacent to it immediately into the liver there was an area that I was suspicious that it may been a carcinoma of the gallbladder with extension we took a biopsy displayed area sent for frozen section and it was benign fibrosis the omentum was stuck to the gallbladder so significantly that we really had a hard time even dissecting it out with the blunt dissection and sharp dissection I was extremely concerned that this was may been a carcinoma of the gallbladder although with chronic cholecystitis long-standing could give a similar appearance there was no true plane of dissection from the omental encasing in that area so we meticulously start taken things down but we did have some bleeder right at the gallbladder edge down to the liver who some Surgicel to pack the soft finally I was able to get into the neck of the gallbladder to elevated up mostly by blunt dissection there was a posterior peritoneum on the gallbladder then dissected away bluntly in the week left pretty much intact in the liver fossa we then we are dissecting down I was able to identify what looked like the cystic duct we came in from underneath really fibrotic it was larger normal we were able then to change the 5 mm epi gastric port to a 11 mm tracking is a large clip retail pharmacy technician we used the clip proximally small opening the cystic duct was made I was hard to identify the true lumen we try to adjust the regular catheter through there like a 14 Angiocath and a 4 urethral catheter but it cannot get him enough seal there is seem to be always a leak around his we injected eventually was we identified I try to put a regular catheter balloon which still had a leak just injecting normal saline at this point I could see the junction of the cystic duct and the common bile duct therefore we had approximately half inch to an inch and length I elected at this point just to resect completely or divide the cystic duct and come back later. Once this had been performed we then continued dissecting the gallbladder off the liver which is stated was mostly by sharp dissection and bluntly pushing away the posterior peritoneum. Once we had this freed up we put an Endopouch and took it out intact through the epigastric port my attention was then turned back to the cystic duct where I was able to elevate and at this point placed the catheter insufflated and was able to get a cholangiogram which showed the biliary stent and also showed the dye to go completely into the duodenum. Also of note from the cystic duct is enclosed in the common bile duct I do not see any evidence of the biliary stent. Elected at this point suggest to remove the Cholangiocath and doubly clipped the gallbladder of the cystic duct with a 10 mm clips which required securely we will also drain it. Subhepatic suprahepatic area was suctioned out copiously we did lose about 100 cc of blood mostly venous in nature. We elected to drain the subhepatic area with a Brendan drain that was brought in and the epigastric taken out laterally splayed subhepatically right next to the cystic duct attached to skin edge with 2-0 silk individual trochars removed under direct utilization last the umbilical trocar fascial stitch 0 Vicryl was used for epigastric area [id number] the other ones Monocryl Steri-Strips applied procedure was tolerated well by the patient estimated blood loss approximately 100 cc addendum Mala JOHNSON was present throughout the procedure and help to retraction exposure and wound closure addendum this is probably 1 of the hardest gallbladders that I see in a long time as far as this chronic thickened fibrosis. Operation Date: 12/02/18 10:00 Actual Procedures p Cineradiography w/Routine Exam - Mil Joshi MD Surgeon Jorge Singh MD Finished Cigar Maker Kenn Estimated Blood Loss 0 Findings Consistent with Post-Op Diagnosis Specimens gallbladder and stones Description of Procedure merda I attest to the content of the Intraoperative Record and any orders documented therein. Any exceptions are noted below. Supervising Physician Co-Signing Physician Notes 78 yo male admitted with abdominal pain, found to have dilated cbd and tb of 6 with leukocytosits concerning for cholangitis. Underwent ERCP on 11/29 with removal of stones, stents placed. Doing better this morning. Continue abx. Defer to surgery/cardiology on surgical plan for gallbladder pending his cardiac assessment. GI will sign off.
[2018-12-02] MEDS ORDERED: SURGICEL ABSORB HEMOSTAT 2IN X 14IN TOP ONE (16:19)
--- NOTE | 2018-12-02 17:02 | Anesthesiology Progress Note ---
Date of Service December 02, 2018 Anesthesia Post Procedure Vital Signs Vital Signs: Temp Pulse Pulse Resp BP BP Pulse Ox 12/02/18 16:55 36.6 C 64 20 119/64 96 12/02/18 16:51 36.7 C 65 18 97 12/02/18 16:50 63 20 125/62 96 12/02/18 16:46 36.7 C 67 18 96 12/02/18 16:45 67 19 120/65 95 12/02/18 16:42 66 19 97 12/02/18 16:41 63 19 123/65 96 12/02/18 16:40 63 21 123/65 96 12/02/18 16:36 63 19 123/65 97 12/02/18 16:31 60 20 120/63 96 12/02/18 16:30 63 21 97 12/02/18 16:26 60 22 120/60 97 12/02/18 16:21 63 20 110/62 93 12/02/18 16:20 64 21 95 12/02/18 13:31 144/99 H 93 12/02/18 13:30 76 17 93 12/02/18 13:16 86 19 145/80 H 95 12/02/18 13:15 82 12 97 12/02/18 13:01 73 15 137/77 94 12/02/18 13:00 71 12 94 12/02/18 12:46 71 18 130/71 94 12/02/18 12:45 71 15 94 12/02/18 12:31 65 18 136/72 93 12/02/18 12:30 66 16 93 12/02/18 12:16 79 13 126/82 97 12/02/18 12:15 77 20 97 12/02/18 12:14 37.3 C 73 16 132/69 93 12/02/18 12:01 81 16 132/69 96 12/02/18 12:00 82 17 93 12/02/18 11:46 65 18 121/66 93 12/02/18 11:45 62 12 93 12/02/18 11:31 61 13 141/68 H 93 12/02/18 11:30 61 18 93 12/02/18 11:16 79 17 116/68 96 12/02/18 11:15 74 21 96 12/02/18 11:01 72 16 122/69 93 12/02/18 11:00 71 15 94 12/02/18 10:46 68 12 119/68 94 12/02/18 10:45 71 15 96 12/02/18 10:32 23 12/02/18 10:31 121/75 12/02/18 09:30 67 17 92 12/02/18 09:20 79 23 91 12/02/18 09:10 66 22 94 12/02/18 09:01 67 15 142/74 H 97 12/02/18 09:00 66 18 98 12/02/18 08:50 81 20 96 12/02/18 08:40 70 22 92 12/02/18 08:30 73 14 96 12/02/18 08:20 63 19 92 12/02/18 08:10 63 19 92 12/02/18 08:01 65 22 125/69 94 12/02/18 08:00 69 18 92 12/02/18 07:50 72 24 95 12/02/18 07:40 70 19 91 12/02/18 07:30 67 22 92 12/02/18 07:20 70 13 94 12/02/18 07:10 72 16 95 12/02/18 07:02 76 13 94 12/02/18 07:01 77 12 144/84 H 92 12/02/18 06:01 71 26 H 125/69 95 12/02/18 05:36 84 13 117/60 93 12/02/18 05:01 58 L 16 117/60 91 12/02/18 04:01 66 21 137/70 93 12/02/18 03:01 54 L 18 107/59 L 93 12/02/18 02:01 54 L 17 98/60 L 93 12/02/18 01:01 59 L 19 103/57 L 94 12/02/18 00:01 62 19 117/64 93 12/01/18 23:01 61 17 118/68 94 12/01/18 22:01 70 21 140/77 94 12/01/18 22:00 70 21 140/77 95 12/01/18 21:10 56 L 18 136/74 94 12/01/18 21:01 58 L 20 136/74 96 12/01/18 20:01 60 19 122/64 96 12/01/18 20:00 36.7 C 69 61 19 122/64 99 12/01/18 19:59 69 19 118/60 97 12/01/18 19:01 60 16 118/60 94 12/01/18 18:01 72 22 90/69 L 93 12/01/18 18:00 75 24 94 12/01/18 17:50 64 19 93 12/01/18 17:40 65 20 95 12/01/18 17:30 62 21 95 12/01/18 17:20 65 21 95 12/01/18 17:10 62 18 94 Pain Intensity Abdomen: Pain Intensity: 5 Transfer of Care Handoff Completed per policy Notes Mental Status: alert / awake / arousable Patient Amnestic to Procedure: Yes Nausea / Vomiting: adequately controlled Pain: adequately controlled Airway Patency, RR, SpO2: stable & adequate BP & HR: stable & adequate Hydration State: stable & adequate Anesthetic Complications: no major complications apparent and Pt Satisfied with anesthetic care Notes: The patient went to ICU for recovery. He is awake and stable. Dr. Alves was given report.
--- NOTE | 2018-12-02 17:46 | Cardiology Progress Note ---
Date of Service December 02, 2018 Assessment & Plan (1) Heart block, AV: Patient is an 78-year-old male without prior history of distant cardiac disease presented with ongoing difficulties with chronic abdominal pain. While in the emergency room however he did demonstrate progression of Conduction system changes with baseline first-degree AV block progressing to Mobitz 1 second-degree AV block and transient third-degree AV block with pauses. Telemetry overnight demonstrated transient 2-1 AV block but no further progression to third-degree AV block. Patient as noted above had episode of significant bradycardia during endoscopy/ERCP Suspect patient underlying chronic conduction system disease unmasked by current hospitalization and issues. Will ultimately require permanent pacemaker insertion Patient underwent successful transcutaneous pacemaker insertion in anticipation of cholecystectomy will follow with permanent pacemaker once abdominal issues have stabilized next 2 to 3 days 12/02/2018 transvenous pacemaker repositioned still functioning appropriately patient tolerated cholecystectomy. On antibiotics periprocedural. Will follow regarding timing for permanent pacemaker insertion (2) Pulmonary embolism: Event July 2018 unprovoked but prior history of extensive orthopedic injury 2016. 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 MRI compatible pacemaker indicated Subjective Patient seen and examined chart medications telemetry reviewed. Patient seen earlier today as well as currently postoperatively in the intensive care unit. Pacemaker lead repositioned early now functioning appropriately. Tolerated cholecystectomy . Complains of nausea and anorexia currently mild incisional discomfort. No chest pain or discomfort Physical Exam Constitutional: WD/WN, vitals as above Eyes: PERRL, conjunctivae normal, anicteric sclerae ENMT: external ear and nose normal, oropharynx normal Neck: trachea midline, no thyromegaly Right IJ temporary transvenous pacemaker in place without erythema Cardiovascular: Rate/Rhythm: regular rate and regular rhythm Heart Sounds: normal S1 and normal S2; no murmur and no cardiac rub Palpation: normal PMI Vessels: no JVD, no carotid bruit and no abdominal aortic bruit Extremities: no edema Gastrointestinal (Abdomen): Inspection/Auscultation: + hypoactive bowel sounds Percussion/Palpation: + abdomen tender (Mild right upper and lower quadrant); no hepatosplenomegaly Musculoskeletal: no cyanosis or clubbing, extremities motor strength 5/5 Skin: no rashes, warm and dry Results & Data Vital Signs (Past 12 Hours) Vital Signs Temp Pulse Pulse Resp BP BP Pulse Ox 06/25/19 17:10 64 12/02/18 16:55 36.6 C 64 20 119/64 96 12/02/18 16:51 36.7 C 65 18 97 12/02/18 16:50 63 20 125/62 96 12/02/18 16:46 36.7 C 67 18 96 12/02/18 16:45 67 19 120/65 95 12/02/18 16:42 66 19 97 12/02/18 16:41 63 19 123/65 96 12/02/18 16:40 63 21 123/65 96 12/02/18 16:36 63 19 123/65 97 12/02/18 16:31 60 20 120/63 96 12/02/18 16:30 63 21 97 12/02/18 16:26 60 22 120/60 97 12/02/18 16:21 63 20 110/62 93 12/02/18 16:20 64 21 95 12/02/18 13:31 144/99 H 93 12/02/18 13:30 76 17 93 12/02/18 13:16 86 19 145/80 H 95 12/02/18 13:15 82 12 97 12/02/18 13:01 73 15 137/77 94 12/02/18 13:00 71 12 94 12/02/18 12:46 71 18 130/71 94 12/02/18 12:45 71 15 94 12/02/18 12:31 65 18 136/72 93 12/02/18 12:30 66 16 93 12/02/18 12:16 79 13 126/82 97 12/02/18 12:15 77 20 97 12/02/18 12:14 37.3 C 73 16 132/69 93 12/02/18 12:01 81 16 132/69 96 12/02/18 12:00 82 17 93 12/02/18 11:46 65 18 121/66 93 12/02/18 11:45 62 12 93 12/02/18 11:31 61 13 141/68 H 93 12/02/18 11:30 61 18 93 12/02/18 11:16 79 17 116/68 96 12/02/18 11:15 74 21 96 12/02/18 11:01 72 16 122/69 93 12/02/18 11:00 71 15 94 12/02/18 10:46 68 12 119/68 94 12/02/18 10:45 71 15 96 12/02/18 10:32 23 12/02/18 10:31 121/75 12/02/18 09:30 67 17 92 12/02/18 09:20 79 23 91 12/02/18 09:10 66 22 94 12/02/18 09:01 67 15 142/74 H 97 12/02/18 09:00 66 18 98 12/02/18 08:50 81 20 96 12/02/18 08:40 70 22 92 12/02/18 08:30 73 14 96 12/02/18 08:20 63 19 92 12/02/18 08:10 63 19 92 12/02/18 08:01 65 22 125/69 94 12/02/18 08:00 69 18 92 12/02/18 07:50 72 24 95 12/02/18 07:40 70 19 91 12/02/18 07:30 67 22 92 12/02/18 07:20 70 13 94 12/02/18 07:10 72 16 95 12/02/18 07:02 76 13 94 12/02/18 07:01 77 12 144/84 H 92 12/02/18 06:01 71 26 H 125/69 95 Laboratory Results Laboratory Results - last 24 hr 12/02/18 12/02/18 12/02/18 04:41 04:41 04:41 WBC 4.88 RBC 4.19 L Hgb 13.6 L Hct 39.1 L MCV 93.3 MCH 32.5 MCHC 34.8 RDW Std Deviation 48.3 H RDW Coeff of Kal 14.2 Plt Count 137 MPV 10.4 Sodium 143 Potassium 3.4 L Chloride 112 H Carbon Dioxide 30 Anion Gap 1.0 L BUN 4 L Creatinine 0.90 Est Cr Clr Drug Dosing 68.3 Est GFR ( Amer) 93.2 Est GFR (Non-Af Amer) 80.4 BUN/Creatinine Ratio 4.2 L Glucose 94 Calcium 8.4 L Total Bilirubin 1.2 H AST 24 ALT 158 H Alkaline Phosphatase 188 H Total Protein 5.6 L Albumin 2.7 L Globulin 2.9 Albumin/Globulin Ratio 0.9 Lipase 120 (1) Pulmonary embolism Chronicity: acute Pulmonary embolism type: unspecified
[2018-12-02] MEDS: HYDROmorphone INJ 0.5 MG/0.5 ML SYR IV PRN (18:08)
[2018-12-02] MEDS: TAMSULOSIN HCL 0.4 MG CAP PO SCH (20:29)
[2018-12-03] MEDS: PIPERACILLIN/TAZOBACTAM 3.375 GM in DEXTROSE 5% 100 ML IV SCH ×3 (04:25→19:31)
[2018-12-03 04:27] LABS: Hematocrit (blood only) 37.4 % (42-52); Hemoglobin 12.6 g/dL (14.0-18.0); Mean Corpuscular Hgb Conc 33.7 g/dL (32-36); Mean Corpuscular Volume 94.4 fL (80-100); Mean Platelet Volume 9.8 fL (7.4-10.4); Platelet Count 128 K/uL (130-400); RDW Coefficient of Variation 14.4 % (11.5-14.5); RDW Standard Deviation 49.7 fL (36.4-46.3); Red Blood Count 3.96 M/uL (4.7-6.1); White Blood Count 6.08 K/uL (4.8-10.8)
[2018-12-03 04:50] LABS: BUN Creatinine Ratio 6.7 (10-20); Calcium 8.1 mg/dl (8.5-10.1); Creatinine Clr Calc Pharmacy 57.8 ml/min; Est GFR (Non-African American) 69.9; Potassium 4.1 mmol/L (3.5-5.1)
[2018-12-03] MEDS: HYDROmorphone INJ 0.5 MG/0.5 ML SYR IV PRN ×4 (04:55→20:12)
[2018-12-03] MEDS: HEPARIN SOD 5,000 UNIT/0.5 ML VIAL SQ SCH ×3 (06:08→21:11)
--- NOTE | 2018-12-03 08:11 | Anesthesiology Progress Note ---
Date of Service December 03, 2018 Anesthesia Post Procedure Vital Signs Vital Signs: Temp Pulse Pulse Resp BP BP Pulse Ox 12/03/18 07:01 70 18 95 12/03/18 07:00 70 18 123/68 95 12/03/18 06:30 72 14 103/61 92 12/03/18 06:00 68 17 114/57 L 91 12/03/18 05:30 68 16 97/60 L 93 12/03/18 05:00 68 17 123/68 95 12/03/18 04:30 70 18 109/65 96 12/03/18 04:00 66 13 123/65 95 12/03/18 03:30 66 17 113/65 96 12/03/18 03:00 68 21 124/65 95 12/03/18 02:30 66 14 105/60 94 12/03/18 02:00 74 22 115/68 96 12/03/18 01:30 69 15 123/65 93 12/03/18 01:00 75 21 121/65 94 12/03/18 00:30 68 15 119/65 95 12/03/18 00:00 71 18 116/66 95 12/02/18 23:30 66 15 112/68 96 12/02/18 23:01 71 15 96 12/02/18 23:00 70 19 108/66 96 12/02/18 22:30 64 17 111/63 95 12/02/18 22:01 73 18 94 12/02/18 22:00 65 19 112/62 94 12/02/18 21:31 74 17 93 12/02/18 21:30 70 17 98/62 L 93 12/02/18 21:01 73 17 93 12/02/18 21:00 68 15 101/58 L 92 12/02/18 20:31 71 15 93 12/02/18 20:30 71 14 97/63 L 93 12/02/18 20:01 70 17 94 12/02/18 20:00 36.5 C 73 15 110/62 95 12/02/18 19:30 88 28 H 102/69 96 12/02/18 19:01 99 H 21 95 12/02/18 19:00 99 H 21 101/69 96 12/02/18 18:31 92 H 18 94 12/02/18 18:30 99 H 22 115/72 94 12/02/18 18:01 86 21 93 12/02/18 18:00 84 22 112/67 93 12/02/18 17:31 68 18 94 12/02/18 17:30 72 18 119/67 95 12/02/18 17:10 64 12/02/18 17:05 65 19 117/64 96 12/02/18 17:01 69 18 96 12/02/18 17:00 66 18 129/66 96 12/02/18 16:56 67 21 96 12/02/18 16:55 36.6 C 64 20 119/64 96 12/02/18 16:51 36.7 C 65 18 97 12/02/18 16:50 63 20 125/62 96 12/02/18 16:46 36.7 C 67 18 96 12/02/18 16:45 67 19 120/65 95 12/02/18 16:42 66 19 97 12/02/18 16:41 63 19 123/65 96 12/02/18 16:40 63 21 123/65 96 12/02/18 16:36 63 19 123/65 97 12/02/18 16:31 60 20 120/63 96 12/02/18 16:30 63 21 97 12/02/18 16:26 60 22 120/60 97 12/02/18 16:21 63 20 110/62 93 12/02/18 16:20 64 21 95 12/02/18 13:31 144/99 H 93 12/02/18 13:30 76 17 93 12/02/18 13:16 86 19 145/80 H 95 12/02/18 13:15 82 12 97 12/02/18 13:01 73 15 137/77 94 12/02/18 13:00 71 12 94 12/02/18 12:46 71 18 130/71 94 12/02/18 12:45 71 15 94 12/02/18 12:31 65 18 136/72 93 12/02/18 12:30 66 16 93 12/02/18 12:16 79 13 126/82 97 12/02/18 12:15 77 20 97 12/02/18 12:14 37.3 C 73 16 132/69 93 12/02/18 12:01 81 16 132/69 96 12/02/18 12:00 82 17 93 06/25/19 11:46 65 18 121/66 93 12/02/18 11:45 62 12 93 12/02/18 11:31 61 13 141/68 H 93 12/02/18 11:30 61 18 93 12/02/18 11:16 79 17 116/68 96 12/02/18 11:15 74 21 96 12/02/18 11:01 72 16 122/69 93 12/02/18 11:00 71 15 94 12/02/18 10:46 68 12 119/68 94 12/02/18 10:45 71 15 96 12/02/18 10:32 23 12/02/18 10:31 121/75 12/02/18 09:30 67 17 92 12/02/18 09:20 79 23 91 12/02/18 09:10 66 22 94 12/02/18 09:01 67 15 142/74 H 97 12/02/18 09:00 66 18 98 12/02/18 08:50 81 20 96 12/02/18 08:40 70 22 92 12/02/18 08:30 73 14 96 12/02/18 08:20 63 19 92 Pain Intensity Abdomen: Pain Intensity: 0 Notes Mental Status: alert / awake / arousable and participated in evaluation Patient Amnestic to Procedure: Yes Nausea / Vomiting: adequately controlled Pain: adequately controlled Airway Patency, RR, SpO2: stable & adequate BP & HR: stable & adequate Hydration State: stable & adequate Anesthetic Complications: no major complications apparent
[2018-12-03] MEDS: FINASTERIDE 5 MG TAB PO SCH (08:29)
[2018-12-03] MEDS: PANTOprazole 40 MG TAB PO SCH (08:29)
[2018-12-03] MEDS: D5W AND NSS 1,000 ML IV SCH ×2 (08:29→18:06)
--- NOTE | 2018-12-03 14:24 | Critical Care Progress Note ---
Date of Service December 03, 2018 Assessment & Plan (1) Heart block, AV: Impression: 1. Acute cholecystitis status post ERCP with retraction of cholelithiasis and stent placement. 2. High-grade AV block, status post temporary pacer wire. Plan: 1. Appreciate GI, surgery and cardiology input. 2. Temporary pacer wire in place, patient heart rate has been maintained above than 60 throughout. 3. Continue Zosyn, for 7 days. 4. Clear liquid diet. 5. IV fluid can be discontinued since the patient take an oral. 6. Postop day 1 cholecystectomy, apparently chronic inflammatory changes noted by surgery, appreciated.. 7. Once the patient is stable, placement of permanent pacemaker. 8. Continue DVT and GI prophylaxis. 9. Core measures for the ICU has been met. 10. Discussed with the staff on rounds and details. 11. Discussed with the patient in details, all his questions been answered. 12. Electrolyte replacement. Critical care time spent with the patient was 45 minutes. Subjective Asymptomatic this a.m., he feels overall weak, minimal pain mainly in the abdomen. Understandably, he is status post cholecystectomy postop day 1. No recurrence of bradycardia and in fact he developed brief. Of SVT today. Asymptomatic from pulmonary standpoint. No chest pain. Tolerating clear liquids orally. Review of Systems Review of Systems: Review of system including 10 systems was unremarkable except for the above. Physical Exam Physical Exam: Vital signs are stable, S1-S2 regular rate and rhythm, minimal tenderness in the abdomen, lungs are clear, no edema in the periphery, neurologically is intact. Results & Data Vital Signs (Past 12 Hours) Vital Signs Temp Pulse Pulse Resp BP BP Pulse Ox 12/03/18 12:01 85 21 92 12/03/18 12:00 36.7 C 86 90 32 H 111/73 111/74 91 12/03/18 11:01 74 14 95 12/03/18 11:00 75 14 105/64 96 12/03/18 10:00 77 20 115/67 94 12/03/18 09:01 95 H 25 H 94 12/03/18 09:00 98 H 20 138/73 93 12/03/18 08:31 71 24 115/58 L 95 12/03/18 08:00 99 H 21 125/60 95 12/03/18 07:48 78 06/26/19 07:30 75 16 136/67 95 12/03/18 07:01 70 18 95 12/03/18 07:00 70 18 123/68 95 12/03/18 06:30 72 14 103/61 92 12/03/18 06:00 68 17 114/57 L 91 12/03/18 05:30 68 16 97/60 L 93 12/03/18 05:00 68 17 123/68 95 12/03/18 04:30 70 18 109/65 96 12/03/18 04:00 66 13 123/65 95 12/03/18 03:30 66 17 113/65 96 12/03/18 03:00 68 21 124/65 95 12/03/18 02:30 66 14 105/60 94 Laboratory Results No leukocytosis. Hematocrit has been stable. Platelet count also stable. BMP is stable. Diagnostic Findings No new imaging. PG Care Time/CCT Total Critical Care Time: 45
--- NOTE | 2018-12-03 14:47 | Surgery Progress Note ---
Date of Service December 03, 2018 Assessment & Plan (1) Choledocholithiasis with acute cholecystitis with obstruction: POD 1 lap javad keep JAVIER drain continue abx diet as deep seen earlier by Dr. Singh Subjective advancing diet, c/o dysuria Physical Exam Gastrointestinal (Abdomen): Inspection/Auscultation: + abdominal surgical incision (dry) and + abdominal surgical drain present (30 cc nonbilious) Results & Data Vital Signs (Past 12 Hours) Vital Signs Temp Pulse Pulse Resp BP BP Pulse Ox 12/03/18 12:01 85 21 92 12/03/18 12:00 36.7 C 86 90 32 H 111/73 111/74 91 12/03/18 11:01 74 14 95 12/03/18 11:00 75 14 105/64 96 12/03/18 10:00 77 20 115/67 94 12/03/18 09:01 95 H 25 H 94 12/03/18 09:00 98 H 20 138/73 93 12/03/18 08:31 71 24 115/58 L 95 12/03/18 08:00 99 H 21 125/60 95 12/03/18 07:48 78 12/03/18 07:30 75 16 136/67 95 12/03/18 07:01 70 18 95 12/03/18 07:00 70 18 123/68 95 12/03/18 06:30 72 14 103/61 92 12/03/18 06:00 68 17 114/57 L 91 12/03/18 05:30 68 16 97/60 L 93 12/03/18 05:00 68 17 123/68 95 12/03/18 04:30 70 18 109/65 96 12/03/18 04:00 66 13 123/65 95 12/03/18 03:30 66 17 113/65 96 12/03/18 03:00 68 21 124/65 95
--- NOTE | 2018-12-03 15:03 | Cardiology Progress Note ---
Date of Service December 03, 2018 Assessment & Plan (1) Heart block, AV: Patient is an 78-year-old male without prior history of distant cardiac disease presented with ongoing difficulties with chronic abdominal pain. While in the emergency room however he did demonstrate progression of Conduction system changes with baseline first-degree AV block progressing to Mobitz 1 second-degree AV block and transient third-degree AV block with pauses. Telemetry overnight demonstrated transient 2-1 AV block but no further progression to third-degree AV block. Patient as noted above had episode of significant bradycardia during endoscopy/ERCP Suspect patient underlying chronic conduction system disease unmasked by current hospitalization and issues. Will ultimately require permanent pacemaker insertion Patient underwent successful transcutaneous pacemaker insertion in anticipation of cholecystectomy will follow with permanent pacemaker once abdominal issues have stabilized next 2 to 3 days 12/03/2018. Patient recovering from cholecystectomy no further high degree AV block pacemaker tested this morning demonstrating normal capture down to less than 0.05 mA Tentatively plan pacemaker later this week however will be depending on clinical response. For time being we will maintain transvenous pacemaking given symptomatic and nonsymptomatic high degree AV block on presentation and during early admission (2) Pulmonary embolism: Event July 2018 unprovoked but prior history of extensive orthopedic injury 2017. Xarelto on hold Sequential boot compression devices in place (3) Abdominal pain: (4) Pituitary tumor: Will need MRI and further MRIs to evaluate and follow. MRI compatible pacemaker indicated Subjective Patient seen and examined, chart, telemetry reviewed. Feels improved this morning still with some abdominal discomfort. Able to take liquids are without nausea or vomiting. No further bradycardia arrhythmias observed pacemaker activation Physical Exam Constitutional: WD/WN, vitals as above Eyes: PERRL, conjunctivae normal, anicteric sclerae ENMT: external ear and nose normal, oropharynx normal Neck: trachea midline, no thyromegaly Transvenous pacemaker in right IJ position without surrounding erythema Cardiovascular: Rate/Rhythm: regular rate and regular rhythm Heart Sounds: normal S1 and normal S2; no murmur and no cardiac rub Palpation: normal PMI Vessels: no JVD, no carotid bruit and no abdominal aortic bruit Extremities: no edema Gastrointestinal (Abdomen): Inspection/Auscultation: + hypoactive bowel sounds Percussion/Palpation: + abdomen tender (Mild right upper and lower quadrant); no hepatosplenomegaly JAVIER drain still in place Musculoskeletal: no cyanosis or clubbing, extremities motor strength 5/5 Skin: no rashes, warm and dry Results & Data Vital Signs (Past 12 Hours) Vital Signs Temp Pulse Pulse Resp BP BP Pulse Ox 12/03/18 12:01 85 21 92 12/03/18 12:00 36.7 C 86 90 32 H 111/73 111/74 91 12/03/18 11:01 74 14 95 12/03/18 11:00 75 14 105/64 96 12/03/18 10:00 77 20 115/67 94 12/03/18 09:01 95 H 25 H 94 12/03/18 09:00 98 H 20 138/73 93 12/03/18 08:31 71 24 115/58 L 95 12/03/18 08:00 99 H 21 125/60 95 12/03/18 07:48 78 12/03/18 07:30 75 16 136/67 95 12/03/18 07:01 70 18 95 12/03/18 07:00 70 18 123/68 95 12/03/18 06:30 72 14 103/61 92 12/03/18 06:00 68 17 114/57 L 91 12/03/18 05:30 68 16 97/60 L 93 12/03/18 05:00 68 17 123/68 95 12/03/18 04:30 70 18 109/65 96 12/03/18 04:00 66 13 123/65 95 12/03/18 03:30 66 17 113/65 96 Laboratory Results Laboratory Results - last 24 hr 12/03/18 12/03/18 12/03/18 04:08 04:08 10:49 WBC 6.08 RBC 3.96 L Hgb 12.6 L Hct 37.4 L MCV 94.4 MCH 31.8 MCHC 33.7 RDW Std Deviation 49.7 H RDW Coeff of Kal 14.4 Plt Count 128 L MPV 9.8 Sodium 141 Potassium 4.1 D Chloride 109 H Carbon Dioxide 28 Anion Gap 4.0 BUN 7 Creatinine 1.01 Est Cr Clr Drug Dosing 57.8 Est GFR ( Amer) 81.0 Est GFR (Non-Af Amer) 69.9 BUN/Creatinine Ratio 6.7 L Glucose 119 H POC Glucose 128 H Calcium 8.1 L Urine Color Urine Appearance Urine pH Ur Specific [place] Urine Protein Urine Glucose (UA) Urine Ketones Urine Blood Urine Nitrite Urine Bilirubin Urine Urobilinogen Ur Leukocyte Esterase 12/03/18 14:45 WBC RBC Hgb Hct MCV MCH MCHC RDW Std Deviation RDW Coeff of Kal Plt Count MPV Sodium Potassium Chloride Carbon Dioxide Anion Gap BUN Creatinine Est Cr Clr Drug Dosing Est GFR ( Amer) Est GFR (Non-Af Amer) BUN/Creatinine Ratio Glucose POC Glucose Calcium Urine Color Pending Urine Appearance Pending Urine pH Pending Ur Specific [place] Pending Urine Protein Pending Urine Glucose (UA) Pending Urine Ketones Pending Urine Blood Pending Urine Nitrite Pending Urine Bilirubin Pending Urine Urobilinogen Pending Ur Leukocyte Esterase Pending Laboratory Results - last 24 hr 12/03/18 12/03/18 12/03/18 04:08 04:08 10:49 WBC 6.08 RBC 3.96 L Hgb 12.6 L Hct 37.4 L MCV 94.4 MCH 31.8 MCHC 33.7 RDW Std Deviation 49.7 H RDW Coeff of Kal 14.4 Plt Count 128 L MPV 9.8 Sodium 141 Potassium 4.1 D Chloride 109 H Carbon Dioxide 28 Anion Gap 4.0 BUN 7 Creatinine 1.01 Est Cr Clr Drug Dosing 57.8 Est GFR ( Amer) 81.0 Est GFR (Non-Af Amer) 69.9 BUN/Creatinine Ratio 6.7 L Glucose 119 H POC Glucose 128 H Calcium 8.1 L Urine Color Urine Appearance Urine pH Ur Specific [place] Urine Protein Urine Glucose (UA) Urine Ketones Urine Blood Urine Nitrite Urine Bilirubin Urine Urobilinogen Ur Leukocyte Esterase 12/03/18 14:45 WBC RBC Hgb Hct MCV MCH MCHC RDW Std Deviation RDW Coeff of Kal Plt Count MPV Sodium Potassium Chloride Carbon Dioxide Anion Gap BUN Creatinine Est Cr Clr Drug Dosing Est GFR ( Amer) Est GFR (Non-Af Amer) BUN/Creatinine Ratio Glucose POC Glucose Calcium Urine Color Pending Urine Appearance Pending Urine pH Pending Ur Specific [place] Pending Urine Protein Pending Urine Glucose (UA) Pending Urine Ketones Pending Urine Blood Pending Urine Nitrite Pending Urine Bilirubin Pending Urine Urobilinogen Pending Ur Leukocyte Esterase Pending (1) Pulmonary embolism Chronicity: acute Pulmonary embolism type: unspecified
[2018-12-03 15:09] LABS: Appearance Urine Clear (Clear); Bilirubin Urine Negative (Negative); Blood Urine Negative (Negative); Color Urine Yellow; Glucose Urine UA Negative (Negative); Ketones Urine Negative (Negative); Leukocyte Esterase Urine Negative (Negative); Nitrite Urine Negative (Negative); Protein Urine Negative (Negative); Specific Gravity Urine 1.009 (1.000-1.030); Urobilinogen Urine Negative (Negative); pH Urine 6.5 (4.5-7.5)
--- NOTE | 2018-12-03 15:15 | Hospitalist Progress Note ---
Date of Service December 03, 2018 Assessment & Plan (1) Choledocholithiasis with acute cholecystitis with obstruction: Ongoing issue for months but worsening symptoms over three days, particularly past 24 hours. Noted to have elevated LFTs (TB: 4.4, AST - 412, ALT- 379, ALP - 193 ) and mild GB wall thickening and mild pericholecystic edema on imaging - Per surgery consult early acute vs chronic cholecystitis. 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 CBD stone removal with stent placement. Plan is to remove stent in 6 weeks by GI. Hold Xarelto/Anticoagulation for 5 days post ERCP -S/P Lap Rocío by Dr Singh -Drain in place -Empirically on IV Zosyn - Day 6 -Blood cx x 2 - not collected on admission (now on day 2 antibiotics)-no signs of sepsis/fever Resume Post Op Care per Surgery Protocol Incentive Spirometry 10x per Hour Resume Relative Home Meds Where Appropriate Transition from IV to PO Pain control DVT Prophylaxis Per Surgery Protocol Monitor Daily Labs (2) Heart block, AV: Baseline first-degree AV block but noted to have Mobitz 1 second-degree AV block and transient third-degree AV block with pauses on the monitor in ED. -S/P External pacemaker pads placed since admission ---> Transvenous Temporary pacemaker placed on 12/01/18 by Cardiology--> Transferred to ICU post temp pacemaker insertion. Eventually will need permanent pacemaker this admission. -During procedure -ERCP- had HR drop to 20s requiring atropine and external pacing. Intermittent episodes of bradycardia and blocks -Cardiology on board. (3) Hypokalemia: -Replete K -Monitor K (4) Pulmonary embolism: -Jul 2018, unprovoked -Xarelto on hold -Restart as soon as able to do so - Today is POD # 1 Lap Rocío (5) Pituitary tumor: Last neurology evaluation appears to be in 2016 - pt denies following up for neuroendocrine tumor as recommended in last neuro note. - MRI needs to be repeated - Will need to follow up outpatient (6) GERD (gastroesophageal reflux disease): Not currently taking any medication for this complaint - pt does report increasing heartburn symptoms -Started on protonix (7) BPH with obstruction/lower urinary tract symptoms: -Restart Flomax and Proscar -Urine Retention- >750 ml on straight cath DVT PROPHYLAXIS -Xarelto on hold until 3-5 days post surgery -Heparin SQ DISPOSITION -Continue with ICU monitoring -Monitor closely on tele monitor ROS-No Headache, No Visual Changes, No Nausea, No Vomiting, No Fever, No Chills, No Neck Pain or Stiffness, No Chest Pain, No Palpitations, No SOB, No MUNROE, No Cough, No Sputum, No Wheezing, No Abdominal Pain, No Diarrhea, No Hematemesis, No Hemoptysis, No Unexpected Weight Loss, No Flank pain, No Melena, No Hematochezia, No Frequency, No Urgency, No Burning, No Hematuria, No Rashes, No Diaphoresis. Appetite is Normal Physical Exam Gen-AAO x 3, NAD, Afebrile, Drain in place, Central line R IJ Head-NCAT, EOMI, PERRLA, Anicteric Sclera, No Posterior Pharyngeal Erythema Neck-Supple, No JVD, No Thyromegaly, No Masses, No LAD, No Bruits Lungs-Clear to Auscultation Bilaterally, No Rales, No Rhonchi, No Wheezing, No Crepitus Chest-No S4, +S1, +S2, No S3, No Murmurs, No Rubs, No Gallops, No Ectopy Abdomen-Soft, Bowel Sounds Present, Tender, Non Distended, No Hepatomegaly, No Splenomegaly, No Palpable Masses, No Rebound, No Rigidity, No Guarding Musculoskeletal-Full Range of Motion Bilaterally, No CVAT Extremities-No Cyanosis, No Clubbing, No Edema Nuero-Cranial Nerves II-XII grossly intact, Motor WNL, DTRs WNL, Strength WNL, Non Focal Psych-Normal Mood Results & Data Vital Signs (Past 12 Hours) Vital Signs Temp Pulse Pulse Resp BP BP Pulse Ox 12/03/18 12:01 85 21 92 12/03/18 12:00 36.7 C 86 90 32 H 111/73 111/74 91 12/03/18 11:01 74 14 95 12/03/18 11:00 75 14 105/64 96 12/03/18 10:00 77 20 115/67 94 12/03/18 09:01 95 H 25 H 94 12/03/18 09:00 98 H 20 138/73 93 12/03/18 08:31 71 24 115/58 L 95 12/03/18 08:00 99 H 21 125/60 95 12/03/18 07:48 78 12/03/18 07:30 75 16 136/67 95 12/03/18 07:01 70 18 95 12/03/18 07:00 70 18 123/68 95 12/03/18 06:30 72 14 103/61 92 12/03/18 06:00 68 17 114/57 L 91 12/03/18 05:30 68 16 97/60 L 93 12/03/18 05:00 68 17 123/68 95 12/03/18 04:30 70 18 109/65 96 12/03/18 04:00 66 13 123/65 95 12/03/18 03:30 66 17 113/65 96 (1) Pulmonary embolism Chronicity: acute Pulmonary embolism type: unspecified (2) GERD (gastroesophageal reflux disease) Esophagitis presence: without esophagitis Qualified Code(s): K21.9 - Gastro- esophageal reflux disease without esophagitis
[2018-12-03] MEDS: TAMSULOSIN HCL 0.4 MG CAP PO SCH (19:32)
[2018-12-04] MEDS: PIPERACILLIN/TAZOBACTAM 3.375 GM in DEXTROSE 5% 100 ML IV SCH ×3 (03:57→20:23)
[2018-12-04 04:42] LABS: Hematocrit (blood only) 34.8 % (42-52); Hemoglobin 11.5 g/dL (14.0-18.0); Mean Corpuscular Volume 94.3 fL (80-100); Mean Platelet Volume 10.3 fL (7.4-10.4); Platelet Count 113 K/uL (130-400); RDW Coefficient of Variation 14.4 % (11.5-14.5); RDW Standard Deviation 49.3 fL (36.4-46.3); Red Blood Count 3.69 M/uL (4.7-6.1); White Blood Count 5.92 K/uL (4.8-10.8)
[2018-12-04 05:04] LABS: BUN Creatinine Ratio 7.2 (10-20); Creatinine Clr Calc Pharmacy 69.6 ml/min; Est GFR (African American) 95.4; Est GFR (Non-African American) 82.3; Potassium 3.5 mmol/L (3.5-5.1)
[2018-12-04] MEDS: HEPARIN SOD 5,000 UNIT/0.5 ML VIAL SQ SCH (06:05)
--- NOTE | 2018-12-04 06:50 | Surgery Progress Note ---
Date of Service December 04, 2018 Assessment & Plan (1) Choledocholithiasis with acute cholecystitis with obstruction: POD #2 s/p lap javad, c'gram discussed path with pt increase activity leave heidy in laxative tomorrow if no bm today transfer out of unit to telemetry when ok with cardiology POD 1 lap javad keep JAVIER drain continue abx diet as deep seen earlier by Dr. Singh Subjective some ruq pain, tolertaed diet, flatus but no bm Physical Exam Physical Exam: alert coherent in no distress abd neg heidy drainage serous slightly red not bilious dec amount Results & Data Vital Signs (Past 12 Hours) Vital Signs path noted Temp Pulse Resp BP Pulse Ox 12/04/18 06:00 106 H 15 95/56 L 94 12/04/18 05:00 94 H 14 101/60 93 12/04/18 04:00 36.6 C 82 17 98/57 L 95 12/04/18 03:00 90 20 97/56 L 96 12/04/18 02:00 89 15 95/54 L 95 12/04/18 01:00 84 16 90/54 L 94 12/04/18 00:00 36.7 C 85 18 90/59 L 95 12/03/18 23:00 90 16 111/61 94 12/03/18 22:00 92 H 15 96/57 L 95 12/03/18 21:00 104 H 20 96/58 L 95 12/03/18 20:00 36.7 C 96 H 22 100/61 94 12/03/18 19:00 112 H 18 106/69 92
[2018-12-04] MEDS: PANTOprazole 40 MG TAB PO SCH (07:45)
[2018-12-04] MEDS: FINASTERIDE 5 MG TAB PO SCH (07:45)
[2018-12-04] MEDS ORDERED: POTASSIUM CHLORIDE 20 MEQ TABCR PO STA (08:39)
[2018-12-04 09:28] LABS: Albumin Level 2.3 gm/dl (3.4-5.0); Bilirubin Direct 0.3 mg/dl (0-0.2); Bilirubin,Total 0.9 mg/dl (0.2-1); Total Protein 5.1 gm/dl (6.4-8.2)
[2018-12-04] MEDS ORDERED: SODIUM CHLORIDE 0.9% 1000ML 1,000 ML IV ONE (09:33)
--- NOTE | 2018-12-04 10:05 | Urology Consultation ---
Date of Consultation December 04, 2018 Assessment & Plan (1) BPH with obstruction/lower urinary tract symptoms: (2) Urinary retention: 78yo M with known BPH, developed post op retention s/p lap javad on 12/02 with successful casarez catheter insertion. Tolerating catheter well. No sign of UTI on UA. Continues on IV zosyn Plan for permanent pacer tomorrow. Continue tamsulosin and finasteride. Pt has longstanding BPH with GORMAN, CT does not reveal significant hydronephrosis. We recommend maintaining casarez catheter for 7-10days. We can arrange for outpatient nursing TOV, unless patient is planned for rehab, passive TOV can be attempted. We will arrange for outpatient followup, patient will likely benefit from outpatient cystoscopy to better assess BPH, medial lobe noted on CT. Thank you for allowing us to participate in the acute care of Mr. Palomino. Please reconsult us with additional questions/concerns or changes in patient status. History of Present Illness Reason for Consultation: urinary retention Requesting Physician: Dr. Valencia Attending Physician: Dustin Valencia DO History of Present Illness 78yo M with extensive PMHx including DVT/PE, HTN, BPH with GORMAN, and GERD was admitted to [facility] on 11/28 with complaint of worsening epigastric pain and nausea. He was diagnosed with acute cholecystitis, underwent ERCP then subsequent lap javad by Dr. Singh on 12/02. Hospitalization was further complicated by significant heart block necessitating a temporary pacemaker. He is scheduled for permanent pacemaker tomorrow. Patient is a good historian. He reports voiding spontaneously without new difficulty until procedure on 12/02. Developed post op retention, straight cathed for 750cc last evening. Casarez catheter then inserted by nursing staff without difficulty per patient. He is tolerating catheter well, draining clear yellow. UA negative, not suspicious for UTI. He was last evaluated by our service as outpatient in May 2017, on dual therapy - finasteride and tamsulosin. Planned for cystoscopy which was lost to follow up. He states his family doctor had assumed BPH med refills, he has continued to take them. Baseline frequency q1hour. Allergies Allergy/AdvReac Type Severity Reaction Status Date / Time No Known Allergies Allergy Unverified 11/28/18 06:36 Home Medications Home Medications Medication Instructions Recorded Confirmed Type finasteride 5 mg PO QAM 07/20/18 11/28/18 History tamsulosin 0.4 mg PO QAM 07/20/18 11/28/18 History rivaroxaban [Xarelto] 20 mg PO QAM 08/19/18 11/28/18 History Patient History Medical History Heart block, AV (Acute) First degree, several periods of third degree block (asymptomatic). cardiology following and have talked about pacemaker at a later date but deferring until treatment of gallstone completed. external pacemaker pads applied. BPH with obstruction/lower urinary tract symptoms (Chronic) Pituitary tumor (Chronic) Pituitary macroadenoma - dx in 2008 Left femoral vein DVT (Resolved) Pulmonary embolism (Resolved) GERD (gastroesophageal reflux disease) (Chronic) Dyslipidemia (Chronic) Essential hypertension (Chronic) Hypercoagulable state (Chronic) Lung nodule (Chronic) Fracture of medial malleolus, right, closed (Resolved) Fracture of multiple ribs of right side (Resolved) Fracture of right acetabulum (Resolved) Fracture of right patella (Resolved) History of bacterial pneumonia (Resolved) History of skin cancer (Resolved) Traumatic closed fracture of distal ulna with minimal displacement (Resolved) Right Surgical History History of hernia repair (Chronic) History of appendectomy (Chronic) History of femur fracture (Resolved) repaired surgically at age 15 History of hip surgery (Resolved) ORIF fracture of right acetabulum in 2017 Hx of right knee surgery (Resolved) ORIF right patella fracture Social History Preferred Language: Kazakh Communication Ability: Effective Beliefs That Will Affect Care: None Current Living Situation: Family Current Living Situation Comment: lives w gf Feels Safe at Home: No Is there a partner from a previous relationship who is making you feel unsafe now?: No Smoking Status: Never smoker Second Hand Exposure: No Hx Alcohol Use: Yes Alcohol type: beer Hx Substance Use: No Review of Systems Constitutional: no fever and no chills Eyes: no corrective lenses and no diplopia Ear, Nose, Mouth, Throat: no ear pain and no tinnitus Respiratory: no cough and no hemoptysis Cardiovascular: no chest pain and no dyspnea at rest Gastrointestinal: no abdominal pain, no nausea and no vomiting Genitourinary: + difficulty urinating (prior to cath insertion); no dysuria, no urinary incontinence and no flank pain Musculoskeletal: no back pain Integumentary: no acne and no rash Neurologic: no falls, no generalized weakness and no paralysis Psychiatric: no behavioral changes and no hopelessness Endocrine: no fatigue and no polydipsia Hematologic / Lymphatic: no easy bleeding Allergy / Immunological: no cough Physical Exam Constitutional: no acute distress and not ill appearing Eyes: no nystagmus ENMT: Ears: no hearing impairment and no TM abnormality Neck: trachea midline Respiratory: no respiratory distress and does not use accessory muscles supplemental O2 intact Cardiovascular: Vessels: no JVD temporary pacer through IJ intact, sensing Chest (Breasts): Chest: no mass and no pacemaker Gastrointestinal (Abdomen): Inspection/Auscultation: abdomen not distended and no abdominal edema Percussion/Palpation: abdomen soft; abdomen nontender surgical incisions covered with gauze, no active bleeding noted. Musculoskeletal: Head/Neck/Chest: normocephalic and head atraumatic Skin: no rashes and no ulcers Neurologic: CN's II-XI intact bilaterally Psychiatric: Orientation: alert and oriented x 3 Eye Contact: good eye contact Genitourinary: no CVA tenderness, no erythematous penis and no penile swelling casarez intact, no bleeding or sign of traumatic insertion at meatus. Draining clear yellow, no clots or sediment Results & Data Vital Signs (Past 12 Hours) Vital Signs Temp Pulse Resp BP Pulse Ox 12/04/18 06:00 106 H 15 95/56 L 94 12/04/18 05:00 94 H 14 101/60 93 12/04/18 04:00 36.6 C 82 17 98/57 L 95 12/04/18 03:00 90 20 97/56 L 96 12/04/18 02:00 89 15 95/54 L 95 12/04/18 01:00 84 16 90/54 L 94 12/04/18 00:00 36.7 C 85 18 90/59 L 95 12/03/18 23:00 90 16 111/61 94 Laboratory Results Laboratory Results - last 48 hr 12/03/18 12/03/18 12/03/18 04:08 04:08 10:49 WBC 6.08 RBC 3.96 L Hgb 12.6 L Hct 37.4 L MCV 94.4 MCH 31.8 MCHC 33.7 RDW Std Deviation 49.7 H RDW Coeff of Kal 14.4 Plt Count 128 L MPV 9.8 PT INR APTT PTT Ratio Sodium 141 Potassium 4.1 D Chloride 109 H Carbon Dioxide 28 Anion Gap 4.0 BUN 7 Creatinine 1.01 Est Cr Clr Drug Dosing 57.8 Est GFR ( Amer) 81.0 Est GFR (Non-Af Amer) 69.9 BUN/Creatinine Ratio 6.7 L Glucose 119 H POC Glucose 128 H Calcium 8.1 L Total Bilirubin Direct Bilirubin AST ALT Alkaline Phosphatase Total Protein Albumin Urine Color Urine Appearance Urine pH Ur Specific [place] Urine Protein Urine Glucose (UA) Urine Ketones Urine Blood Urine Nitrite Urine Bilirubin Urine Urobilinogen Ur Leukocyte Esterase 12/03/18 12/03/18 12/04/18 14:45 15:55 04:11 WBC 5.92 RBC 3.69 L Hgb 11.5 L Hct 34.8 L MCV 94.3 MCH 31.2 MCHC 33.0 RDW Std Deviation 49.3 H RDW Coeff of Kal 14.4 Plt Count 113 L MPV 10.3 PT INR APTT PTT Ratio Sodium Potassium Chloride Carbon Dioxide Anion Gap BUN Creatinine Est Cr Clr Drug Dosing Est GFR ( Amer) Est GFR (Non-Af Amer) BUN/Creatinine Ratio Glucose POC Glucose 96 Calcium Total Bilirubin Direct Bilirubin AST ALT Alkaline Phosphatase Total Protein Albumin Urine Color Yellow Urine Appearance Clear Urine pH 6.5 Ur Specific [place] 1.009 Urine Protein Negative Urine Glucose (UA) Negative Urine Ketones Negative Urine Blood Negative Urine Nitrite Negative Urine Bilirubin Negative Urine Urobilinogen Negative Ur Leukocyte Esterase Negative 12/04/18 12/04/18 12/04/18 04:11 04:11 11:19 WBC RBC Hgb Hct MCV MCH MCHC RDW Std Deviation RDW Coeff of Kal Plt Count MPV PT INR APTT PTT Ratio Sodium 141 Potassium 3.5 Chloride 110 H Carbon Dioxide 29 Anion Gap 2.0 L BUN 6 L Creatinine 0.85 Est Cr Clr Drug Dosing 69.6 Est GFR ( Amer) 95.4 Est GFR (Non-Af Amer) 82.3 BUN/Creatinine Ratio 7.2 L Glucose 91 POC Glucose 108 H Calcium 8.0 L Total Bilirubin 0.9 Direct Bilirubin 0.3 H AST 17 ALT 87 H Alkaline Phosphatase 118 H Total Protein 5.1 L Albumin 2.3 L Urine Color Urine Appearance Urine pH Ur Specific [place] Urine Protein Urine Glucose (UA) Urine Ketones Urine Blood Urine Nitrite Urine Bilirubin Urine Urobilinogen Ur Leukocyte Esterase 12/04/18 11:44 WBC RBC Hgb Hct MCV MCH MCHC RDW Std Deviation RDW Coeff of Kal Plt Count MPV PT 10.9 INR 1.1 APTT 48.0 H* PTT Ratio 1.8 Sodium Potassium Chloride Carbon Dioxide Anion Gap BUN Creatinine Est Cr Clr Drug Dosing Est GFR ( Amer) Est GFR (Non-Af Amer) BUN/Creatinine Ratio Glucose POC Glucose Calcium Total Bilirubin Direct Bilirubin AST ALT Alkaline Phosphatase Total Protein Albumin Urine Color Urine Appearance Urine pH Ur Specific [place] Urine Protein Urine Glucose (UA) Urine Ketones Urine Blood Urine Nitrite Urine Bilirubin Urine Urobilinogen Ur Leukocyte Esterase
[2018-12-04] MEDS ORDERED: MAGNESIUM CITRATE 296 ML/BTL PO STA (10:58)
[2018-12-04] MEDS ORDERED: MAGNESIUM CITRATE 296 ML/BTL PO PRN (10:59)
--- NOTE | 2018-12-04 11:03 | Critical Care Progress Note ---
Date of Service December 04, 2018 Assessment & Plan (1) Heart block, AV: Impression: 1. Granulomatous cholecystitis status post ERCP with retraction of cholelithiasis, status post cholecystectomy. Adenoma of the cystic bile duct. 2. High-grade AV block, status post temporary pacer wire. 3. Urinary retention secondary to BPH. 4. Hypotension, due to poor oral intake. Plan: 1. Appreciate Dr. Singh input. 2. Temporary pacer wire in place, few episodes of bradycardia where the t emporary pacer wire was firing. 3. Continue Zosyn, for 7 days, last dose on 12/05.. 4. Advance diet . 5. IV fluid boluses for blood pressure support. 6. Pain is well controlled with Dilaudid as needed. 7. Permanent pacemaker placement once appropriate, appreciate Dr. Alarcon input. 8. Continue DVT and GI prophylaxis. 9. Restart heparin drip, okay with surgery, patient has a history of PE 4 mon ths ago. He was on Eliquis. 10. Repeat LFT did not show any rise in the enzymes. 11. consult prior to discharge for evaluation of urine retention. Discussed with the staff on rounds in details. Critical care time spent with the patient was 45 minutes. Subjective The patient denies any pain, no nausea or vomiting, he did not have any bowel m ovement, he does have urinary retention requiring straight cath and now he had a Hernandez catheter in place, one episode of soft blood pressure requiring 1 L of normal saline bolus. Bladder scan was showing over 700 mL urinary retention. Review of Systems Review of Systems: Apart from the above, 10 systems has been reviewed, review of system otherwise was unremarkable. Physical Exam Physical Exam: Elderly gentleman, does not appear to be in any distress, O2 saturation 93% on nasal cannula, vital signs are stable, right IJ pacer wire in place, distant breath sounds, S1-S2, abdomen is mild tenderness in the right upper quadrant, [place] in place, no edema, neurologically nonfocal, following commands and alert and oriented. Results & Data Vital Signs (Past 12 Hours) Vital Signs Temp Pulse Pulse Resp BP BP Pulse Ox 12/04/18 08:00 36.6 C 113 H 24 93/60 L 94 12/04/18 06:00 106 H 15 95/56 L 94 12/04/18 05:00 94 H 14 101/60 93 12/04/18 04:00 36.6 C 82 17 98/57 L 95 12/04/18 03:00 90 20 97/56 L 96 12/04/18 02:00 89 15 95/54 L 95 12/04/18 01:00 84 16 90/54 L 94 12/04/18 00:00 36.7 C 85 18 90/59 L 95 12/03/18 23:00 90 16 111/61 94 Laboratory Results Labs were reviewed, no leukocytosis, stable hematocrit, BMP also is stable. Repeat LFTs showed trending down. Diagnostic Findings No new imaging, pathology report showed bile duct adenoma, granulomatous cholecystitis. PG Care Time/CCT Critical Care Time: Yes Total Critical Care Time: 45
[2018-12-04] MEDS ORDERED: Heparin Adult LOW DOSE Wt-Based Dextrose 5% 25,000 units/500 mL IV SCH (11:30)
[2018-12-04] MEDS: Heparin IV Low Dose *NO* Bolus IV SCH (11:33)
[2018-12-04 12:17] LABS: INR 1.1 (0.9-1.1); Partial Thromboplastin Ratio 1.8; Prothrombin Time 10.9 Seconds (9.0-12.0)
--- NOTE | 2018-12-04 13:04 | Cardiology Progress Note ---
Date of Service December 04, 2018 Assessment & Plan (1) Heart block, AV: Patient is an 78-year-old male without prior history of distant cardiac disease presented with ongoing difficulties with chronic abdominal pain. While in the emergency room however he did demonstrate progression of Conduction system changes with baseline first-degree AV block progressing to Mobitz 1 second-degree AV block and transient third-degree AV block with pauses. Telemetry overnight demonstrated transient 2-1 AV block but no further progression to third-degree AV block. Patient as noted above had episode of significant bradycardia during endoscopy/ERCP Suspect patient underlying chronic conduction system disease unmasked by current hospitalization and issues. Will ultimately require permanent pacemaker insertion Patient underwent successful transcutaneous pacemaker insertion in anticipation of cholecystectomy will follow with permanent pacemaker once abdominal issues have stabilized next 2 to 3 days 12/03/2018. Patient recovering from cholecystectomy no further high degree AV block pacemaker tested this morning demonstrating normal capture down to less than 0.05 mA Tentatively plan pacemaker later this week however will be depending on clinical response. For time being we will maintain transvenous pacemaking given symptomatic and nonsymptomatic high degree AV block on presentation and during early admission suspect given slow progression post abdominal surgery will require delaying pacemaker early next week. Patient will need to remain in ICU due to temporary transvenous pacer in place. Transient bradycardia and pacing precludes its removal (2) Pulmonary embolism: Event July 2018 unprovoked but prior history of extensive orthopedic injury 2017. Xarelto on hold Sequential boot compression devices in place (3) Abdominal pain: (4) Pituitary tumor: Will need MRI and further MRIs to evaluate and follow. MRI compatible pacemaker indicated Subjective No acute discomfort. Complains of a need to move his bowels. Heart rates have trended slightly higher today but improving after fluids. No chest pain or discomfort no hypoxia. Does use pacemaker on intermittent basis with pacemaker function appropriate Physical Exam Constitutional: WD/WN, vitals as above Eyes: PERRL, conjunctivae normal, anicteric sclerae ENMT: external ear and nose normal, oropharynx normal Neck: trachea midline, no thyromegaly Pacemaker and right IJ position. No surrounding irritation or hematoma Cardiovascular: Rate/Rhythm: regular rate and regular rhythm Heart Sounds: normal S1 and normal S2; no murmur and no cardiac rub Palpation: normal PMI Vessels: no JVD, no carotid bruit and no abdominal aortic bruit Extremities: no edema Gastrointestinal (Abdomen): Inspection/Auscultation: + hypoactive bowel sounds Percussion/Palpation: + abdomen tender (Mild right upper and lower quadrant); no hepatosplenomegaly Musculoskeletal: no cyanosis or clubbing, extremities motor strength 5/5 Skin: no rashes, warm and dry Results & Data Vital Signs (Past 12 Hours) Vital Signs Temp Pulse Pulse Resp BP BP Pulse Ox 12/04/18 12:01 89 20 95 12/04/18 12:00 36.6 C 89 83 17 106/66 106/66 96 12/04/18 11:31 95 H 23 89 L 12/04/18 11:30 100 H 18 114/65 95 12/04/18 11:01 79 18 94 12/04/18 11:00 84 20 101/58 L 94 12/04/18 10:31 79 18 95 12/04/18 10:30 68 20 103/65 95 12/04/18 10:15 83 17 95/59 L 93 12/04/18 10:11 88 19 94/55 L 93 12/04/18 10:00 83 16 84/49 L 94 12/04/18 09:45 96 H 18 102/61 92 12/04/18 09:31 96 H 17 93 12/04/18 09:30 98 H 17 96/59 L 93 12/04/18 09:15 107 H 22 101/64 93 12/04/18 09:01 106 H 19 91 12/04/18 09:00 107 H 19 107/59 L 93 12/04/18 08:45 89 17 90/53 L 92 12/04/18 08:40 88 19 84/53 L 93 12/04/18 08:31 93 H 22 94 12/04/18 08:30 89 23 75/54 L 93 12/04/18 08:21 97 H 33 H 84/53 L 94 12/04/18 08:19 99 H 27 H 74/48 L 93 12/04/18 08:01 98 H 14 94 12/04/18 08:00 36.6 C 104 H 113 H 12 89/54 L 93/60 L 93 12/04/18 07:30 114 H 19 93 12/04/18 07:01 80 18 96 12/04/18 07:00 83 19 93/60 L 94 12/04/18 06:00 106 H 15 95/56 L 94 12/04/18 05:00 94 H 14 101/60 93 12/04/18 04:00 36.6 C 82 17 98/57 L 95 12/04/18 03:00 90 20 97/56 L 96 12/04/18 02:00 89 15 95/54 L 95 Laboratory Results Laboratory Results - last 24 hr 12/03/18 12/03/18 12/04/18 14:45 15:55 04:11 WBC 5.92 RBC 3.69 L Hgb 11.5 L Hct 34.8 L MCV 94.3 MCH 31.2 MCHC 33.0 RDW Std Deviation 49.3 H RDW Coeff of Kal 14.4 Plt Count 113 L MPV 10.3 PT INR APTT PTT Ratio Sodium Potassium Chloride Carbon Dioxide Anion Gap BUN Creatinine Est Cr Clr Drug Dosing Est GFR ( Amer) Est GFR (Non-Af Amer) BUN/Creatinine Ratio Glucose POC Glucose 96 Calcium Total Bilirubin Direct Bilirubin AST ALT Alkaline Phosphatase Total Protein Albumin Urine Color Yellow Urine Appearance Clear Urine pH 6.5 Ur Specific [place] 1.009 Urine Protein Negative Urine Glucose (UA) Negative Urine Ketones Negative Urine Blood Negative Urine Nitrite Negative Urine Bilirubin Negative Urine Urobilinogen Negative Ur Leukocyte Esterase Negative 12/04/18 12/04/18 12/04/18 04:11 04:11 11:19 WBC RBC Hgb Hct MCV MCH MCHC RDW Std Deviation RDW Coeff of Kal Plt Count MPV PT INR APTT PTT Ratio Sodium 141 Potassium 3.5 Chloride 110 H Carbon Dioxide 29 Anion Gap 2.0 L BUN 6 L Creatinine 0.85 Est Cr Clr Drug Dosing 69.6 Est GFR ( Amer) 95.4 Est GFR (Non-Af Amer) 82.3 BUN/Creatinine Ratio 7.2 L Glucose 91 POC Glucose 108 H Calcium 8.0 L Total Bilirubin 0.9 Direct Bilirubin 0.3 H AST 17 ALT 87 H Alkaline Phosphatase 118 H Total Protein 5.1 L Albumin 2.3 L Urine Color Urine Appearance Urine pH Ur Specific [place] Urine Protein Urine Glucose (UA) Urine Ketones Urine Blood Urine Nitrite Urine Bilirubin Urine Urobilinogen Ur Leukocyte Esterase 12/04/18 11:44 WBC RBC Hgb Hct MCV MCH MCHC RDW Std Deviation RDW Coeff of Kal Plt Count MPV PT Pending INR Pending APTT Pending PTT Ratio Pending Sodium Potassium Chloride Carbon Dioxide Anion Gap BUN Creatinine Est Cr Clr Drug Dosing Est GFR ( Amer) Est GFR (Non-Af Amer) BUN/Creatinine Ratio Glucose POC Glucose Calcium Total Bilirubin Direct Bilirubin AST ALT Alkaline Phosphatase Total Protein Albumin Urine Color Urine Appearance Urine pH Ur Specific [place] Urine Protein Urine Glucose (UA) Urine Ketones Urine Blood Urine Nitrite Urine Bilirubin Urine Urobilinogen Ur Leukocyte Esterase (1) Pulmonary embolism Chronicity: acute Pulmonary embolism type: unspecified
[2018-12-04] MEDS ORDERED: POTASSIUM CHLORIDE 10 MEQ TABCR PO ONE (13:07)
[2018-12-04 20:09] LABS: Partial Thromboplastin Ratio 3.9
[2018-12-04 20:13] LABS: Partial Thromboplastin Time 106.5 Seconds (21.0-31.0)
[2018-12-04] MEDS: TAMSULOSIN HCL 0.4 MG CAP PO SCH (20:23)
[2018-12-05] MEDS: PIPERACILLIN/TAZOBACTAM 3.375 GM in DEXTROSE 5% 100 ML IV SCH (03:22)
[2018-12-05 03:36] LABS: Basophils # (auto) 0.07 K/uL (0-0.2); Basophils % (auto) 1.2 %; Eosinophils # (auto) 0.57 K/uL (0-0.5); Eosinophils % (auto) 9.4 %; Hematocrit (blood only) 32.8 % (42-52); Hemoglobin 11.2 g/dL (14.0-18.0); Immature Granulocytes # (auto) 0.02 K/uL (0.00-0.02); Immature Granulocytes % (auto) 0.3 %; Lymphocytes # (auto) 1.53 K/uL (1.2-3.4); Lymphocytes % (auto) 25.2 %; Mean Corpuscular Hgb Conc 34.1 g/dL (32-36); Mean Corpuscular Volume 94.3 fL (80-100); Mean Platelet Volume 9.5 fL (7.4-10.4); Monocytes # (auto) 0.55 K/uL (0.11-0.59); Monocytes % (auto) 9.1 %; Neutrophils # (auto) 3.33 K/uL (1.4-6.5); Neutrophils % (auto) 54.8 %; Platelet Count 114 K/uL (130-400); RDW Coefficient of Variation 14.7 % (11.5-14.5); RDW Standard Deviation 50.2 fL (36.4-46.3); Red Blood Count 3.48 M/uL (4.7-6.1); White Blood Count 6.07 K/uL (4.8-10.8)
[2018-12-05 03:52] LABS: Albumin Level 2.3 gm/dl (3.4-5.0); BUN Creatinine Ratio 10.5 (10-20); Calcium 8.3 mg/dl (8.5-10.1); Creatinine Clr Calc Pharmacy 70.6 ml/min; Est GFR (African American) 95.8; Est GFR (Non-African American) 82.7; Potassium 3.9 mmol/L (3.5-5.1)
[2018-12-05 03:54] LABS: Partial Thromboplastin Ratio 2.5
[2018-12-05 03:55] LABS: Albumin Globulin Ratio 0.8 (0.9-2); Bilirubin,Total 0.8 mg/dl (0.2-1); Globulin 2.9 gm/dl (2.5-4.0); Total Protein 5.2 gm/dl (6.4-8.2)
[2018-12-05 04:10] LABS: Partial Thromboplastin Time 67.8 Seconds (21.0-31.0)
--- NOTE | 2018-12-05 06:46 | Hospitalist Progress Note ---
Date of Service December 05, 2018 Assessment & Plan (1) Choledocholithiasis with acute cholecystitis with obstruction: Ongoing issue for months but worsening symptoms over three days [employer], particularly last 24 hours. Noted to have elevated LFTs (TB: 4.4, AST - 412, ALT- 379, ALP - 193 ) and mild GB wall thickening and mild pericholecystic edema on imaging - Per surgery consult early acute vs chronic cholecystitis. 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 CBD stone removal with stent placement. Hold Xarelto/Anticoagulation for 5 days post ERCP -S/P Lap Rocío by Dr Singh -Drain in place -Empirically on IV Zosyn - DC today -Blood cx x 2 - not collected on admission (now on day 2 antibiotics)-no signs of sepsis/fever Resume Post Op Care per Surgery Protocol Incentive Spirometry 10x per Hour Resume Relative Home Meds Where Appropriate Transition to PO Pain control DVT Prophylaxis Per Surgery Protocol Monitor Daily Labs (2) Heart block, AV: Baseline first-degree AV block but noted to have Mobitz 1 second-degree AV block and transient third-degree AV block with pauses on the monitor in ED. -S/P External pacemaker pads placed since admission ---> Transvenous Temporary pacemaker placed on 12/01/18 by Cardiology--> Transferred to ICU post temp pacemaker insertion. Permanent pacemaker MRI Compatible today. -During procedure -ERCP- had HR drop to 20s requiring atropine and external pacing. Intermittent episodes of bradycardia and blocks -Cardiology and EP on board. (3) Hypokalemia: -Monitor K (4) Pulmonary embolism: -Jul 2018, unprovoked -Xarelto on hold, restart when OK c EP (5) Pituitary tumor: Last neurology evaluation appears to be in 2016 - pt denies following up for neuroendocrine tumor as recommended in last neuro note. - MRI needs to be repeated - Will need to follow up outpatient (6) GERD (gastroesophageal reflux disease): Not currently taking any medication for this complaint - pt does report increasing heartburn symptoms -Started on protonix (7) BPH with obstruction/lower urinary tract symptoms: -Restart Flomax and Proscar -Urine Retention- >750 ml on straight cath DVT PROPHYLAXIS -Xarelto on hold, SCDs -Heparin SQ on hold DISPOSITION -Tele soon DC tomorrow planned Labs reviewed ROS-No Headache, No Visual Changes, No Nausea, No Vomiting, No Fever, No Chills, No Neck Pain or Stiffness, No Chest Pain, No Palpitations, No SOB, No MUNROE, No Cough, No Sputum, No Wheezing, No Abdominal Pain, No Diarrhea, No Hematemesis, No Hemoptysis, No Unexpected Weight Loss, No Flank pain, No Melena, No Hematochezia, No Frequency, No Urgency, No Burning, No Hematuria, No Rashes, No Diaphoresis. Appetite is Normal Physical Exam Gen-AAO x 3, NAD, Afebrile, Drain in place, Central line R IJ Head-NCAT, EOMI, PERRLA, Anicteric Sclera, No Posterior Pharyngeal Erythema Neck-Supple, No JVD, No Thyromegaly, No Masses, No LAD, No Bruits Lungs-Clear to Auscultation Bilaterally, No Rales, No Rhonchi, No Wheezing, No Crepitus Chest-No S4, +S1, +S2, No S3, No Murmurs, No Rubs, No Gallops, No Ectopy Abdomen-Soft, Bowel Sounds Present, Tender, Non Distended, No Hepatomegaly, No Splenomegaly, No Palpable Masses, No Rebound, No Rigidity, No Guarding Musculoskeletal-Full Range of Motion Bilaterally, No CVAT Extremities-No Cyanosis, No Clubbing, No Edema Nuero-Cranial Nerves II-XII grossly intact, Motor WNL, DTRs WNL, Strength WNL, Non Focal Psych-Normal Mood Results & Data Vital Signs (Past 12 Hours) Vital Signs Temp Pulse Resp BP Pulse Ox 12/05/18 06:00 66 18 94/53 L 95 12/05/18 05:00 92 H 16 110/60 93 12/05/18 04:00 36.3 C L 67 15 93/50 L 93 12/05/18 03:00 75 18 106/59 L 94 12/05/18 02:00 72 15 96/55 L 93 12/05/18 01:00 79 17 98/58 L 93 12/05/18 00:00 36.9 C 79 17 99/54 L 92 12/04/18 23:00 81 21 89/61 L 93 12/04/18 22:00 83 19 119/64 93 12/04/18 21:00 76 15 101/55 L 95 12/04/18 20:00 36.9 C 85 16 100/59 L 94 12/04/18 19:00 74 14 104/56 L 94 (1) Pulmonary embolism Chronicity: acute Pulmonary embolism type: unspecified (2) GERD (gastroesophageal reflux disease) Esophagitis presence: without esophagitis Qualified Code(s): K21.9 - Gastro- esophageal reflux disease without esophagitis
--- NOTE | 2018-12-05 08:24 | Surgery Progress Note ---
Date of Service December 05, 2018 Assessment & Plan (1) Choledocholithiasis with acute cholecystitis with obstruction: POD 3 s/p lap javad, c'gram heidy drain removed seen with Dr. Singh ok to transfer out of unit to telemetry Subjective not had BM otherwise no complaints Physical Exam Gastrointestinal (Abdomen): Inspection/Auscultation: + abdominal surgical incision (clean, dry) and + abdominal surgical drain present (10 cc overnight); abdomen not distended Percussion/Palpation: abdomen soft Results & Data Vital Signs (Past 12 Hours) Vital Signs Temp Pulse Resp BP Pulse Ox 12/05/18 06:00 66 18 94/53 L 95 12/05/18 05:00 92 H 16 110/60 93 12/05/18 04:00 36.3 C L 67 15 93/50 L 93 12/05/18 03:00 75 18 106/59 L 94 12/05/18 02:00 72 15 96/55 L 93 12/05/18 01:00 79 17 98/58 L 93 12/05/18 00:00 36.9 C 79 17 99/54 L 92 12/04/18 23:00 81 21 89/61 L 93 12/04/18 22:00 83 19 119/64 93 12/04/18 21:00 76 15 101/55 L 95
[2018-12-05] MEDS ORDERED: BISACODYL 10 MG SUPP PR STA (08:42)
[2018-12-05] MEDS ORDERED: LACTULOSE SYRUP 30 GM/45 ML UDP PO ONE (09:15)
[2018-12-05] MEDS: PANTOprazole 40 MG TAB PO SCH (09:21)
[2018-12-05] MEDS: FINASTERIDE 5 MG TAB PO SCH (09:21)
--- NOTE | 2018-12-05 10:40 | Cardiology Progress Note ---
Date of Service December 05, 2018 Assessment & Plan (1) Heart block, AV: Patient is an 78-year-old male without prior history of distant cardiac disease presented with ongoing difficulties with chronic abdominal pain. While in the emergency room however he did demonstrate progression of Conduction system changes with baseline first-degree AV block progressing to Mobitz 1 second-degree AV block and transient third-degree AV block with pauses. Telemetry overnight demonstrated transient 2-1 AV block but no further progression to third-degree AV block. Patient as noted above had episode of significant bradycardia during endoscopy/ERCP Suspect patient underlying chronic conduction system disease unmasked by current hospitalization and issues. Will ultimately require permanent pacemaker insertion Anticipate permanent pacemaker later today patient n.p.o. (2) Pulmonary embolism: Event July 2018 unprovoked but prior history of extensive orthopedic injury 2016. Xarelto on hold Sequential boot compression devices in place Patient on IV heparin will likely re-transition back to Xarelto after pacemaker placed (3) Abdominal pain: (4) Pituitary tumor: Will need MRI and further MRIs to evaluate and follow. MRI compatible pacemaker indicated Subjective Patient feels improved this morning. No abdominal pain. Urinary retention treated with urinary catheter. JAVIER drain removed this morning. No fevers or chills. Did transiently use transvenous pacemaker once again last evening for high degree AV block Physical Exam Constitutional: WD/WN, vitals as above Eyes: PERRL, conjunctivae normal, anicteric sclerae ENMT: external ear and nose normal, oropharynx normal Neck: trachea midline, no thyromegaly Temporary pacemaker present in right IJ no surrounding erythema hematoma Cardiovascular: Rate/Rhythm: regular rate and regular rhythm Heart Sounds: normal S1 and normal S2; no murmur and no cardiac rub Palpation: normal PMI Vessels: no JVD, no carotid bruit and no abdominal aortic bruit Extremities: no edema Gastrointestinal (Abdomen): Percussion/Palpation: abdomen soft; abdomen nontender and no hepatosplenomegaly Musculoskeletal: no cyanosis or clubbing, extremities motor strength 5/5 Skin: no rashes, warm and dry Results & Data Vital Signs (Past 12 Hours) Vital Signs Temp Pulse Resp BP Pulse Ox 12/05/18 10:00 84 17 110/63 93 12/05/18 09:00 72 22 102/58 L 91 12/05/18 08:00 36.8 C 94 H 16 124/68 91 12/05/18 07:00 96 H 16 107/62 92 12/05/18 06:00 66 18 94/53 L 95 12/05/18 05:00 92 H 16 110/60 93 12/05/18 04:00 36.3 C L 67 15 93/50 L 93 12/05/18 03:00 75 18 106/59 L 94 12/05/18 02:00 72 15 96/55 L 93 12/05/18 01:00 79 17 98/58 L 93 12/05/18 00:00 36.9 C 79 17 99/54 L 92 12/04/18 23:00 81 21 89/61 L 93 (1) Pulmonary embolism Chronicity: acute Pulmonary embolism type: unspecified
--- NOTE | 2018-12-05 14:03 | Critical Care Progress Note ---
Date of Service December 05, 2018 Assessment & Plan (1) Heart block, AV: Impression: 1. Granulomatous cholecystitis status post ERCP with retraction of cholelithiasis, status post cholecystectomy. Adenoma of the cystic bile duct. 2. High-grade AV block, status post temporary pacer wire. 3. Urinary retention secondary to BPH. 4. Hypotension, due to poor oral intake. Plan: 1. Appreciate Dr. Singh input. 2. Temporary pacer wire in place, few episodes of bradycardia where the t emporary pacer wire was firing. Appreciate cardiology input. 3. Continue Zosyn, for 7 days, last dose on 12/05.. 4. Hold oral intake until pacemaker placed, tentatively today. 5. IV fluid boluses for blood pressure support. 6. Pain is well controlled with Dilaudid as needed. 7. Hold heparin 2 hours prior to pacemaker placement. 8. Once agreed by cardiology, we will restart the heparin drip for PE, diagnosed in July 2018. 9. JAVIER was removed by surgery, appreciated. 10. Discussed with Dr. Valencia, if the patient is stable and it is okay with cardiology, will transfer the patient to PCU after pacemaker placement. 11. consult appreciated for urinary retention. Discussed with the staff on rounds in details. Critical care time spent with the patient was 45 minutes. Subjective Asymptomatic since yesterday, no events occurred overnight, he did have on 2 occasions episodes of bradycardia where his temporary pacer wire kicked in it was asymptomatic. Continues to have urinary retention requiring Hernandez catheter. Constipated for several days. No new symptoms. Review of Systems Review of Systems: Review of system including 14 systems has been done, unremarkable except for the above. Physical Exam Physical Exam: Vital signs remained stable, S1-S2, regular rate and rhythm, lungs are clear, right IJ site well-maintained, abdomen is slight tenderness mainly in the right upper quadrant, no edema. No skin rash, neurologically is intact. Results & Data Vital Signs (Past 12 Hours) Vital Signs Temp Pulse Resp BP Pulse Ox 12/05/18 13:00 89 27 H 109/62 96 12/05/18 12:00 36.6 C 88 16 115/68 94 12/05/18 11:00 72 16 121/64 95 12/05/18 10:00 84 17 110/63 93 12/05/18 09:00 72 22 102/58 L 91 12/05/18 08:00 36.8 C 94 H 16 124/68 91 12/05/18 07:00 96 H 16 107/62 92 12/05/18 06:00 66 18 94/53 L 95 12/05/18 05:00 92 H 16 110/60 93 12/05/18 04:00 36.3 C L 67 15 93/50 L 93 12/05/18 03:00 75 18 106/59 L 94 12/05/18 02:00 72 15 96/55 L 93 Laboratory Results CBC is stable, BMP is stable, PTT is 53. Diagnostic Findings No new imaging. PG Care Time/CCT Critical Care Time: Yes Total Critical Care Time: 45
[2018-12-05] MEDS ORDERED: Nursing to Pharmacy Communication ONE (14:36)
[2018-12-05] MEDS ORDERED: LIDOCAINE HCL 1% 20 ML VIAL ONE (15:35)
[2018-12-05] MEDS ORDERED: BUPIVACAINE 0.25% 30 ML VIAL ONE (15:35)
[2018-12-05] MEDS ORDERED: BACITRACIN INJ 50,000 UNIT VIAL ONE (15:35)
[2018-12-05] MEDS ORDERED: MIDAZOLAM HCL 5 MG/ML 1 ML VIAL ONE (15:48)
[2018-12-05] MEDS ORDERED: fentaNYL citrate 100 MCG/2 ML VIAL ONE (15:48)
[2018-12-05] MEDS ORDERED: CEFAZOLIN 250 MG/ML 1 GM VIAL ONE (15:48)
--- NOTE | 2018-12-05 16:55 | Operative Report ---
Post Operative Report Pre & Post Diagnosis Intermittent CHB Operation Date: 11/29/18 10:00 Pre-Op Diagnosis: ACUTE CHOLEYSTITIS Post-Op Diagnosis: ACUTE CHOLEYSTITIS Operation Date: 12/01/18 06:40 <No data on this case meets the specified criteria> Operation Date: 12/01/18 10:30 <No data on this case meets the specified criteria> Operation Date: 12/02/18 09:30 Pre-Op Diagnosis: Acute Cholecystitis Post-Op Diagnosis: Acute Cholecystitis Operation Date: 12/02/18 10:00 <No data on this case meets the specified criteria> Operation Date: 12/05/18 14:00 Procedure Operation Date: 11/29/18 10:00 Actual Procedures p Endoscopic Retrograde Cholangiopancreato(Not Applicable) - Sussy Shields MD Operation Date: 12/01/18 06:40 Actual Procedures p Ins/RemTemporary Transvenous Pacer - Mil Joshi MD s Cineradiography w/Routine Exam - Mil Joshi MD s Ultrasound Vascular Access - Mil Joshi MD Operation Date: 12/01/18 10:30 <No data on this case meets the specified criteria> Operation Date: 12/02/18 09:30 Actual Procedures p Laparoscopic Cholecystectomy with cholangiogram(Not Applicable) - Jorge Singh MD Operation Date: 12/02/18 10:00 Actual Procedures p Cineradiography w/Routine Exam - Mil Joshi MD Operation Date: 12/05/18 14:00 Actual Procedures p Pacer with A/V Leads (Dual) - Caroline Serrano DO TVP removal Caroline Serrano DO Surgeon Caroline Serrano DO [employer] Kenn Estimated Blood Loss 0 Findings Consistent with Post-Op Diagnosis Specimens none Description of Procedure see official report I attest to the content of the Intraoperative Record and any orders documented therein. Any exceptions are noted below.
--- NOTE | 2018-12-05 16:55 | Post Anesthesia Assessment ---
Date of Service December 05, 2018 Post Sedation Assessment Vital Signs Temp Pulse Resp BP Pulse Ox 12/05/18 15:05 81 12/05/18 15:00 75 20 118/65 95 12/05/18 14:00 79 22 110/66 95 12/05/18 13:00 89 27 H 109/62 96 12/05/18 12:00 36.6 C 88 16 115/68 94 12/05/18 11:00 72 16 121/64 95 12/05/18 10:00 84 17 110/63 93 12/05/18 09:00 72 22 102/58 L 91 12/05/18 08:00 36.8 C 94 H 16 124/68 91 12/05/18 07:00 96 H 16 107/62 92 12/05/18 06:00 66 18 94/53 L 95 12/05/18 05:00 92 H 16 110/60 93 12/05/18 04:00 36.3 C L 67 15 93/50 L 93 12/05/18 03:00 75 18 106/59 L 94 12/05/18 02:00 72 15 96/55 L 93 12/05/18 01:00 79 17 98/58 L 93 12/05/18 00:00 36.9 C 79 17 99/54 L 92 12/04/18 23:00 81 21 89/61 L 93 12/04/18 22:00 83 19 119/64 93 12/04/18 21:00 76 15 101/55 L 95 12/04/18 20:00 36.9 C 85 16 100/59 L 94 12/04/18 19:00 74 14 104/56 L 94 12/04/18 17:01 90 20 94 12/04/18 17:00 94 H 18 98/53 L 93 Recovery Score Activity: Moves 4 extremities Respiration: Deep Breath/Cough Circulation: +/-20% PreAnes Value Consciousness: Fully Awake Oxygen Saturation: O2 needed for >90% Post Anesthesia Score: 9 Discharge Sedation Level of Care: Fast Track Phase II Post Sedation Plan On clinical assessment, the patient appears to have tolerated the sedation without complications. Patient is recovering as anticipated. Patient will continue to be monitored by nursing and may be discharged when sedation discharge criteria are met per below protocol. Upon Completions of procedure and additional 15 minutes continue every 5 minute vital signs and the P.A.R. score; then discharge to a Phase I or Fast Track to Phase II per the following guidelines: * Discharge Patient to appropriate Phase II area if PAR is 8 or greater or return to pre- procedure baseline. The post - procedure orders will be as directed. * If PAR score is less than 8 or not return to pre-procedure baseline then patient will follow Phase I monitoring till PAR is reached for Phase II. The Phase I may be done in procedure room or may call to secure a Phase I area. * If naloxone or flumazenil are used for reversal, hold in Phase I for continued monitoring from when last reversal dose was given for a minimum of 60 minutes or longer pending the nurse and/or physician discretion of patient condition before discharge to Phase II. Please call the Sedation Physician to re-evaluate and complete post-note for discharge to Phase II area. Do NOT discharge from procedure sedation or Phase 1 until post- sedation evaluation note is complete by procedure /sedation MD Sedation Discharge Instructions to be given to the patient at discharge to home.
--- NOTE | 2018-12-05 19:26 | Procedure Note ---
Procedure Note Date of Service December 05, 2018 Note Central line was placed, right IJ anterior, under ultrasound guidance, the need is patient with GI bleeding and has no IV access whatsoever, multiple attempts by IV team and nursing staff without any success to place one in the right arm, left arm has AV fistula, subclavian she has tunneled dialysis catheter in the past on both sides. However patient risk and benefit explained, in details, agreed to the procedure. The patient under ultrasound guidance, at the anterior approach of the right IJ, the IJ was visualized, the skin was prepped with chlorhexidine under strict sterile field, injected with 5 mL of 1% lidocaine, Seldinger technique was used with out scalpel, only dilator, the line was placed to 15 cm, flushed with saline, secured with 2 sutures, covered with surgical dressing, chest x-rays pending. Tolerated the procedure very well. No immediate complication. Thank you. Coding CPT Codes Tubes, Drains, and Vasc Access - Tubes, Drains, and Vasc Access: Place catheter in vein superior or inferior vena cava ([id number])
[2018-12-05] MEDS: TAMSULOSIN HCL 0.4 MG CAP PO SCH (19:35)
[2018-12-05] MEDS: Heparin IV Low Dose *NO* Bolus IV SCH (20:14)
[2018-12-05] MEDS: HYDROmorphone INJ 0.5 MG/0.5 ML SYR IV PRN (22:16)
[2018-12-06 06:44] LABS: Hematocrit (blood only) 34.2 % (42-52); Hemoglobin 11.7 g/dL (14.0-18.0); Mean Corpuscular Hgb Conc 34.2 g/dL (32-36); Mean Corpuscular Volume 93.4 fL (80-100); Mean Platelet Volume 9.7 fL (7.4-10.4); Platelet Count 127 K/uL (130-400); RDW Coefficient of Variation 14.4 % (11.5-14.5); RDW Standard Deviation 48.9 fL (36.4-46.3); Red Blood Count 3.66 M/uL (4.7-6.1); White Blood Count 6.63 K/uL (4.8-10.8)
[2018-12-06 06:52] LABS: INR 1.1 (0.9-1.1); Prothrombin Time 10.8 Seconds (9.0-12.0)
[2018-12-06 07:08] LABS: Albumin Level 2.5 gm/dl (3.4-5.0); BUN Creatinine Ratio 17.3 (10-20); Calcium 8.8 mg/dl (8.5-10.1); Creatinine Clr Calc Pharmacy 72.9 ml/min; Est GFR (African American) 101.5; Est GFR (Non-African American) 87.6; Potassium 3.7 mmol/L (3.5-5.1)
[2018-12-06 07:11] LABS: Albumin Globulin Ratio 0.8 (0.9-2); Bilirubin,Total 0.9 mg/dl (0.2-1); Globulin 3.2 gm/dl (2.5-4.0); Total Protein 5.7 gm/dl (6.4-8.2)
[2018-12-06] MEDS: PANTOprazole 40 MG TAB PO SCH (07:33)
[2018-12-06] MEDS: FINASTERIDE 5 MG TAB PO SCH (07:34)
--- NOTE | 2018-12-06 07:48 | Hospitalist Progress Note ---
Date of Service December 06, 2018 Assessment & Plan (1) Choledocholithiasis with acute cholecystitis with obstruction: Ongoing issue for months but worsening symptoms over three days LIST OF FIRST [employer]OB IDE[employer], particularly last 24 hours. Noted to have elevated LFTs (TB: 4.4, AST - 412, ALT- 379, ALP - 193 ) and mild GB wall thickening and mild pericholecystic edema on imaging - Per surgery consult early acute vs chronic cholecystitis. 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 CBD stone removal with stent placement. Hold Xarelto/Anticoagulation for 5 days post ERCP -S/P Lap Rocío by Dr Singh -Drain out -Empirically on IV Zosyn - DC tomorrow -Blood cx x 2 - not collected on admission (now on day 2 antibiotics)-no signs of sepsis/fever Resume Post Op Care per Surgery Protocol Incentive Spirometry 10x per Hour Resume Relative Home Meds Where Appropriate Transition to PO Pain control DVT Prophylaxis Per Surgery Protocol Monitor Daily Labs (2) Heart block, AV: Baseline first-degree AV block but noted to have Mobitz 1 second-degree AV block and transient third-degree AV block with pauses on the monitor in ED. -S/P External pacemaker pads placed since admission ---> Transvenous Temporary pacemaker placed on 12/01/18 by Cardiology--> Transferred to ICU post temp pacemaker insertion. Permanent pacemaker placed 12/05. -During procedure -ERCP- had HR drop to 20s requiring atropine and external pacing. Intermittent episodes of bradycardia and blocks -Cardiology and EP on board. 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 - MRI needs to be repeated - Will need to follow up outpatient (6) GERD (gastroesophageal reflux disease): Not currently taking any medication for this complaint - pt does report increasing heartburn symptoms -Started on Protonix (7) BPH with obstruction/lower urinary tract symptoms: -Flomax and Proscar -Urine Retention- Bladdr training DVT PROPHYLAXIS -Xarelto -Heparin SQ on hold DISPOSITION -Tele DC tomorrow planned 12/07 Labs reviewed ROS-No Headache, No Visual Changes, No Nausea, No Vomiting, No Fever, No Chills, No Neck Pain or Stiffness, No Chest Pain, No Palpitations, No SOB, No MUNROE, No Cough, No Sputum, No Wheezing, No Abdominal Pain, No Diarrhea, No Hematemesis, No Hemoptysis, No Unexpected Weight Loss, No Flank pain, No Melena, No Hematochezia, No Frequency, No Urgency, No Burning, No Hematuria, No Rashes, No Diaphoresis. Appetite is Normal Physical Exam Gen-AAO x 3, NAD, Afebrile, Drain in place, Central line R IJ Head-NCAT, EOMI, PERRLA, Anicteric Sclera, No Posterior Pharyngeal Erythema Neck-Supple, No JVD, No Thyromegaly, No Masses, No LAD, No Bruits Lungs-Clear to Auscultation Bilaterally, No Rales, No Rhonchi, No Wheezing, No Crepitus Chest-No S4, +S1, +S2, No S3, No Murmurs, No Rubs, No Gallops, No Ectopy, Incision c swelling and mild echymosis Abdomen-Soft, Bowel Sounds Present, Tender, Non Distended, No Hepatomegaly, No Splenomegaly, No Palpable Masses, No Rebound, No Rigidity, No Guarding Musculoskeletal-Full Range of Motion Bilaterally, No CVAT Extremities-No Cyanosis, No Clubbing, No Edema Nuero-Cranial Nerves II-XII grossly intact, Motor WNL, DTRs WNL, Strength WNL, Non Focal Psych-Normal Mood Results & Data Vital Signs (Past 12 Hours) Vital Signs Temp Pulse Pulse Resp BP Pulse Ox 12/06/18 07:32 36.7 C 91 H 18 111/71 93 12/06/18 03:44 36.4 C L 72 16 111/67 96 12/05/18 23:05 60 12/05/18 22:34 36.6 C 69 16 119/70 94 12/05/18 20:00 60 (1) Pulmonary embolism Chronicity: acute Pulmonary embolism type: unspecified (2) GERD (gastroesophageal reflux disease) Esophagitis presence: without esophagitis Qualified Code(s): K21.9 - Gastro- esophageal reflux disease without esophagitis
[2018-12-06] MEDS: RIVAROXABAN 20 MG TAB PO SCH (08:37)
--- NOTE | 2018-12-06 08:55 | XRay Report ---
TWO VIEW CHEST CLINICAL HISTORY: Status post pacemaker implantation. FINDINGS: AP and lateral chest radiographs are compared to study dated 12/02/2018 and correlated with chest CT dated 08/12/2018. A 2-lead cardiac pacemaker is new from previous and partially obscures the l eft mid chest. Leads project over the right atrial appendage and the right ventricle. The heart is mi ldly enlarged and there is atherosclerotic calcification of the thoracic aorta. Enlargement of the ce ntral pulmonary arteries suggests pulmonary artery hypertension. There is no radiographic evidence of congestive failure. There is bibasilar scarring/atelectasis with chronic elevation of the right ronit diaphragm. No airspace consolidation is seen typical for pneumonia and there is no large pleural effu nilesh. There is no pneumothorax. The skeletal structures are osteopenic. Degenerative change and scoli osis are noted in the thoracic spine. Arthritic change is seen in the left shoulder. Cholecystectomy clips and a common bile duct stent are noted in the right upper quadrant. IMPRESSION: 1. A 2-lead cardiac pacemaker has been placed as above. No pneumothorax is identified post procedure. 2. Mild cardiac enlargement without radiographic evidence of congestive failure. 3. There is bibasilar scarring/atelectasis. No airspace consolidation or large pleural effusion is se en. Electronically signed by: Juan Farr M.D. 12/06/2018 8:54 AM
--- NOTE | 2018-12-06 11:27 | Surgery Progress Note ---
Date of Service December 06, 2018 Assessment & Plan (1) Choledocholithiasis with acute cholecystitis with obstruction: POD#4 from lap cholecystectomy. Doing well from surgical standpoint and OK to discharge when medical issues resolved. Drain was removed yesterday. Postop instructions reviewed with pt (OK to shower and remove drain dressing, low fat diet, restrictions on activity for 2 wks from GB standpoint). Subjective Feels well. No abdominal pain. Sore at the pacemaker site. Looking forward to going home tomorrow. Eating well. Physical Exam Gastrointestinal (Abdomen): Inspection/Auscultation: abdomen normal to inspection, normal bowel sounds and + abdominal surgical incision (clean and intact) Percussion/Palpation: abdomen soft Results & Data Vital Signs (Past 12 Hours) Vital Signs Temp Pulse Resp BP Pulse Ox 12/06/18 07:32 36.7 C 91 H 18 111/71 93 12/06/18 03:44 36.4 C L 72 16 111/67 96
--- NOTE | 2018-12-06 13:52 | Cardiology Progress Note ---
Date of Service December 06, 2018 Assessment & Plan (1) Heart block, AV: s/p dual chamber ppm placement tolerated well placement confirmed functioning appropriately (2) Pulmonary embolism: heparin d/c'ed and Xarelto restarted (3) Abdominal pain: (4) Pituitary tumor: Will need MRI and further MRIs to evaluate and follow. MRI compatible pacemaker indicated Subjective Pt seen and examined, states that he feels well, understandably sore at pocket site. Denies cp, sob, palpitations, lightheadedness or dizziness. tele reviewed: sinus with intermittent a paced rhythm Review of Systems Review of Systems: All systems reviewed & are unremarkable except as noted in HPI & below Physical Exam Physical Exam: General: Awake, alert and oriented x 3. No acute distress. HEENT: Normocephalic, atraumatic. Pupils equal, round and reactive to light and accommodation. Extraocular muscles are intact. Anicteric sclera. Moist mucous membranes. Neck: No JVD. No bruit. Cardiovascular: Regular. Positive S-4. Normal S-1 and S-2. No S-3. No murmurs or rubs. Pulmonary: Clear to auscultation B/L. No rales, rhonchi or wheezing Abdomen: Bowel sounds x 4, soft. No rebound, guarding or tenderness. No organomegaly. Extremities: No clubbing, cyanosis or edema. +2 pedal pulses bilaterally. Skin: Warm and dry. Results & Data Vital Signs (Past 12 Hours) Vital Signs Temp Pulse Resp BP Pulse Ox 12/06/18 11:38 37 C 86 18 104/66 94 12/06/18 07:32 36.7 C 91 H 18 111/71 93 12/06/18 03:44 36.4 C L 72 16 111/67 96 (1) Pulmonary embolism Chronicity: acute Pulmonary embolism type: unspecified
[2018-12-06] MEDS: TAMSULOSIN HCL 0.4 MG CAP PO SCH (20:30)
[2018-12-07 07:19] LABS: Hematocrit (blood only) 35.2 % (42-52); Hemoglobin 11.9 g/dL (14.0-18.0); Mean Corpuscular Hgb Conc 33.8 g/dL (32-36); Mean Corpuscular Volume 92.4 fL (80-100); Mean Platelet Volume 9.7 fL (7.4-10.4); Platelet Count 145 K/uL (130-400); RDW Coefficient of Variation 14.5 % (11.5-14.5); RDW Standard Deviation 48.7 fL (36.4-46.3); Red Blood Count 3.81 M/uL (4.7-6.1); White Blood Count 6.03 K/uL (4.8-10.8)
[2018-12-07 07:39] LABS: BUN Creatinine Ratio 16.2 (10-20); Calcium 8.9 mg/dl (8.5-10.1); Creatinine Clr Calc Pharmacy 65.1 ml/min; Est GFR (African American) 96.8; Est GFR (Non-African American) 83.5; Potassium 3.6 mmol/L (3.5-5.1)
[2018-12-07] MEDS: RIVAROXABAN 20 MG TAB PO SCH (09:11)
[2018-12-07] MEDS: FINASTERIDE 5 MG TAB PO SCH (09:11)
[2018-12-07] MEDS: PANTOprazole 40 MG TAB PO SCH (09:11)
--- NOTE | 2018-12-07 10:11 | Discharge Summary ---
Date of Service December 07, 2018 Admission HPI Per Admitting Provider This is a 78 y/o male with a PMH of DVT/PE, HTN, BPH with obstructive symptoms, and GERD who presents to the ED today with worsening epigastric pain and nausea. He reports episodic epigastric pain intermittently for months but worsening over the past three days. At present describes a constant burning pain that may radiate to RUQ, LUQ or chest. Pain also radiates to right back at times but not to shoulder. Nausea past 24 hours but no vomiting although he does describe regurgitation of food. He denies diarrhea, melena or hematochezia. No change in chronic urinary frequency. Denies fevers, chills, sweats. Ongoing loss of appetite with unspecified weight loss over past several months. He has discussed with PCP as outpatient. No dysphagia. Regurgitation and heartburn intermittently over past several weeks - pt had difficulty quantifying symptom frequency. Pt declined to start any additional medications at last PCP visit. He reports occasional sharp chest pain without radiation. No cough, dyspnea, wheezing, chest congestion. Noted to have an episode of heart block in ED (baseline first degree block progressed transiently) - pt was aware of pause. Reports similar episodes of missed beats or pauses for years but increasing in frequency over past three months - now may happen multiple times per day. Reports his sister has been checking his blood sugar at home - may be over 200 even 3-4 hours after eating. He discussed this with PCP and it appears A1c was ordered but pt never had it done. History of pituitary macroadenoma diagnosed in 2008 - was stable on MRI in 2016 although neurology referred him to neuroendocrine but pt states never followed up. 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 Pt denies any visual changes at present. Note that patient was somewhat of a difficult historian with poor recollection of symptoms at times. Admission Exam Per Admitting Provider Constitutional: WD/WN, vitals as above no acute distress Eyes: + scleral abnormality (trace scleral icterus) and PERRL; no conjunctival abnormality ENMT: external ear and nose normal, oropharynx normal Neck: trachea midline Respiratory: normal respiratory effort; no respiratory distress and no labored breathing Auscultation: lungs clear to auscultation bilaterally; no rales, no rhonchi and no wheezes Cardiovascular: Rate/Rhythm: regular rate and regular rhythm Heart Sounds: no gallop and no cardiac rub Extremities: normal capillary refill; no calf tenderness and no pedal edema Gastrointestinal (Abdomen): Inspection/Auscultation: normal bowel sounds; abdomen not distended Percussion/Palpation: + abdomen tender (mild epigastric/RUQ to deep palpation) and abdomen soft; no guarding Musculoskeletal: Head/Neck/Chest: normocephalic and head atraumatic Extremities: no cyanosis Skin: no rashes, warm and dry normal turgor Neurologic: moves all extremities Motor/Sensory: no tremor Diminished sensation to light touch RLE (pt reports chronic deficit) Psychiatric: A+Ox3, euthymic affect Insight: + poor insight Principal Diagnosis PE and DVT Acute Cholecystitis Heart Block Requiring Pacer BPH Elevated LFTs GERD Discharge Exam ROS-No Headache, No Visual Changes, No Nausea, No Vomiting, No Fever, No Chills, No Neck Pain or Stiffness, No Chest Pain, No Palpitations, No SOB, No MUNROE, No Cough, No Sputum, No Wheezing, No Abdominal Pain, No Diarrhea, No Hematemesis, No Hemoptysis, No Unexpected Weight Loss, No Flank pain, No Melena, No Hematochezia, No Frequency, No Urgency, No Burning, No Hematuria, No Rashes, No Diaphoresis. Appetite is Normal, c/o Urine retention Physical Exam Gen-AAO x 3, NAD, Afebrile Head-NCAT, EOMI, PERRLA, Anicteric Sclera, No Posterior Pharyngeal Erythema Neck-Supple, No JVD, No Thyromegaly, No Masses, No LAD, No Bruits Lungs-Clear to Auscultation Bilaterally, No Rales, No Rhonchi, No Wheezing, No Crepitus Chest-No S4, +S1, +S2, No S3, No Murmurs, No Rubs, No Gallops, No Ectopy Abdomen-Soft, Bowel Sounds Present, Non Tender, Non Distended, No Hepatomegaly, No Splenomegaly, No Palpable Masses, No Rebound, No Rigidity, No Guarding Musculoskeletal-Full Range of Motion Bilaterally, No CVAT Extremities-No Cyanosis, No Clubbing, No Edema Nuero-Cranial Nerves II-XII grossly intact, Motor WNL, DTRs WNL, Strength WNL, Non Focal Psych-Normal Mood Discharge Data Allergies Allergy/AdvReac Type Severity Reaction Status Date / Time No Known Allergies Allergy Unverified 11/28/18 06:36 Consultations 11/28/18 10:43 Consult Cardiology Stat 11/28/18 10:44 Consult General Surgery Stat 11/28/18 10:50 ED Decision to Admit Stat 11/28/18 13:33 Consult Cardiology Routine Consult Case Management - Discharge Planning Routine Consult Gastroenterology Routine Consult General Surgery Routine 12/01/18 12:57 Consult Marine Pilot Routine 12/04/18 09:12 Consult Urology Routine 12/05/18 11:06 Consult Case Management - Discharge Planning Routine Procedures Performed Operation Date: 11/29/18 10:00 Actual Procedures p Endoscopic Retrograde Cholangiopancreato(Not Applicable) - Sussy Shields MD Operation Date: 12/01/18 06:40 Actual Procedures p Ins/RemTemporary Transvenous Pacer - Mil Joshi MD s Cineradiography w/Routine Exam - Mil Joshi MD s Ultrasound Vascular Access - Mil Joshi MD Operation Date: 12/01/18 10:30 <No data on this case meets the specified criteria> Operation Date: 12/02/18 09:30 Actual Procedures p Laparoscopic Cholecystectomy with cholangiogram(Not Applicable) - Jorge Singh MD Operation Date: 12/02/18 10:00 Actual Procedures p Cineradiography w/Routine Exam - Mil Joshi MD Operation Date: 12/05/18 14:00 Actual Procedures p Pacer with A/V Leads (Dual) - Caroline Serrano DO s Venogram, Unilateral - Caroline Serrano DO Ordered Studies 11/28/18 06:37 CT abd pelvis IV con only Stat US abdomen limited Stat 11/29/18 09:00 FL ERCP biliary ductal Routine 12/01/18 10:37 CL Cath Imgs for PACS use only Routine 12/02/18 FL cholangiogram OR Routine 12/05/18 12:45 EP Lab Images for PACS ONCE Current Diagnoses 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) Hypokalemia (11/28/18) Other pulmonary embolism without acute cor pulmonale (11/28/18) Unspecified atrioventricular block (11/28/18) Gastro-esophageal reflux disease without esophagitis (11/28/18) Calculus of bile duct with acute cholecystitis with obstruction (11/28/18) Acute cholecystitis (11/28/18) Obstruction of bile duct (11/28/18) Other obstructive and reflux uropathy (11/28/18) Benign prostatic hyperplasia with lower urinary tract symptoms (11/28/18) Epigastric pain (11/28/18) Unspecified abdominal pain (11/28/18) Retention of urine, unspecified (11/28/18) Abnormal results of liver function studies (11/28/18) Encounter for other preprocedural examination (11/28/18) Allergies No Known Allergies Allergy (Unverified 11/28/18 06:36) Height/Weight/Isolation Height 5 ft 11 in Weight 64.1 kg Chemistry 12/06/18 12/07/18 06:15 07:10 Sodium 142 144 Potassium 3.7 3.6 Chloride 109 H 109 H Carbon Dioxide 28 27 Anion Gap 5.0 8.0 BUN 13 13 Creatinine 0.73 0.82 Glucose 86 97 Hospital Course (1) Choledocholithiasis with acute cholecystitis with obstruction: Ongoing issue for months but worsening symptoms over three days [employer]TE[employer]INE[employer], particularly last 24 hours. Noted to have elevated LFTs (TB: 4.4, AST - 412, ALT- 379, ALP - 193 ) and mild GB wall thickening and mild pericholecystic edema on imaging - Per surgery consult early acute vs chronic cholecystitis. 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 CBD stone removal with stent placement. Hold Xarelto/Anticoagulation for 5 days post ERCP -S/P Lap Rocío by Dr Singh -Drain out -Empirically on IV Zosyn - DC today off abx (2) Heart block, AV: Baseline first-degree AV block but noted to have Mobitz 1 second-degree AV block and transient third-degree AV block with pauses on the monitor in ED. -S/P External pacemaker pads placed since admission ---> Transvenous Temporary pacemaker placed on 12/01/18 by Cardiology--> Transferred to ICU post temp pacemaker insertion. Permanent pacemaker placed 12/05. -During procedure -ERCP- had HR drop to 20s requiring atropine and external pacing. Intermittent episodes of bradycardia and blocks -Cardiology and EP on board. 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 - MRI needs to be repeated - Will need to follow up outpatient (6) GERD (gastroesophageal reflux disease): Protonix (7) BPH with obstruction/lower urinary tract symptoms: -Flomax and Proscar -Urine Retention- Replace Casarez and f/u c Dr De Los Santos in the office DISPOSITION DC today 12/07 Labs reviewed Total Time Total Time Spent Total Time Spent (In Minutes): 90 mins Total Time Includes: Examination of the Patient, Discharge Planning, Medication Reconciliation and Communication With Other Providers Discharge Plan Discharge Items Patient Disposition: Home - Self-Care Reason For Visit: ACUTE CHOLEYSTITIS Discharge Diagnosis: PE and DVT Acute Cholecystitis Heart Block Requiring Pacer BPH Elevated LFTs GERD Condition: Good Discharge Goals: Decrease discomfort, Improve function and Improve nutritional status Activity: As commented below Activity Comment: do not lift your left shoulder over the left arm for 2 weeks Lifting: No more than 10 pounds Lifting Comment: do not lift more than 10 pounds with the left arm for 2 weeks Bathing: No limitations and Keep incision dry Bathing Comment: can shower Sun 12/07 let water run over the pacemaker do not scrub it Driving/Machine Use Comment: As per EP-Cardiology, and Surgery Weightbearing: Left weightbearing and Right weightbearing Non-emergency contact: Primary Care Provider, Surgeon and Celebrity Manager Call non-emergency contact if: you have a fever, your temperature is above 101.5 and your wound has increased redness Follow-up/Referrals: Som De Los Santos MD [Physician] - (To have casarez removed-Call office for instructions) Jorge Singh MD [Surgeon] - (Call to make an appt in 7-10 days) Indio Alarcon MD [Physician] - (1-2 weeks) Nano Sanchez MD [Primary Care Provider] - (Call for first opening) Caroline Serrano DO [Physician] - (3-5 days) Diet: Regular and Heart Healthy Addtl Provider Instructions: pacemaker check and wound check in [facility] on Tuesday 12/12 If you notice any swelling call Dr. Serrano's office immediately Prescriptions: New pantoprazole 40 mg Tablet,Delayed Release (Dr/Ec) 40 mg PO DAILY Qty: 30 RF: 0 Continued tamsulosin 0.4 mg capsule 0.4 mg PO QAM RF: 0 finasteride 5 mg tablet 5 mg PO QAM RF: 0 Xarelto 20 mg tablet 20 mg PO QAM RF: 0 Stand-Alone Forms: Call Back Authorization, [facility] Discharge Orders: Discharge Order (Routine); Ordered 12/07/18 Ordered By: Dustin Valencia Admission Data Admit Date/Time: 11/28/18 11:48 Attending Provider: Dustin Valencia Admit Provider: Almita Jewell Primary Care Provider: Nano Sanchez Other Providers: Indio Alarcon ; Xavier Collier ; Gretchen Faustin ; Almita Jewell ; Som Garcia ; Simon Aceves ; Forest Vidal ; Liu Graff ; Ronnie Rodríguez ; Zunilda Khoury ; Caroline Serrano ; Tommy Garg ; Carolyn aFtima ; Jahaira Miller ; Seferino Khan ; Tata Bennett ; Casandra Michele ; Desiree Gunter ; Francois Husain ; Drew Blue ; Virginia Astorga ; Sendy Littlejohn ; Deanne Comer ; Charlee Rivas ; Sussy Shields ; Mateo Alves ; Mikael Nguyen ; Som De Los Santos ; Isaiah Benedict I. ; Mil Potts ; Dolores Hebert ; Paramjit Carter II ; Ny Lennon Service: Telemetry
--- NOTE | 2018-12-07 12:15 | Cardiology Progress Note ---
Date of Service December 07, 2018 Assessment & Plan (1) Heart block, AV: s/p dual chamber ppm placement tolerated well placement confirmed functioning appropriately ok to d/c to home from cardiac standpoint cardiac office will call to arrange f/u (2) Pulmonary embolism: heparin d/c'ed and Xarelto restarted (3) Abdominal pain: (4) Pituitary tumor: Will need MRI and further MRIs to evaluate and follow. MRI compatible pacemaker indicated Subjective Pt seen and examined, states that he feels well, soreness at pocket site improving. Denies cp, sob, palpitations, lightheadedness or dizziness. Anxious for discharge. tele reviewed: sinus with intermittent a paced rhythm Review of Systems Review of Systems: All systems reviewed & are unremarkable except as noted in HPI & below Physical Exam Physical Exam: General: Awake, alert and oriented x 3. No acute distress. HEENT: Normocephalic, atraumatic. Pupils equal, round and reactive to light and accommodation. Extraocular muscles are intact. Anicteric sclera. Moist mucous membranes. Neck: No JVD. No bruit. Cardiovascular: Regular. Positive S-4. Normal S-1 and S-2. No S-3. No murmurs or rubs. Pulmonary: Clear to auscultation B/L. No rales, rhonchi or wheezing Abdomen: Bowel sounds x 4, soft. No rebound, guarding or tenderness. No organomegaly. Extremities: No clubbing, cyanosis or edema. +2 pedal pulses bilaterally. Skin: Warm and dry. Results & Data Vital Signs (Past 12 Hours) Vital Signs Temp Pulse Resp BP BP Pulse Ox 12/07/18 11:10 36.9 C 83 18 106/66 111/65 96 12/07/18 10:55 36.9 C 83 18 111/65 96 12/07/18 07:48 36.6 C 90 19 102/63 94 12/07/18 03:19 36.6 C 78 16 113/71 94 (1) Pulmonary embolism Chronicity: acute Pulmonary embolism type: unspecified
--- NOTE | 2018-12-16 21:17 | Operative Report ---
DATE OF OPERATION: 12/05/2018 PREOPERATIVE DIAGNOSIS: Intermittent complete heart block. POSTOPERATIVE DIAGNOSIS: Intermittent complete heart block. PROCEDURE: Dual chamber responsive permanent pacemaker under fluoroscopic guidance as well as a peripheral venogram and transvenous pacemaker removal. SURGEON: Caroline Serrano DO. LABORATORY CUREMAN: None. ANESTHESIA: Monitored conscious sedation administered under my supervision by Seferino Cunha. Start time 1606, end time 1651. A total of 3 mg of Versed and 75 mcg of fentanyl. INTRAVENOUS FLUIDS: 50 mL. ANTIBIOTICS: 1 gram of Ancef. BLOOD LOSS: 10 mL. URINE OUTPUT: Not applicable. SPECIMENS: None. FINDINGS: See below. DRAINS: None. BLEEDIN mL. COMPLICATIONS: None. CONDITION: Stable. INDICATIONS: This is an 78-year-old gentleman who was admitted to [facility] on 11/28/2018 secondary to severe abdominal pain where he was found to have acute cholecystitis. He also at that time was having intermittent complete heart block, so a transvenous pacemaker was placed. He underwent ERCP and then eventually a cholecystectomy. He did dislodge his transvenous pacer one time during the hospitalization. Once he recovered a little bit from his surgery and he had been on prolonged antibiotics, a permanent pacemaker was recommended due to intermittent complete heart block. CONSENT: Consent was obtained prior to the patient going into the Electrophysiology lab. The patient was informed of the risks, benefits and alternatives to the procedure. Risks include but not limited to sudden cardiac , cardiac arrhythmias, cerebrovascular accident, myocardial infarction, injury to the blood vessels, chamber of the heart, bleeding and infection. The patient understood these risks and agreed to the procedure as planned. Informed consent was obtained. DESCRIPTION OF THE PROCEDURE: 10 mL of 1% lidocaine, bupivacaine mixture were given in the left deltopectoral groove. Incision was made in left deltopectoral groove. Once this was performed down to identify cephalic vein, none could be identified, so peripheral venogram using 10 mL of IV contrast diluted in 10 mL of saline followed by 20 mL flush was performed. The axillary vein was then identified and I accessed with no problem. A guidewire was inserted without any resistance. The 8-British sheath was inserted over the guidewire without any resistance. Dilator was removed. A second guidewire was inserted through the 8-British sheath to allow for retained venous access. Sheath was removed, flushed, dilator was flushed and reinserted over the sheath. Then 8-British sheath was reinserted over the guidewire. The guidewire and dilator removed. Right ventricular lead was then advanced into right ventricle and positioned in right ventricular apex under fluoroscopic guidance. There was adequate pacing and sensing thresholds and no diaphragmatic stimulation with high output pacing. The 8-British sheath was peeled away and lead was fixated to pectoralis muscle using 0 silk suture. A second 8-British sheath was inserted over the retained guidewire without any resistance. Guidewire and dilator removed. The right atrial lead was then advanced into right atrium and positioned into right atrial appendage under fluoroscopic guidance. There was adequate pacing and sensing thresholds and no diaphragmatic stimulation with high output pacing. The 8-British sheath was peeled away and it was fixated to pectoralis muscle using 0 silk suture. Pacemaker pocket was created using blunt dissection over the pectoralis muscle within the pectoral fascia. Pocket was flushed with copious amounts of bacitracin and saline wash and inspected for hemostasis. Pulse generator was then attached to the leads, making sure that the pins were in appropriate position, passed set screws and set screws were tightened. The pulse generator was then placed in an antibiotic pouch followed then by being placed in the pocket, making sure that the leads were lying flat beneath the device. A stay stitch using 0 silk suture was used to secure the pectoralis muscle. The incision was then closed in a 3-layer fashion with 2-0 Vicryl interrupted suture followed by 3-0 Vicryl suture followed by 4-0 Monocryl running stitch. Dermabond was applied. Then under fluoroscopic guidance, the transvenous pacer was removed and the sheath was pulled from the TVP using manual compression to establish hemostasis. EQUIPMENT: 1. Pulse generator is a [employer] [place] XT DR ASHLEIGH Rogers [id number], serial number [id number]. 2. Antibiotic pouch is reference number [id number], lot number [id number], expiration 01/07/2019. 3. Right atrial lead Medtronic 5076-52 cm, serial number [id number]. 4. Right ventricular lead, Medtronic 5076-58 cm, serial number [id number]. INTRAOPERATIVE TESTIN. Right atrial lead: P-wave 1.6 millivolts, impedance 651 ohms, threshold 1.1 volt at 2.1 milliamps. 2. Right ventricular lead: R-wave 6.9 millivolts, impedance 987 ohms, threshold 0.7 volts at 0.8 milliamps. FINAL MEASUREMENTS THROUGH THE DEVICE: 1. Right atrial lead: P-wave 2.5 millivolts, impedance 475 ohms, threshold 0.5 volts at 0.4 milliseconds. 2. Right ventricular lead: R-waves 8 millivolts, impedance 760 ohms, threshold 0.5 volts at 0.4 milliseconds. FINAL PARAMETERS: MVP 60/120. Right atrial and right ventricular amplitude 3.5 volts, pulse width 0.4 milliseconds, sensitivity 0.3 millivolts. IMPRESSION: Successful implantation of dual chamber rate responsive permanent pacemaker under fluoroscopic guidance along with peripheral venogram secondary to intermittent complete heart block along with explant removal of a transvenous pacer. PLAN: Monitor patient overnight, 12-lead ECG, chest x-ray. He is not allowed to lift left elbow and left shoulder for 1 month. He cannot lift left arm for 2 weeks. He can shower in 2 days, let water run over incision, do not scrub and he should follow up in our [facility] in 1 week's time for a device and wound check. I attest to the content of the Intraoperative Record and any orders documented therein. Any exceptions are noted below. JENIFFER
== END 2018-12-07 12:40 | disposition home or self-care (01) | DRG 418 ==
LOC: ED 05:59 → SUATTDRO 11:48 → 2S 12:55 → 1E 12-01 10:48 → 2S 12-05 16:34

== ENCOUNTER 2023-01-09 18:13 | Inpatient (IN) ==
[2023-01-09 18:47] LABS: Basophils # (auto) 0.06 K/uL (0-0.2); Basophils % (auto) 0.9 %; Eosinophils # (auto) 0.19 K/uL (0-0.50); Eosinophils % (auto) 2.9 %; Hematocrit (blood only) 45.2 % (42.0-52.0); Immature Granulocytes # (auto) 0.04 K/uL (0.01-0.20); Immature Granulocytes % (auto) 0.6 %; Lymphocytes # (auto) 1.69 K/uL (1.2-3.4); Lymphocytes % (auto) 25.6 %; Mean Corpuscular Hemoglobin 32.1 pg (25.0-34.0); Mean Corpuscular Hgb Conc 35.4 g/dL (32.0-36.0); Mean Corpuscular Volume 90.6 fL (80.0-100.0); Monocytes # (auto) 0.52 K/uL (0.11-0.59); Monocytes % (auto) 7.9 %; Neutrophils % (auto) 62.1 %; Platelet Count 195 K/uL (130-400); RDW Standard Deviation 42.5 fL (36.4-46.3); Red Blood Count 4.99 M/uL (4.70-6.10)
[2023-01-09 19:00] LABS: Alanine Aminotransferase 20 U/L (7-52); Albumin Globulin Ratio 1.6 (0.9-2); Albumin Level 4.1 gm/dl (3.4-5.0); Alkaline Phosphatase 56 U/L (34-104); Anion Gap 9 (3-11); Aspartate Aminotransferase 23 U/L (13-39); BUN Creatinine Ratio 13.5 (10-20); Blood Urea Nitrogen 13 mg/dl (6-23); Calcium 9.3 mg/dl (8.6-10.3); Carbon Dioxide 24 mmol/L (21-32); Chloride 105 mmol/L (98-107); Est GFR (African American) 83.8 ml/min; Est GFR (Non-African American) 72.3 ml/min; Globulin 2.6 gm/dl (2.5-4.0); Glucose 99 mg/dl (70-99(Fasting)); Potassium 4.1 mmol/L (3.5-5.1); Sodium 138 mmol/L (136-145); Total Protein 6.7 gm/dl (6.0-8.3)
[2023-01-09 19:25] LABS: INR 1.5 (0.9-1.1); Partial Thromboplastin Ratio 1.5; Prothrombin Time 15.7 Seconds (9.0-12.0)
[2023-01-09 19:32] LABS: Partial Thromboplastin Time 43.5 Seconds (21.0-31.0)
[2023-01-09 19:33] LABS: Troponin I High Sensitivity 866.9 pg/ml (0-20)
[2023-01-09] MEDS ORDERED: MoRPHine SULFATE 2 MG/ML CARP IV STA (19:33)
[2023-01-09] MEDS ORDERED: ONDANSETRON INJ 2 MG/ML 2 ML VIAL IV STA (19:33)
--- NOTE | 2023-01-09 19:34 | Emergency Department Note ---
Impression & Plan Elevated troponin ADMIT ED Provider Note HPI: The patient is an 82-year-old gentleman with history of DVT/PE, currently on Xarelto, history of heart block status post pacemaker, presents emergency department with chief complaint of chest pain that has been ongoing and relatively constant since last night. Patient states he felt a constant sensation of upper chest discomfort last night that seem to improve throughout the night and then again returned earlier this morning. Patient states it seems to worsen when he lays flat. On arrival here to the ED the patient is hemodynamically stable, he is otherwise in no acute distress. Patient denies any nausea or vomiting, denies any shortness of breath. ROS: - Per HPI Differential Diagnosis: Acute coronary syndrome, pulmonary embolism, aortic dissection, pneumothorax, acute gastritis, pericarditis, amongst other potential pathologies. *Outpatient medications and allergy history reviewed. *Pertinent external medical records reviewed. PE: General: Alert, frail-appearing HEENT: Normocephalic, trachea midline Eyes: Extraocular eye movement is intact, no scleral erythema Pulmonary: Clear to auscultation bilaterally, no wheezing Cardio: Regular rate and rhythm GI: Abdomen is soft to palpation : No suprapubic tenderness MSK: No evidence of trauma or malformation of the extremities, no edema Skin: No evidence of rash Neuro: Alert, no focal deficits Psychiatric: Cooperative felt finisher: (As interpreted by myself): - An order was placed for continuous cardiac monitoring - Patient was noted to be in paced rhythm with a rate of 60 EKG: (As interpreted by myself): Rate: 60 Rhythm: Ventricular paced rhythm Intervals: IA indeterminate, QRS 100, QTc 414 ST changes: No ST elevation Time: 1823 Interventions provided in ED: -IV morphine, IV Zofran, aspirin Medical Decision Making: Shortly after the patient arrived IV was established and lab work obtained, patient was maintained on dope pourer. EKG per my interpretation shows evidence of paced rhythm without any obvious acute ischemic changes, lab work shows no leukocytosis, hemoglobin is normal, platelet count is normal, coagulation studies show prolonged aPTT, patient is noted to be on Xarelto. CMP was obtained and does not show any critical findings. High-sensitivity troponin level is noted to be elevated at 866. Chest x-ray does not show any obvious acute abnormalities, no evidence of widened mediastinum to suggest aortic dissection. On my reassessment the patient is comfortable in bed, I did discuss pacemaker interrogation with [employer] rep, they state that the patient has not had any events over the past several days. Patient states he feels improved following pain medicine here in the ED, he was updated and is aware of the above findings, he is in agreement for admission. At this time EKG does not show evidence of ST elevation HI, therefore I do not feel that the patient needs an emergent catheterization. I did discuss the case with the on-call hospitalist, Dr. Manley, who is in agreement to admit the patient for further management. We will hold on heparin drip given that the patient is already anticoagulated on Xarelto and has prolonged aPTT. I have low suspicion for PE because of this. Patient is in agreement for admission and he was placed for admission in stable condition. Consultants: Hospitalist, Dr. Manley Disposition discussion held by myself with: Patient and friend at bedside Diagnosis: 1. Chest pain, acute 2. Elevated high-sensitivity troponin level 3. History of pacemaker, interrogated in the ED Disposition: Admission Ronnie Faria DO Emergency Medicine Past Med/Surg History Medical History (Updated 01/10/23 @ 01:10 by Ronnie Faria DO) BPH with obstruction/lower urinary tract symptoms Dyslipidemia Essential hypertension Gait instability s/p multiple traumatic fractures 03/2017. GERD (gastroesophageal reflux disease) Heart block, AV First degree, several periods of third degree block (asymptomatic), identified during acute presentation with obstructive cholelithiasis, s/p ERCP and stent placement. Treated with temporary transvenous pacemaker to allow for cholecystectomy, then transitioned to dual-chamber pacer (Medtronic) 12/05/18. History of skin cancer Hypercoagulable state Kidney stones Left femoral vein DVT PE/DVT 07/2018 Lung nodule Osteoarthritis Pacemaker Implanted 12/05/18. Medtronic. Follows with Dr. Alarcon. Pituitary tumor Pituitary macroadenoma - dx in 2008 Poor historian Pulmonary embolism DX 07/2018 Skin cancer Surgical History History of appendectomy History of cholecystectomy 12/03/18 History of cystoscopy History of ERCP 12/01/18. MAC #3, ETT 7.5 GV I atraumatic x 1 DL. "Matt/pauses/possible 3rd degree heart block. Atropine 0.4mg IV administered. External pacemaker applied with rate 70bpm. Pt responded well. BP maintained WNL throughout. MDA aware. Pacer straps on chest." History of hernia repair History of hip surgery ORIF fracture of right acetabulum in 2017 History of tonsillectomy History of tooth extraction Hx of right knee surgery ORIF right patella fracture Family History (Updated 01/09/23 @ 21:28 by Dillan Manley MD) Grandmother (Maternal) Diabetes Other No significant family history Social History Smoking Status: Never smoker Second Hand Exposure: No; Do You Dip or Chew Tobacco: No (QUIT MANY YEARS AGO); Hx Alcohol Use: Yes Alcohol type: beer Hx Substance Use: No Preferred Language: Citizen Of [place] Communication Ability: Effective Visual Impairment: No Limitations Commissions Manager Required: No Beliefs That Will Affect Care: None Current Living Situation: Alone Current Living Situation Comment: lives w gf Feels Safe at Home: Yes Assistive Devices: None and Walker Allergies Allergies Allergy/AdvReac Type Severity Reaction Status Date / Time No Known Allergies Allergy Verified 02/22/19 07:48 Home Meds Home Medications Medication Instructions Recorded Confirmed finasteride 5 mg tablet 5 mg PO QAM 07/20/18 01/09/23 tamsulosin 0.4 mg capsule 0.4 mg PO QAM 07/20/18 01/09/23 rivaroxaban 20 mg tablet (Xarelto) 20 mg PO QPM 08/19/18 01/09/23 Results & Data (ED) Vital Signs Vital Signs - 24 hr 01/09/23 18:14 01/09/23 18:46 01/09/23 18:55 Temperature 36.5 C Temperature Source Temporal Artery Scan Pulse Rate 64 66 Respiratory Rate 16 Respiratory Effort / Characteristics Non-Labored Spontaneous Respiratory Depth Normal Blood Pressure 138/78 Blood Pressure Mean 98 Pulse Oximetry 98 98 Oxygen Delivery Method Room Air Room Air Sepsis Recent Fever Within 48 Hours No Sepsis New/Unexplained Change in Mental Status No Sepsis Action Taken by Nursing No Action Required 01/09/23 18:56 Temperature Temperature Source Pulse Rate 61 Respiratory Rate Respiratory Effort / Characteristics Respiratory Depth Blood Pressure Blood Pressure Mean Pulse Oximetry Oxygen Delivery Method Sepsis Recent Fever Within 48 Hours Sepsis New/Unexplained Change in Mental Status Sepsis Action Taken by Nursing Laboratory Data 01/09/23 18:30 01/09/23 18:30 Lab Results 01/09/23 01/09/23 01/09/23 Range/Units 18:30 18:30 18:30 WBC 6.60 (4.8-10.8) K/ul RBC 4.99 (4.70-6.10) M/uL Hgb 16.0 (14.0-18.0) g/dl Hct 45.2 (42.0-52.0) % MCV 90.6 (80.0-100.0) fL MCH 32.1 (25.0-34.0) pg MCHC 35.4 (32.0-36.0) g/dL RDW Std Deviation 42.5 (36.4-46.3) fL RDW Coeff of Kal 13.0 (11.5-14.5) % Plt Count 195 (130-400) K/uL MPV 10.0 (9.4-12.4) fL Immature Gran % (Auto) 0.6 % Neut % (Auto) 62.1 % Lymph % (Auto) 25.6 % [place] % (Auto) 7.9 % Eos % (Auto) 2.9 % Baso % (Auto) 0.9 % Neut # (Auto) 4.10 (1.40-6.50) K/uL Lymph # (Auto) 1.69 (1.2-3.4) K/uL [place] # (Auto) 0.52 (0.11-0.59) K/uL Eos # (Auto) 0.19 (0-0.50) K/uL Baso # (Auto) 0.06 (0-0.2) K/uL Immature Gran # (Auto) 0.04 (0.01-0.20) K/uL PT 15.7 H (9.0-12.0) Seconds INR 1.5 H (0.9-1.1) APTT 43.5 H* (21.0-31.0) Seconds PTT Ratio 1.5 Sodium 138 (136-145) mmol/L Potassium 4.1 (3.5-5.1) mmol/L Chloride 105 (98-107) mmol/L Carbon Dioxide 24 (21-32) mmol/L Anion Gap 9 (3-11) BUN 13 (6-23) mg/dl Creatinine 0.96 (0.6-1.4) mg/dl Est Cr Clr Drug Dosing Not Reportable Est GFR ( Amer) 83.8 ml/min Est GFR (Non-Af Amer) 72.3 ml/min BUN/Creatinine Ratio 13.5 (10-20) Glucose 99 (70-99(Fasting)) mg/dl Calcium 9.3 (8.6-10.3) mg/dl Total Bilirubin 1.0 (0.2-1.0) mg/dl AST 23 (13-39) U/L ALT 20 (7-52) U/L Alkaline Phosphatase 56 (34-104) U/L Troponin I High Sens 866.9 H* (0-20) pg/ml Total Protein 6.7 (6.0-8.3) gm/dl Albumin 4.1 (3.4-5.0) gm/dl Globulin 2.6 (2.5-4.0) gm/dl Albumin/Globulin Ratio 1.6 (0.9-2) Administered Medications Rivaroxaban (Rivaroxaban 20 Mg Tab) 20 mg PO QDD SHANDRA Stop: 02/08/23 21:40 Last Admin: 01/09/23 23:49 Dose: 20 mg Documented By: KAE Discontinued Medications Aspirin (Aspirin Chew 324 Mg) 324 mg PO NOW STA Stop: 01/09/23 19:44 Last Admin: 01/09/23 20:05 Dose: 324 mg Documented By: BOBBY Miscellaneous (Patient's Height &/Or Weight Needed) 1 each N/A NOW STA Stop: 01/09/23 22:08 Last Admin: 01/09/23 23:49 Dose: 1 each Documented By: KAE Morphine Sulfate (Morphine Sulfate 2 Mg/Ml Carp) 2 mg IV NOW STA Stop: 01/09/23 19:34 Last Admin: 01/09/23 19:41 Dose: 2 mg Documented By: KAE Ondansetron HCl (Ondansetron Inj 2 Mg/Ml 2 Ml Vial) 4 mg IV NOW STA Stop: 01/09/23 19:34 Last Admin: 01/09/23 19:41 Dose: 4 mg Documented By: KAE Discharge Plan Visit Data Chief Complaint: Chest Pain Stated Complaint: CHEST PAIN,BACK PAIN ED Provider: Ronnie Faria Discharge Problem: Elevated troponin Discharge Instructions Interventions: ED Discharge Assessment Last Done: 01/09/23 21:42
[2023-01-09] MEDS ORDERED: ASPIRIN CHEW 324 MG PO STA (19:43)
--- NOTE | 2023-01-09 21:35 | History & Physical Report ---
Date of Service January 09, 2023 Assessment & Plan (1) Chest pain: Plan: 82-year-old male with past medical significant for hyperlipidemia, lung nodule, complete AV block s/p pacemaker, benign neoplasm of pituitary gland, BPH, right foot drop, history of DVT and PE on Xarelto presents with chest pain. Chest pain Non-ST elevated AK Pain more when lying flat Received aspirin morphine in the ER and currently pain improved Initial troponin is 866 we will follow repeat troponin Patient is already on Xarelto. We will continue with aspirin We will follow serial cardiac enzymes, echo Monitor on telemetry We will keep him n.p.o. Cardiac consult in a.m. History of dyslipidemia We will follow lipid profile History of complete AV block status post pacemaker History of BPH On Flomax and Proscar History of DVT and PE On Xarelto DVT prophylaxis on Xarelto Disposition monitor on telemetry Full code History of Present Illness Chief Complaint: Chest pain Primary Care Provider: Nano Sanchez MD 82-year-old male with past medical significant for hyperlipidemia, lung nodule, complete AV block s/p pacemaker, benign neoplasm of pituitary gland, BPH, right foot drop, history of DVT and PE on Xarelto presents with chest pain. Patient states since his last night he had severe chest pain in the upper part of the chest. Radiated into the back. It was constant pain. Morning he had sweating. He has some dizziness when standing. No shortness of breath. No nausea. In the ER received aspirin morphine and currently pain is better. He says when he is laying down the pain is more. No cough. Afebrile. Has some runny nose. No blurred visions. No earache. No difficulty swallowing. Appetite is okay. No abdominal pain. Normal bowel and bladder movements. Ambulates with a walker. Currently resting comfortably and hemodynamically stable. Family in the room. 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 GERD (gastroesophageal reflux disease) Heart block, AV First degree, several periods of third degree block (asymptomatic), identified during acute presentation with obstructive cholelithiasis, s/p ERCP and stent placement. Treated with temporary transvenous pacemaker to allow for cholecystectomy, then transitioned to dual-chamber pacer (Medtronic) 12/05/18. History of skin cancer Hypercoagulable state Kidney stones Left femoral vein DVT PE/DVT 07/2018 Lung nodule Osteoarthritis Pacemaker Implanted 12/05/18. [employer]tronic. Follows with Dr. Alarcon. Pituitary tumor Pituitary macroadenoma - dx in 2008 Poor historian Pulmonary embolism DX 07/2018 Skin cancer Surgical History History of appendectomy History of cholecystectomy 12/03/18 History of cystoscopy History of ERCP 12/01/18. MAC #3, ETT 7.5 GV I atraumatic x 1 DL. "Matt/pauses/possible 3rd degree heart block. Atropine 0.4mg IV administered. External pacemaker applied with rate 70bpm. Pt responded well. BP maintained WNL throughout. MDA aware. Pacer straps on chest." History of hernia repair History of hip surgery ORIF fracture of right acetabulum in 2016 History of tonsillectomy History of tooth extraction Hx of right knee surgery ORIF right patella fracture Family History (Updated 01/09/23 @ 21:28 by Dillan Manley MD) Grandmother (Maternal) Diabetes Other No significant family history Social History Smoking Status: Never smoker Second Hand Exposure: No; Do You Dip or Chew Tobacco: No (QUIT MANY YEARS AGO); Hx Alcohol Use: Yes Alcohol type: beer Hx Substance Use: No Preferred Language: Bangladeshi Communication Ability: Effective Visual Impairment: No Limitations Assembly Machine Feeder Required: No Beliefs That Will Affect Care: None Current Living Situation: Alone Current Living Situation Comment: lives w gf Feels Safe at Home: Yes Assistive Devices: None and Walker Review of Systems Review of Systems: All systems reviewed & are unremarkable except as noted in Subjective Physical Exam Physical Exam: General- Not in distress Head- atraumatic Eyes- PERRL ENT- oropharynx clear Neck- supple, no JVD Lungs- clear to auscultation and percussion no added sounds Heart- regular rate and rhythm; no murmur, no gallop Abdomen- normal bowel sounds, soft, nontender, no distension. Extremities- no pretibial edema, no erythema seen Neuro- alert, oriented x 3; PERRL,no facial palsy; no dysarthria;moves extremities Skin- warm & dry Results & Data Results & Data Vital Signs (Past 12 Hours) Vital Signs Temp Pulse Resp BP Pulse Ox O2 Del Method 01/09/23 18:56 61 01/09/23 18:55 66 01/09/23 18:46 98 Room Air 01/09/23 18:14 36.5 C 64 16 138/78 98 Room Air Diagnostic Findings Laboratory Results WBC 6.60 K/ul (4.8-10.8) 01/09/23 18:30 RBC 4.99 M/uL (4.70-6.10) 01/09/23 18:30 Hgb 16.0 g/dl (14.0-18.0) 01/09/23 18:30 Hct 45.2 % (42.0-52.0) 01/09/23 18:30 MCV 90.6 fL (80.0-100.0) 01/09/23 18:30 MCH 32.1 pg (25.0-34.0) 01/09/23 18:30 MCHC 35.4 g/dL (32.0-36.0) 01/09/23 18:30 RDW Std Deviation 42.5 fL (36.4-46.3) 01/09/23 18:30 RDW Coeff of Kal 13.0 % (11.5-14.5) 01/09/23 18:30 Plt Count 195 K/uL (130-400) 01/09/23 18:30 MPV 10.0 fL (9.4-12.4) 01/09/23 18:30 Immature Gran % (Auto) 0.6 % 01/09/23 18:30 Neut % (Auto) 62.1 % 01/09/23 18:30 Lymph % (Auto) 25.6 % 01/09/23 18:30 [place] % (Auto) 7.9 % 01/09/23 18:30 Eos % (Auto) 2.9 % 01/09/23 18:30 Baso % (Auto) 0.9 % 01/09/23 18:30 Neut # (Auto) 4.10 K/uL (1.40-6.50) 01/09/23 18:30 Lymph # (Auto) 1.69 K/uL (1.2-3.4) 01/09/23 18:30 [place] # (Auto) 0.52 K/uL (0.11-0.59) 01/09/23 18:30 Eos # (Auto) 0.19 K/uL (0-0.50) 01/09/23 18:30 Baso # (Auto) 0.06 K/uL (0-0.2) 01/09/23 18:30 Immature Gran # (Auto) 0.04 K/uL (0.01-0.20) 01/09/23 18:30 PT 15.7 Seconds (9.0-12.0) H 01/09/23 18:30 INR 1.5 (0.9-1.1) H 01/09/23 18:30 APTT 43.5 Seconds (21.0-31.0) H* 01/09/23 18:30 PTT Ratio 1.5 01/09/23 18:30 Sodium 138 mmol/L (136-145) 01/09/23 18:30 Potassium 4.1 mmol/L (3.5-5.1) 01/09/23 18:30 Chloride 105 mmol/L (98-107) 01/09/23 18:30 Carbon Dioxide 24 mmol/L (21-32) 01/09/23 18:30 Anion Gap 9 (3-11) 01/09/23 18:30 BUN 13 mg/dl (6-23) 01/09/23 18:30 Creatinine 0.96 mg/dl (0.6-1.4) 01/09/23 18:30 Est Cr Clr Drug Dosing Not Reportable 01/09/23 18:30 Est GFR ( Amer) 83.8 ml/min 01/09/23 18:30 Est GFR (Non-Af Amer) 72.3 ml/min 01/09/23 18:30 BUN/Creatinine Ratio 13.5 (10-20) 01/09/23 18:30 Glucose 99 mg/dl (70-99(Fasting)) 01/09/23 18:30 Calcium 9.3 mg/dl (8.6-10.3) 01/09/23 18:30 Total Bilirubin 1.0 mg/dl (0.2-1.0) 01/09/23 18:30 AST 23 U/L (13-39) 01/09/23 18:30 ALT 20 U/L (7-52) 01/09/23 18:30 Alkaline Phosphatase 56 U/L (34-104) 01/09/23 18:30 Troponin I High Sens 866.9 pg/ml (0-20) H* 01/09/23 18:30 Total Protein 6.7 gm/dl (6.0-8.3) 01/09/23 18:30 Albumin 4.1 gm/dl (3.4-5.0) 01/09/23 18:30 Globulin 2.6 gm/dl (2.5-4.0) 01/09/23 18:30 Albumin/Globulin Ratio 1.6 (0.9-2) 01/09/23 18:30 ECG Additional Comments: ECG ventricular paced rhythm with frequent AV dual placed complexes with a rate of 60 Code Status & VTE Plan VTE Prophylaxis Plan VTE Prophylaxis will be ordered: Yes
[2023-01-09] MEDS ORDERED: MoRPHine SULFATE 2 MG/ML CARP IV PRN (21:41)
[2023-01-09] MEDS ORDERED: ACETAMINOPHEN 325 MG TAB PO PRN (21:41)
[2023-01-09] MEDS ORDERED: POLYETHYLENE (MIRALAX) 17 GM PACK PO PRN (21:41)
[2023-01-09] MEDS ORDERED: NITROGLYCERIN SL 0.4 MG/TAB TAB SL PRN (21:41)
[2023-01-09] MEDS ORDERED: Patient's HEIGHT &/or WEIGHT Needed STA (22:07)
[2023-01-09] MEDS: RIVAROXABAN 20 MG TAB PO SCH (23:49)
[2023-01-10 06:53] LABS: Basophils # (auto) 0.05 K/uL (0-0.2); Basophils % (auto) 0.9 %; Eosinophils # (auto) 0.26 K/uL (0-0.50); Eosinophils % (auto) 4.4 %; Hemoglobin 15.1 g/dl (14.0-18.0); Immature Granulocytes # (auto) 0.02 K/uL (0.01-0.20); Immature Granulocytes % (auto) 0.3 %; Lymphocytes # (auto) 2.13 K/uL (1.2-3.4); Lymphocytes % (auto) 36.3 %; Mean Corpuscular Hemoglobin 32.8 pg (25.0-34.0); Mean Corpuscular Hgb Conc 35.1 g/dL (32.0-36.0); Mean Corpuscular Volume 93.5 fL (80.0-100.0); Mean Platelet Volume 10.2 fL (9.4-12.4); Monocytes # (auto) 0.46 K/uL (0.11-0.59); Monocytes % (auto) 7.8 %; Neutrophils # (auto) 2.94 K/uL (1.40-6.50); Neutrophils % (auto) 50.3 %; Platelet Count 181 K/uL (130-400); RDW Standard Deviation 44.4 fL (36.4-46.3); White Blood Count 5.86 K/ul (4.8-10.8)
[2023-01-10 07:04] LABS: BUN Creatinine Ratio 12.5 (10-20); Calcium 8.7 mg/dl (8.6-10.3); Chol HDL Ratio 3.7 (0-5); Creatinine Clr Calc Pharmacy 59.3 ml/min; Est GFR (African American) 83.8 ml/min; Est GFR (Non-African American) 72.3 ml/min; Magnesium 2.2 mg/dl (1.7-2.4); Potassium 3.9 mmol/L (3.5-5.1)
[2023-01-10 07:22] LABS: Troponin I High Sensitivity 2347.3 pg/ml (0-20)
--- NOTE | 2023-01-10 07:32 | XRay Report ---
XR chest 1V not portable CLINICAL HISTORY: Chest pain, nonspecific COMPARISON STUDY: Chest CT August 12, 2018. Chest radiograph December 06, 2018. FINDINGS: Left subclavian pacer is in place. Cardiomediastinal silhouette is stable. There is no pneu mothorax or pleural effusion. No consolidation is identified to suggest pneumonia. There is no eviden ce for pulmonary edema. Low lung volumes are again noted with bibasilar densities suggestive of atele ctasis. IMPRESSION: No acute cardiopulmonary findings. No change in appearance of the chest. ACT 112: Negative or not required by law. Electronically signed by: Skyler Brothers M.D. 01/10/2023 7:30 AM
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
[2023-01-10] MEDS: ASPIRIN 81 MG ECTAB PO SCH (09:59)
[2023-01-10] MEDS: TAMSULOSIN HCL 0.4 MG CAP PO SCH (09:59)
[2023-01-10] MEDS: FINASTERIDE 5 MG TAB PO SCH (09:59)
[2023-01-10] MEDS: METOPROLOL TARTRATE 25 MG TAB PO SCH ×2 (10:00→21:12)
[2023-01-10] MEDS ORDERED: LIDOCAINE 1% LOCAL 20 ML VIAL ONE (10:16)
[2023-01-10] MEDS: ATORVASTATIN 40 MG TAB PO SCH (11:18)
--- NOTE | 2023-01-10 13:27 | Pre Anesthesia Assessment ---
Date of Service January 10, 2023 Pre Sedation Assessment Vital Signs Temp Pulse Pulse Resp BP BP Pulse Ox 01/10/23 13:14 62 16 107/68 93 01/10/23 12:52 60 16 101/65 94 01/10/23 10:04 68 16 123/70 95 01/10/23 07:03 61 01/10/23 05:30 66 20 100/72 95 01/10/23 04:00 60 14 105/67 95 01/10/23 05:34 01/10/23 03:00 60 16 111/69 96 01/10/23 02:32 01/09/23 18:56 61 01/09/23 18:55 66 01/09/23 18:46 98 01/09/23 18:14 97.7 F 64 16 138/78 98 Pulse Ox O2 Del Method O2 Del Method O2 Flow Rate O2 Flow Rate 01/10/23 13:14 Room Air 01/10/23 12:52 Nasal Cannula 2 01/10/23 10:04 Nasal Cannula 2 01/10/23 07:03 01/10/23 05:30 Nasal Cannula 2 01/10/23 04:00 Nasal Cannula 2 01/10/23 05:34 Nasal Cannula 2 01/10/23 03:00 Nasal Cannula 2 01/10/23 02:32 95 Nasal Cannula 2 01/09/23 18:56 01/09/23 18:55 01/09/23 18:46 Room Air 01/09/23 18:14 Room Air Cardiovascular RRR, no murmur, no edema Respiratory normal respiratory effort, lungs clear to auscultation Pre-Sedation Airway Assessment Smoking Status: Never smoker Hx Sleep Apnea: No Hx Difficult Intubation: No Short, Thick Neck: No Thyromental Distance: > or= 3.5 Finger Breadths Oral Cavity: + WNL Mallampati Class: II ASA: ASA3 NPO Status Date of Last Intake of Fluids: 01/09/23 Time of Last Intake of Fluids: 22:00 Date of Last Intake of Solid Food: 01/09/23 Time of Last Intake of Solid Foods: 22:00 Procedure Planning Contraindications for Sedation: none Current Medications Reviewed: Yes Notes The planned sedation has been discussed with the patient. Informed Consent was obtained. I have identified the patient, determined the appropriateness of sedation and have assessed the patient immediately prior to the procedure. All medicine(s) and interventions are by my order.
[2023-01-10] MEDS ORDERED: MIDAZOLAM HCL 1 MG/ML 2ML VIAL ONE (13:28)
[2023-01-10] MEDS ORDERED: HEPARIN (PORCINE) 1000 UNIT/ML 10 ML (CATH LAB USE ONLY) ONE (13:28)
[2023-01-10] MEDS ORDERED: niCARdipine HCL INJ 2.5 MG/ML 10 ML AMP ONE (13:28)
[2023-01-10] MEDS ORDERED: NITROGLYCERIN/D5W 100MCG/ML 20ML SYR ONE (13:29)
[2023-01-10] MEDS ORDERED: fentaNYL citrate PF 100 MCG/2 ML VIAL ONE (13:29)
[2023-01-10] MEDS ORDERED: DOPamine 400MG / 250ML D5W (Cath Lab Use ONLY) IV ONE (13:47)
[2023-01-10] MEDS ORDERED: NOREPINEPHRINE BITARTRATE 1 MG/ML 4 ML VIAL (CATH LAB USE ONLY) IV ONE (13:48)
[2023-01-10] MEDS ORDERED: CLOPIDOGREL BISULFATE 300 MG TAB ONE (14:31)
--- NOTE | 2023-01-10 16:26 | Hospitalist Progress Note ---
Date of Service January 10, 2023 Assessment & Plan (1) Chest pain: Plan: 82-year-old male with past medical significant for hyperlipidemia, lung nodule, complete AV block s/p pacemaker, benign neoplasm of pituitary gland, BPH, right foot drop, history of DVT and PE on Xarelto presents with chest pain. Chest pain Non-ST elevated NV Pain more when lying flat Initial troponin is 866 and the serial troponin went even higher up to 2343.3 Patient is already on Xarelto. We will continue with aspirin Echo of the heart showed LV systolic function is moderately reduced with EF 30 to 35%, there is large sized apical, septal, anteroseptal and anterior wall motion abnormality with hypokinesis to dyskinesis of the segments and aortic valve sclerosis mild without stenosis Appreciate cardiology input and recommendation Status post cardiac cath and placement of drug-eluting stent in S GI/ vessel He has been doing much better following the procedure and denies any symptoms We will monitor in the telemetry unit and likely discharge tomorrow History of dyslipidemia We will follow lipid profile History of complete AV block status post pacemaker History of BPH On Flomax and Proscar History of DVT and PE On Xarelto DVT prophylaxis on Xarelto Disposition monitor on telemetry Full code Admission and Anticipated Discharge Date Admission Date: January 09, 2023 Subjective 01/10/2023 The patient was seen and examined in telemetry unit He was admitted with non-ST NV and underwent cardiac cath He has been feeling much better and denies any chest pain, shortness of breath, palpitation He wants to have food Review of Systems Review of Systems: All systems reviewed and are unremarkable except as noted below Physical Exam Physical Exam: Lying in bed comfortably Constitutional: well developed, well nourished and average body habitus; not ill appearing Eyes: PERRL, conjunctivae normal, anicteric sclerae ENMT: external ear and nose normal, oropharynx normal Neck: trachea midline, no thyromegaly Respiratory: no respiratory distress Auscultation: lungs clear to auscultation bilaterally Cardiovascular: Rate/Rhythm: regular rate and regular rhythm; not tachycardic Heart Sounds: normal S1 and normal S2; no murmur Extremities: no edema Gastrointestinal (Abdomen): Inspection/Auscultation: normal bowel sounds; abdomen not distended Percussion/Palpation: abdomen soft; abdomen nontender Musculoskeletal: No acute arthritis involving any of the joint but has right ankle deformity secondary to past injury Neurologic: Alert, awake and oriented x3. No focal sensory or no motor deficit appreciated Psychiatric: A+Ox3, euthymic affect Lymphatic: no cervical or axillary lymphadenopathy Results & Data Results & Data Vital Signs (Past 12 Hours) Vital Signs Temp Pulse Pulse Resp BP BP Pulse Ox 01/10/23 15:35 36.8 C 90 18 111/67 01/10/23 15:20 36.6 C 63 16 124/78 91 01/10/23 15:00 70 18 122/74 94 01/10/23 14:43 68 18 120/73 94 01/10/23 13:14 62 16 107/68 93 01/10/23 12:52 60 16 101/65 94 01/10/23 10:04 68 16 123/70 95 01/10/23 07:03 61 01/10/23 05:30 66 20 100/72 95 01/10/23 05:34 O2 Del Method O2 Flow Rate 01/10/23 15:35 Room Air 01/10/23 15:20 Room Air 01/10/23 15:00 Room Air 01/10/23 14:43 Room Air 01/10/23 13:14 Room Air 01/10/23 12:52 Nasal Cannula 2 01/10/23 10:04 Nasal Cannula 2 01/10/23 07:03 01/10/23 05:30 Nasal Cannula 2 01/10/23 05:34 Nasal Cannula 2 Laboratory Results Short CBC 01/09/23 01/10/23 Range/Units 18:30 05:42 WBC 6.60 5.86 (4.8-10.8) K/ul Hgb 16.0 15.1 (14.0-18.0) g/dl Hct 45.2 43.0 (42.0-52.0) % Plt Count 195 181 (130-400) K/uL BMP 01/09/23 01/10/23 18:30 05:42 Sodium 138 140 Potassium 4.1 3.9 Chloride 105 107 Carbon Dioxide 24 28 BUN 13 12 Creatinine 0.96 0.96 Glucose 99 79 Calcium 9.3 8.7 Liver Function 01/09/23 Range/Units 18:30 Total Bilirubin 1.0 (0.2-1.0) mg/dl AST 23 (13-39) U/L ALT 20 (7-52) U/L Alkaline Phosphatase 56 (34-104) U/L Albumin 4.1 (3.4-5.0) gm/dl Medications Administered Current Inpatient Medications Acetaminophen (Acetaminophen 325 Mg Tab) 650 mg PO Q4H PRN PRN Reason: Pain or Fever Stop: 02/08/23 21:40 Aspirin (Aspirin 81 Mg Ectab) [address] [facility] Stop: 02/09/23 08:59 Last Admin: 01/10/23 09:59 Dose: 81 mg Atorvastatin Calcium ([facility]atin 40 Mg Tab) [facility] Stop: 02/09/23 09:44 Last Admin: 01/10/23 11:18 Dose: 80 mg Docusate Sodium (Docusate Sodium 100 Mg Cap) 100 mg PO BID [facility] Stop: 02/09/23 12:14 Finasteride (Finasteride 5 Mg Tab) [facility] Stop: 02/09/23 08:59 Last Admin: 01/10/23 09:59 Dose: 5 mg Metoprolol Tartrate (Metoprolol Tartrate 25 Mg Tab) 12.5 mg PO BID [facility] Stop: 02/09/23 09:44 Last Admin: 01/10/23 10:00 Dose: 12.5 mg Morphine Sulfate (Morphine Sulfate 2 Mg/Ml Carp) 2 mg IV Q30M PRN PRN Reason: Chest Pain Stop: 01/23/23 21:40 Nitroglycerin (Nitroglycerin Sl 0.4 Mg/Tab Tab) 0.4 mg SL Q5M PRN PRN Reason: Chest Pain Stop: 02/08/23 21:40 Polyethylene Glycol (Polyethylene (Miralax) 17 Gm Pack) 17 gm PO DAILY PRN PRN Reason: Constipation Stop: 02/08/23 21:40 Rivaroxaban (Rivaroxaban 20 Mg Tab) 20 mg PO QDD [facility] Stop: 02/08/23 21:40 Last Admin: 01/09/23 23:49 Dose: 20 mg Tamsulosin HCl (Tamsulosin Hcl 0.4 Mg Cap) 0.4 mg PO QAM [facility] Stop: 02/09/23 08:59 Last Admin: 01/10/23 09:59 Dose: 0.4 mg
--- NOTE | 2023-01-10 17:06 | Post Anesthesia Assessment ---
Date of Service January 10, 2023 Post Sedation Assessment Vital Signs Temp Pulse Pulse Resp BP BP Pulse Ox 01/10/23 15:35 98.2 F 90 18 111/67 01/10/23 15:20 97.9 F 63 16 124/78 91 01/10/23 15:00 70 18 122/74 94 01/10/23 14:43 68 18 120/73 94 01/10/23 13:14 62 16 107/68 93 01/10/23 12:52 60 16 101/65 94 01/10/23 10:04 68 16 123/70 95 01/10/23 07:03 61 01/10/23 05:30 66 20 100/72 95 01/10/23 04:00 60 14 105/67 95 01/10/23 05:34 01/10/23 03:00 60 16 111/69 96 01/10/23 02:32 01/09/23 18:56 61 01/09/23 18:55 66 01/09/23 18:46 98 01/09/23 18:14 97.7 F 64 16 138/78 98 Pulse Ox O2 Del Method O2 Del Method O2 Flow Rate O2 Flow Rate 01/10/23 15:35 Room Air 01/10/23 15:20 Room Air 01/10/23 15:00 Room Air 01/10/23 14:43 Room Air 01/10/23 13:14 Room Air 01/10/23 12:52 Nasal Cannula 2 01/10/23 10:04 Nasal Cannula 2 01/10/23 07:03 01/10/23 05:30 Nasal Cannula 2 01/10/23 04:00 Nasal Cannula 2 01/10/23 05:34 Nasal Cannula 2 01/10/23 03:00 Nasal Cannula 2 01/10/23 02:32 95 Nasal Cannula 2 01/09/23 18:56 01/09/23 18:55 01/09/23 18:46 Room Air 01/09/23 18:14 Room Air Recovery Score Activity: Moves 4 extremities Respiration: Deep Breath/Cough Circulation: +/-20% PreAnes Value Consciousness: Fully Awake Oxygen Saturation: > 92% On Room Air Post Anesthesia Score: 10 Discharge Sedation Level of Care: Fast Track Phase II Post Sedation Plan On clinical assessment, the patient appears to have tolerated the sedation without complications. Patient is recovering as anticipated. Patient will continue to be monitored by nursing and may be discharged when sedation discharge criteria are met per below protocol. Upon Completions of procedure up to 15 minutes continue every 5 minute vital signs and the P.A.R. score; then discharge to a Phase I or Fast Track to Phase II per the following guidelines: * Discharge Patient to appropriate Phase II area if PAR is 8 or greater or return to pre- procedure baseline. The post - procedure orders will be as directed. * If PAR score is less than 8 or not return to pre-procedure baseline then patient will follow Phase I monitoring till PAR is reached for Phase II. The Phase I may be done in procedure room or may call to secure a Phase I area. * If naloxone or flumazenil are used for reversal, hold in Phase I for continued monitoring from when last reversal dose was given for a minimum of 60 minutes or longer pending the nurse and/or physician discretion of patient condition before discharge to Phase II. Please call the Sedation Physician to re-evaluate and complete post-note for discharge to Phase II area. Do NOT discharge from procedure sedation or Phase 1 until post- sedation evaluation note is complete by procedure /sedation MD Sedation Discharge Instructions to be given to the patient at discharge to home.
--- NOTE | 2023-01-10 17:25 | Cardiac Catheterization ---
[facility] Data: Teletype Mechanic Cardiac Status Clinical evaluation leading to the procedure CAD Presenation: Non STEMI Anginal Classification: CCS IV Diagnostic Physicians Name: Tesfaye Joshi MD Closure Device Recommendations: PCI without planned CABG Cardiac Cath Procedure Full Procedure Date January 10, 2023 Pre-Procedure Diagnosis Pre-Procedure Diagnosis: Non STEMI AUC Score AUC Score: 8 Post-Procedure Diagnosis Post-Procedure Diagnosis: Severe CAD, Successful PCI and Normal Intracardiac Pressures Procedure(s) Performed Procedure(s) Performed: Coronary Angiography, Left Heart Cath, Drug Eluting Stent and IVUS Foaming Machine Operator Tesfaye Joshi MD Desktop Architect(s) Patternmaker Estimated Blood Loss Estimated Blood Loss: 15 Medication(s) Medication(s): Clopidogrel, Fentanyl, Heparin, Lidocaine 1%, Nicardipine, Nitroglycerin and Versed Summary of Findings Indication: High risk NSTEMI Access: 6 Fr right radial artery Catheters: [place], diagnostic JR4, EBU 3.5 guide Findings: LM -normal caliber, 30% proximal stenosis LAD -medium caliber, 98% acute proximal stenosis at takeoff of small D1. Remainder of vessel without significant disease but AYANNA I flow and tapers prior to apex. Circumflex -large caliber 30% ostial 30% mid segment stenosis. OM1 appears occluded at ostium.. Large OM 2 without significant disease. RCA -dominant, large caliber, mid segment ectatic but no significant stenotic disease. LVEDP -2 -- PCI -- Antithrombotic therapy: Heparin, clopidogrel Procedure: Left main cannulated with EBU 3.5 guide Pre-procedure flow AYANNA 1 Industrial Equipment Mechanic 50 wire passed across lesion into distal vessel Whisper wire placed into D1 Proximal LAD lesion predilated with 2.5 compliant balloon Blokify IVUS catheter placed in the mid LAD. Pullback revealed mildly calcified proximal disease. Eccentric 40% calcified plaque at LAD ostium. Proximal left main with mild calcified proximal disease. Dilated lesion stented with 3.0 x 15 mm Xience drug-eluting stent extending from ostium across D1. Stent post-dilated with 3.5 noncompliant balloon Repeat IVUS showed well-expanded, well apposed stent with no apparent proximal edge complications. Post procedure AYANNA 3 flow, stent well expanded with minimal residual stenosis and no apparent cardiac complications. With initial sedation/angiography patient hypotensive to systolic pressures in the 60s. Required IVF bolus and norepinephrine. Vasopressor requirement improved with reestablish flow in LAD. Norepinephrine weaned off by completion of procedure. Arterial Closure: TR band Summary: 1. Acute 98% proximal LAD with AYANNA I distal flow 2. Severe nonculprit CAD. occluded OM1 3. Low intracardiac filling pressures 4. Transient hypotension/cardiogenic shock requiring vasopressors 5. Successful PCI of proximal LAD with single drug-eluting stent (3.0 x 15 mm Xience; postdilated with 3.5 NC). Recommendations: To PCU for continued monitoring Loaded with clopidogrel 600 mg in Teletype Mechanic Resume Xarelto tomorrow. Triple therapy while admitted. On discharge dual therapy with clopidogrel/rivaroxaban for 1 year Statin, and ASCVD risk factor modification Consult cardiac Rehab Hemodynamics Rest Ao:: 77/45/57 Final Ao: 132/69/100 LV: 71/2 Recommendations Recommendations: PCI without planned CABG Specimens Specimens: None Radiation Exposure (mGy) 1891 Contrast (mls) 95 Anesthesia Moderate 6926-8827 Procedural Complication(s) None Disposition PCU I attest to the content of the Intraoperative Record and any orders documented therein. Any exceptions are noted below. [facility] Card Cath Procedure Codes Cardiac Catheterization Procedure 1: Cardiovascular Cath Procedures: 28859 Coronaries and LHC (+/-LV) Therapeutic Services & Ancillary Procedure 1: Cardiovascular Tx and Anc Procedures: 46663 IV Ultrasound (Coronary or Graft) Moderate Sedation Procedure 1: Sedation/Anesthesia: 75082 Mod Sedation by the same physician;Init15 Min Child Age 5 & Up Procedure 2: Sedation/Anesthesia: 42410 Mod Sedation by the same physician; Ea [id number] Minutes Stenting Procedure 1: Cardiovascular Stent Procedures: 06282 Perc transluminal revascularization of acute sub/total occl, aMI PG Care Time/CCT Total # of Minutes Spent Total Time Spent with Patient: Total time spent is greater than 50% in coordination of care (as documented) at patient's floor/unit and/or counseling patient:
[2023-01-10] MEDS: DOCUSATE SODIUM 100 MG CAP PO SCH ×2 (17:26→20:46)
[2023-01-11 07:11] LABS: Basophils # (auto) 0.04 K/uL (0-0.2); Basophils % (auto) 0.3 %; Eosinophils # (auto) 0.03 K/uL (0-0.50); Eosinophils % (auto) 0.2 %; Hematocrit (blood only) 43.8 % (42.0-52.0); Hemoglobin 15.5 g/dl (14.0-18.0); Immature Granulocytes # (auto) 0.09 K/uL (0.01-0.20); Immature Granulocytes % (auto) 0.7 %; Lymphocytes # (auto) 0.77 K/uL (1.2-3.4); Mean Corpuscular Hemoglobin 32.6 pg (25.0-34.0); Mean Corpuscular Hgb Conc 35.4 g/dL (32.0-36.0); Mean Platelet Volume 10.2 fL (9.4-12.4); Monocytes # (auto) 0.87 K/uL (0.11-0.59); Monocytes % (auto) 6.7 %; Neutrophils # (auto) 11.14 K/uL (1.40-6.50); Neutrophils % (auto) 86.1 %; Platelet Count 175 K/uL (130-400); RDW Coefficient of Variation 13.2 % (11.5-14.5); RDW Standard Deviation 45.2 fL (36.4-46.3); Red Blood Count 4.76 M/uL (4.70-6.10); White Blood Count 12.94 K/ul (4.8-10.8)
[2023-01-11 07:35] LABS: BUN Creatinine Ratio 18.9 (10-20); Calcium 8.8 mg/dl (8.6-10.3); Creatinine Clr Calc Pharmacy 53.1 ml/min; Est GFR (African American) 74.3 ml/min; Est GFR (Non-African American) 64.1 ml/min; Potassium 4.3 mmol/L (3.5-5.1)
[2023-01-11] MEDS ORDERED: SODIUM CHLORIDE 0.9% 1000ML 500 ML IV ONE (07:52)
[2023-01-11] MEDS: ASPIRIN 81 MG ECTAB PO SCH (09:28)
[2023-01-11] MEDS: CLOPIDOGREL BISULFATE 75 MG TAB PO SCH (09:28)
[2023-01-11] MEDS: DOCUSATE SODIUM 100 MG CAP PO SCH ×2 (09:28→21:10)
[2023-01-11] MEDS: ATORVASTATIN 40 MG TAB PO SCH (09:28)
[2023-01-11] MEDS: TAMSULOSIN HCL 0.4 MG CAP PO SCH (09:29)
[2023-01-11] MEDS: METOPROLOL TARTRATE 25 MG TAB PO SCH ×2 (09:29→19:47)
[2023-01-11] MEDS: FINASTERIDE 5 MG TAB PO SCH (13:25)
--- NOTE | 2023-01-11 13:35 | Cardiology Progress Note ---
Date of Service January 11, 2023 Assessment & Plan (1) Non-ST elevation (NSTEMI) myocardial infarction: (2) Ischemic cardiomyopathy: Plan 82-year-old patient presents emergency department with chest pain, NSTEMI, echocardiographic evidence of anterior, apical, and septal wall motion abnormality. Moderate LV systolic dysfunction noted (LVEF 30-35%). Compensated today. Cardiac catheterization demonstrating severe proximal LAD stenosis status post successful drug-eluting stent implantation. Patient chronically anticoagulated with Xarelto due to history of atrial fibrillation. Continue aspirin, clopidogrel, and Xarelto during admission. Transition to clopidogrel plus Xarelto at time of discharge. Continue low-dose beta-jeaneth and statin therapy. Unable to add JENIFER inhibitor, ARB, Entresto, or Aldactone at this time due to intermittent hypotension. Admission and Anticipated Discharge Date Admission Date: January 09, 2023 Subjective Patient seen examined the bedside. Denies recurrent chest discomfort. No shortness of breath at rest. Telemetry reveals atrial fibrillation with a ventricular paced rhythm. Heart rate ranging 60-80's BPM. No orthopnea, PND, or edema. Tolerating current medications. Intermittent hypotension noted without associated symptoms. Review of Systems Review of Systems: All systems reviewed & are unremarkable except as noted in Subjective Physical Exam Constitutional: well nourished; no acute distress Respiratory: no respiratory distress, no labored breathing and no retractions Auscultation: no crackles, no rales, no rhonchi and no wheezes Cardiovascular: Rate/Rhythm: regular rate and regular rhythm Heart Sounds: normal S1 and normal S2; no murmur Vessels: femoral pulses present and radial pulses present; no JVD and no carotid bruit Extremities: no edema Gastrointestinal (Abdomen): Inspection/Auscultation: normal bowel sounds; abdomen not distended Percussion/Palpation: abdomen soft; abdomen nontender, no guarding and abdomen not rigid Neurologic: CN's II-XI intact bilaterally and moves all extremities Psychiatric: A+Ox3, euthymic affect Results & Data Vital Signs (Past 12 Hours) Vital Signs Temp Pulse Pulse Resp BP Pulse Ox O2 Del Method 01/11/23 11:27 36.4 C L 62 19 90/50 L 92 Room Air 01/11/23 09:00 60 01/11/23 09:27 59 L 91/47 L 01/11/23 07:31 36.9 C 94 H 18 73/43 L 91 Room Air 01/11/23 03:00 36.4 C L 84 18 95/57 L 91 Room Air Laboratory Results Cardiac Enzymes 01/10/23 Range/Units 16:44 Troponin I High Sens 2498.1 H* D (0-20) pg/ml CBC 01/11/23 Range/Units 06:28 WBC 12.94 H (4.8-10.8) K/ul RBC 4.76 (4.70-6.10) M/uL Hgb 15.5 (14.0-18.0) g/dl Hct 43.8 (42.0-52.0) % Plt Count 175 (130-400) K/uL Neut # (Auto) 11.14 H (1.40-6.50) K/uL Lymph # (Auto) 0.77 L (1.2-3.4) K/uL [place] # (Auto) 0.87 H (0.11-0.59) K/uL Eos # (Auto) 0.03 (0-0.50) K/uL Baso # (Auto) 0.04 (0-0.2) K/uL Comprehensive Metabolic Panel 01/11/23 Range/Units 06:28 Sodium 139 (136-145) mmol/L Potassium 4.3 (3.5-5.1) mmol/L Chloride 106 (98-107) mmol/L Carbon Dioxide 27 (21-32) mmol/L BUN 20 (6-23) mg/dl Creatinine 1.06 (0.6-1.4) mg/dl Glucose 91 (70-99(Fasting)) mg/dl Calcium 8.8 (8.6-10.3) mg/dl Intake and Output 01/10/23 01/11/23 01/11/23 22:59 06:59 14:59 Intake Total 500 / 500 Output Total 325 / 600 275 / 600 Balance -325 / -600 -275 / -600 499 / 499 Intake: IV 500 / 500 Sodium Chloride 0.9% 1000ML 500 500 / 500 ml @ 999 mls/hr IV .Q31M [facility] Rx#:[id number] Output: Urine 325 / 600 275 / 600 # Bowel Movements Other: Weight 72.4 kg Weight Measurement Method Built in [facility]
--- NOTE | 2023-01-11 14:53 | Hospitalist Progress Note ---
Date of Service January 11, 2023 Assessment & Plan (1) Chest pain: Plan: 82-year-old male with past medical significant for hyperlipidemia, lung nodule, complete AV block s/p pacemaker, benign neoplasm of pituitary gland, BPH, right foot drop, history of DVT and PE on Xarelto presents with chest pain. Chest pain Non-ST elevated [place] Pain more when lying flat Initial troponin is 866 and the serial troponin went even higher up to 2343.3 Patient is already on Xarelto. We will continue with aspirin Echo of the heart showed LV systolic function is moderately reduced with EF 30 to 35%, there is large sized apical, septal, anteroseptal and anterior wall motion abnormality with hypokinesis to dyskinesis of the segments and aortic valve sclerosis mild without stenosis Appreciate cardiology input and recommendation Status post cardiac cath and placement of drug-eluting stent in S GI/ vessel He has been doing much better following the procedure and denies any symptoms Remains asymptomatic even though the blood pressure was noted to very low this morning and bradycardia He received 500 mL of normal saline bolus and the blood pressure improved up to systolic 90 Remains asymptomatic His Xarelto has been restarted and beta-jeaneth dose has been reduced by the investment banking associate Likely discharge tomorrow History of dyslipidemia We will follow lipid profile History of complete AV block status post pacemaker History of BPH On Flomax and Proscar History of DVT and PE On Xarelto DVT prophylaxis on Xarelto Disposition monitor on telemetry Full code Admission and Anticipated Discharge Date Admission Date: January 09, 2023 Subjective 01/10/2023 The patient was seen and examined in telemetry unit He was admitted with non-ST [place] and underwent cardiac cath He has been feeling much better and denies any chest pain, shortness of breath, palpitation He wants to have food 01/11/2023 The patient was seen and examined in telemetry unit He was noted to have very low blood pressure of systolic 70s early this morning without any symptoms Received 500 mL of NS bolus and the blood pressure went up to 90 systolic The patient feels better and wants to go home Review of Systems Review of Systems: All systems reviewed and are unremarkable except as noted below Physical Exam Physical Exam: Lying in bed comfortably Constitutional: well developed, well nourished and average body habitus; not ill appearing Eyes: PERRL, conjunctivae normal, anicteric sclerae ENMT: external ear and nose normal, oropharynx normal Neck: trachea midline, no thyromegaly Respiratory: no respiratory distress Auscultation: lungs clear to auscultation bilaterally Cardiovascular: Rate/Rhythm: regular rate and regular rhythm; not tachycardic Heart Sounds: normal S1 and normal S2; no murmur Extremities: no edema Gastrointestinal (Abdomen): Inspection/Auscultation: normal bowel sounds; abdomen not distended Percussion/Palpation: abdomen soft; abdomen nontender Musculoskeletal: All systems reviewed and are unremarkable except as noted below Neurologic: normal touch/pain/proprioception and moves all extremities; no focal motor deficits Psychiatric: A+Ox3, euthymic affect Lymphatic: no cervical or axillary lymphadenopathy Results & Data Results & Data Vital Signs (Past 12 Hours) Vital Signs Temp Pulse Pulse Resp BP Pulse Ox O2 Del Method 01/11/23 11:27 36.4 C L 62 19 90/50 L 92 Room Air 01/11/23 09:00 60 01/11/23 09:27 59 L 91/47 L 01/11/23 07:31 36.9 C 94 H 18 73/43 L 91 Room Air 01/11/23 03:00 36.4 C L 84 18 95/57 L 91 Room Air Laboratory Results Short CBC 01/11/23 Range/Units 06:28 WBC 12.94 H (4.8-10.8) K/ul Hgb 15.5 (14.0-18.0) g/dl Hct 43.8 (42.0-52.0) % Plt Count 175 (130-400) K/uL BMP 01/11/23 06:28 Sodium 139 Potassium 4.3 Chloride 106 Carbon Dioxide 27 BUN 20 Creatinine 1.06 Glucose 91 Calcium 8.8 Medications Administered Current Inpatient Medications Acetaminophen (Acetaminophen 325 Mg Tab) 650 mg PO Q4H PRN PRN Reason: Pain or Fever Stop: 02/08/23 21:40 Aspirin (Aspirin 81 Mg Ectab) 81 mg PO [facility] Stop: 02/09/23 08:59 Last Admin: 01/11/23 09:28 Dose: 81 mg Atorvastatin Calcium (Atorvastatin 40 Mg Tab) 80 mg PO [facility] Stop: 02/09/23 09:44 Last Admin: 01/11/23 09:28 Dose: 80 mg Clopidogrel Bisulfate (Clopidogrel Bisulfate 75 Mg Tab) 75 mg PO [facility] Stop: 02/10/23 08:59 Last Admin: 01/11/23 09:28 Dose: 75 mg Docusate Sodium (Docusate Sodium 100 Mg Cap) 100 mg PO BID [facility] Stop: 02/09/23 12:14 Last Admin: 01/11/23 09:28 Dose: 100 mg Finasteride (Finasteride 5 Mg Tab) 5 mg PO QAM [facility] Stop: 02/09/23 08:59 Last Admin: 01/11/23 13:25 Dose: 5 mg Metoprolol Tartrate (Metoprolol Tartrate 25 Mg Tab) 12.5 mg PO BID [facility] Stop: 02/09/23 09:44 Last Admin: 01/11/23 09:29 Dose: Not Given Morphine Sulfate (Morphine Sulfate 2 Mg/Ml Carp) 2 mg IV Q30M PRN PRN Reason: Chest Pain Stop: 01/23/23 21:40 Nitroglycerin (Nitroglycerin Sl 0.4 Mg/Tab Tab) 0.4 mg SL Q5M PRN PRN Reason: Chest Pain Stop: 02/08/23 21:40 Polyethylene Glycol (Polyethylene (Miralax) 17 Gm Pack) 17 gm PO DAILY PRN PRN Reason: Constipation Stop: 02/08/23 21:40 Rivaroxaban (Rivaroxaban 20 Mg Tab) 20 mg PO QDD [facility] Stop: 02/08/23 21:40 Last Admin: 01/09/23 23:49 Dose: 20 mg Tamsulosin HCl (Tamsulosin Hcl 0.4 Mg Cap) 0.4 mg PO QAM [facility] Stop: 02/09/23 08:59 Last Admin: 01/11/23 09:29 Dose: 0.4 mg
[2023-01-11] MEDS: RIVAROXABAN 20 MG TAB PO SCH (16:57)
--- NOTE | 2023-01-11 20:04 | Electrocardiogram Report ---
Test Reason : Blood Pressure : / mmHG Vent. Rate : 060 BPM Atrial Rate : 060 BPM P-R Int : 000 ms QRS Dur : 100 ms QT Int : 414 ms P-R-T Axes : 063 007 -43 degrees QTc Int : 414 ms AV dual-paced rhythm with occasional sinus complexes with 1st degree AV block Abnormal ECG When compared with ECG of 22-FEB-2019 07:25, AV pacing is now present Confirmed by Zev Robin ([id number]) on 01/11/2023 8:04:39 PM Referred By: REFERRED SELF Confirmed By:Zev Robin
--- NOTE | 2023-01-11 22:16 | Electrocardiogram Report ---
Test Reason : Blood Pressure : / mmHG Vent. Rate : 065 BPM Atrial Rate : 065 BPM P-R Int : 350 ms QRS Dur : 120 ms QT Int : 408 ms P-R-T Axes : 033 035 -69 degrees QTc Int : 424 ms Sinus rhythm with 1st degree A-V block Low voltage QRS Right bundle branch block Abnormal ECG When compared with ECG of 09-JAN-2023 18:23, Sinus rhythm has replaced Electronic ventricular pacemaker Confirmed by Zev Robin ([id number]) on 01/11/2023 10:16:11 PM Referred By: REFERRED SELF Confirmed By:Zev Robin
[2023-01-12] MEDS ORDERED: SODIUM CHLORIDE 0.9% 500 ML IV SCH (03:45)
[2023-01-12 06:06] LABS: Basophils # (auto) 0.04 K/uL (0-0.2); Basophils % (auto) 0.7 %; Eosinophils # (auto) 0.06 K/uL (0-0.50); Hemoglobin 14.6 g/dl (14.0-18.0); Immature Granulocytes # (auto) 0.03 K/uL (0.01-0.20); Immature Granulocytes % (auto) 0.5 %; Lymphocytes # (auto) 0.81 K/uL (1.2-3.4); Mean Corpuscular Hemoglobin 32.7 pg (25.0-34.0); Mean Corpuscular Hgb Conc 34.8 g/dL (32.0-36.0); Mean Corpuscular Volume 94.2 fL (80.0-100.0); Mean Platelet Volume 10.2 fL (9.4-12.4); Monocytes # (auto) 0.28 K/uL (0.11-0.59); Monocytes % (auto) 4.8 %; Neutrophils # (auto) 4.58 K/uL (1.40-6.50); Platelet Count 141 K/uL (130-400); RDW Coefficient of Variation 13.1 % (11.5-14.5); RDW Standard Deviation 44.9 fL (36.4-46.3); Red Blood Count 4.46 M/uL (4.70-6.10)
[2023-01-12 06:20] LABS: Magnesium 1.9 mg/dl (1.7-2.4)
--- NOTE | 2023-01-12 07:09 | Electrocardiogram Report ---
Test Reason : Blood Pressure : / mmHG Vent. Rate : 062 BPM Atrial Rate : 071 BPM P-R Int : 000 ms QRS Dur : 146 ms QT Int : 424 ms P-R-T Axes : 040 026 242 degrees QTc Int : 430 ms Demand atrial and ventriclar pacing Right bundle branch block T wave abnormality, consider inferolateral ischemia Abnormal ECG When compared with ECG of 10-JAN-2023 09:57, (unconfirmed) Right bundle branch block has replaced Incomplete right bundle branch block Pacing is present Confirmed by Tesfaye Stewart ([id number]) on 01/12/2023 7:09:20 AM Referred By: REFERRED SELF Confirmed By:Simba Stewart
[2023-01-12 07:37] LABS: Calcium 8.3 mg/dl (8.6-10.3); Potassium 4.2 mmol/L (3.5-5.1)
[2023-01-12 07:42] LABS: BUN Creatinine Ratio 15.5 (10-20); Creatinine Clr Calc Pharmacy 50.9 ml/min; Est GFR (African American) 71.1 ml/min; Est GFR (Non-African American) 61.3 ml/min
[2023-01-12] MEDS: FINASTERIDE 5 MG TAB PO SCH (08:15)
[2023-01-12] MEDS: ATORVASTATIN 40 MG TAB PO SCH (08:15)
[2023-01-12] MEDS: CLOPIDOGREL BISULFATE 75 MG TAB PO SCH (08:15)
[2023-01-12] MEDS: METOPROLOL TARTRATE 25 MG TAB PO SCH ×2 (08:15→19:39)
[2023-01-12] MEDS: ASPIRIN 81 MG ECTAB PO SCH (08:15)
[2023-01-12] MEDS: TAMSULOSIN HCL 0.4 MG CAP PO SCH (08:15)
[2023-01-12] MEDS: DOCUSATE SODIUM 100 MG CAP PO SCH ×2 (08:16→19:39)
--- NOTE | 2023-01-12 09:25 | Cardiology Progress Note ---
Date of Service January 12, 2023 Assessment & Plan (1) Non-ST elevation (NSTEMI) myocardial infarction: (2) Ischemic cardiomyopathy: Admission and Anticipated Discharge Date Admission Date: January 09, 2023 Subjective STARTED IN ERROR Results & Data Vital Signs (Past 12 Hours) Vital Signs Temp Pulse Pulse Resp BP Pulse Ox O2 Del Method 01/12/23 08:59 62 01/12/23 07:31 37.2 C 85 20 120/62 92 Room Air 01/12/23 05:51 68 111/65 01/12/23 03:14 36.7 C 62 16 82/55 L 96 Room Air 01/11/23 23:02 36.9 C 60 16 91/53 L 94 Room Air 01/11/23 22:47 60
--- NOTE | 2023-01-12 10:02 | Hospitalist Progress Note ---
Date of Service January 12, 2023 Assessment & Plan (1) Chest pain: Plan: 82-year-old male with past medical significant for hyperlipidemia, lung nodule, complete AV block s/p pacemaker, benign neoplasm of pituitary gland, BPH, right foot drop, history of DVT and PE on Xarelto presents with chest pain. Chest pain Non-ST elevated [place] Pain more when lying flat Initial troponin is 866 and the serial troponin went even higher up to 2343.3 Patient is already on Xarelto. We will continue with aspirin Echo of the heart showed LV systolic function is moderately reduced with EF 30 to 35%, there is large sized apical, septal, anteroseptal and anterior wall motion abnormality with hypokinesis to dyskinesis of the segments and aortic valve sclerosis mild without stenosis Appreciate cardiology input and recommendation Status post cardiac cath and placement of drug-eluting stent in S GI/ vessel He has been doing much better following the procedure and denies any symptoms Remains asymptomatic even though the blood pressure was noted to very low this morning and bradycardia He received 500 mL of normal saline bolus and the blood pressure improved up to systolic 90 Remains asymptomatic His Xarelto has been restarted and beta-jeaneth dose has been reduced by the finished metal repairer Remains stable without any symptoms Noted to have low blood pressure of systolic 80s without any symptoms Received normal saline boluses of 500 mL x 2 last night Blood pressure is maintained at around 120/62 throughout this morning Advised to drink a bit more fluid to maintain blood pressure He will be discharged home this afternoon History of dyslipidemia We will follow lipid profile Total cholesterol 204 with HDL cholesterol at 55 History of complete AV block status post pacemaker History of BPH On Flomax and Proscar History of DVT and PE On Xarelto DVT prophylaxis on Xarelto Disposition monitor on telemetry Full code Discharge home this afternoon Admission and Anticipated Discharge Date Admission Date: January 09, 2023 Subjective 01/10/2023 The patient was seen and examined in telemetry unit He was admitted with non-ST [place] and underwent cardiac cath He has been feeling much better and denies any chest pain, shortness of breath, palpitation He wants to have food 01/11/2023 The patient was seen and examined in telemetry unit He was noted to have very low blood pressure of systolic 70s early this morning without any symptoms Received 500 mL of NS bolus and the blood pressure went up to 90 systolic The patient feels better and wants to go home 01/12/2023 The patient was seen and examined in telemetry unit He has had low blood pressure last night and required 2 boluses of 500 mL of normal saline Did not have any symptoms with the low blood pressure Been ambulating in the room without any difficulties or dizziness No cardiac symptoms Review of Systems Review of Systems: All systems reviewed and are unremarkable except as noted below Physical Exam Physical Exam: Lying in bed comfortably Constitutional: well developed, well nourished and average body habitus; not ill appearing Eyes: PERRL, conjunctivae normal, anicteric sclerae ENMT: external ear and nose normal, oropharynx normal Neck: trachea midline, no thyromegaly Respiratory: no respiratory distress Auscultation: lungs clear to auscultation bilaterally Cardiovascular: Rate/Rhythm: regular rate and regular rhythm; not tachycardic Heart Sounds: normal S1 and normal S2; no murmur Extremities: no edema Gastrointestinal (Abdomen): Inspection/Auscultation: normal bowel sounds; abdomen not distended Percussion/Palpation: abdomen soft; abdomen nontender Musculoskeletal: No acute arthritis involving any of the joint Neurologic: normal touch/pain/proprioception and moves all extremities; no focal motor deficits Psychiatric: A+Ox3, euthymic affect Lymphatic: no cervical or axillary lymphadenopathy Results & Data Results & Data Vital Signs (Past 12 Hours) Vital Signs Temp Pulse Pulse Resp BP Pulse Ox O2 Del Method 01/12/23 08:59 62 01/12/23 07:31 37.2 C 85 20 120/62 92 Room Air 01/12/23 05:51 68 111/65 01/12/23 03:14 36.7 C 62 16 82/55 L 96 Room Air 01/11/23 23:02 36.9 C 60 16 91/53 L 94 Room Air 01/11/23 22:47 60 Laboratory Results Short CBC 01/12/23 Range/Units 05:32 WBC 5.80 (4.8-10.8) K/ul Hgb 14.6 (14.0-18.0) g/dl Hct 42.0 (42.0-52.0) % Plt Count 141 (130-400) K/uL BMP 01/12/23 05:32 Sodium 137 Potassium 4.2 Chloride 106 Carbon Dioxide 25 BUN 17 Creatinine 1.10 Glucose 93 Calcium 8.3 L Medications Administered Current Inpatient Medications Acetaminophen (Acetaminophen 325 Mg Tab) 650 mg PO Q4H PRN PRN Reason: Pain or Fever Stop: 02/08/23 21:40 Aspirin (Aspirin 81 Mg Ectab) 81 mg PO [facility] Stop: 02/09/23 08:59 Last Admin: 01/12/23 08:15 Dose: 81 mg Atorvastatin Calcium (Atorvastatin 40 Mg Tab) 80 mg PO [facility] Stop: 02/09/23 09:44 Last Admin: 01/12/23 08:15 Dose: 80 mg Clopidogrel Bisulfate (Clopidogrel Bisulfate 75 Mg Tab) 75 mg PO [facility] Stop: 02/10/23 08:59 Last Admin: 01/12/23 08:15 Dose: 75 mg Docusate Sodium (Docusate Sodium 100 Mg Cap) 100 mg PO BID [facility] Stop: 02/09/23 12:14 Last Admin: 01/12/23 08:16 Dose: Not Given Finasteride (Finasteride 5 Mg Tab) 5 mg PO [facility] Stop: 02/09/23 08:59 Last Admin: 01/12/23 08:15 Dose: 5 mg Metoprolol Tartrate (Metoprolol Tartrate 25 Mg Tab) 12.5 mg PO BID [facility] Stop: 02/09/23 09:44 Last Admin: 01/12/23 08:15 Dose: 12.5 mg Morphine Sulfate (Morphine Sulfate 2 Mg/Ml Carp) 2 mg IV Q30M PRN PRN Reason: Chest Pain Stop: 01/23/23 21:40 Nitroglycerin (Nitroglycerin Sl 0.4 Mg/Tab Tab) 0.4 mg SL Q5M PRN PRN Reason: Chest Pain Stop: 02/08/23 21:40 Polyethylene Glycol (Polyethylene (Miralax) 17 Gm Pack) 17 gm PO DAILY PRN PRN Reason: Constipation Stop: 02/08/23 21:40 Rivaroxaban (Rivaroxaban 20 Mg Tab) 20 mg PO QDD [facility] Stop: 02/08/23 21:40 Last Admin: 01/11/23 16:57 Dose: 20 mg Tamsulosin HCl (Tamsulosin Hcl 0.4 Mg Cap) 0.4 mg PO [facility] Stop: 02/09/23 08:59 Last Admin: 01/12/23 08:15 Dose: 0.4 mg
--- NOTE | 2023-01-12 10:53 | Cardiology Progress Note ---
Date of Service January 12, 2023 Assessment & Plan (1) Non-ST elevation (NSTEMI) myocardial infarction: (2) Ischemic cardiomyopathy: Plan 82-year-old man presents with chest pain Dx: NSTEMI, * Echocardiographic with anterior, apical, and septal wall motion abnormality * Moderate LV systolic dysfunction noted (LVEF 30-35%) * Cardiac catheterization- proximal LAD stenosis status post successful drug- eluting stent implantation. * Hx of afib * Chronically anticoagulated with Xarelto Plans: * SBP 120/60 * Continue Aspirin 81 mg po per day * Continue Plavix 75 mg po per day * Xarelto for Afib. Transition to clopidogrel plus Xarelto at time of discharge. * Continue Lipitor 80 mg po per day; may need Zetia 10 mg po per day * Goal LDL 55 with CAD * Start Aldactone 25 mg po per day * Plans to start Entresto 24/26 mg po BID as an outpt * Consider Jardiance as an outpt * Stop Lopressor * Start Toprol XL 12.5 mg po per day * Cardiac Rehab * Smoking Cessation * Mobilize * F/U with [facility] at [facility] Admission and Anticipated Discharge Date Admission Date: January 09, 2023 Subjective 01/10/2023 The patient was seen and examined in telemetry unit He was admitted with non-ST [place] and underwent cardiac cath He has been feeling much better and denies any chest pain, shortness of breath, palpitation He wants to have food 01/11/2023 The patient was seen and examined in telemetry unit He was noted to have very low blood pressure of systolic 70s early this morning without any symptoms Received 500 mL of NS bolus and the blood pressure went up to 90 systolic The patient feels better and wants to go home 01/12/2023 The patient was seen and examined in telemetry unit He has had low blood pressure last night and required 2 boluses of 500 mL of normal saline Did not have any symptoms with the low blood pressure Been ambulating in the room without any difficulties or dizziness No cardiac symptoms Review of Systems Review of Systems: All systems reviewed & are unremarkable except as noted in HPI & below Results & Data Vital Signs (Past 12 Hours) Vital Signs Temp Pulse Pulse Resp BP Pulse Ox O2 Del Method 01/12/23 08:59 62 01/12/23 07:31 37.2 C 85 20 120/62 92 Room Air 01/12/23 05:51 68 111/65 01/12/23 03:14 36.7 C 62 16 82/55 L 96 Room Air 01/11/23 23:02 36.9 C 60 16 91/53 L 94 Room Air Laboratory Results CBC 01/12/23 Range/Units 05:32 WBC 5.80 (4.8-10.8) K/ul RBC 4.46 L (4.70-6.10) M/uL Hgb 14.6 (14.0-18.0) g/dl Hct 42.0 (42.0-52.0) % Plt Count 141 (130-400) K/uL Neut # (Auto) 4.58 (1.40-6.50) K/uL Lymph # (Auto) 0.81 L (1.2-3.4) K/uL [place] # (Auto) 0.28 (0.11-0.59) K/uL Eos # (Auto) 0.06 (0-0.50) K/uL Baso # (Auto) 0.04 (0-0.2) K/uL Comprehensive Metabolic Panel 01/12/23 Range/Units 05:32 Sodium 137 (136-145) mmol/L Potassium 4.2 (3.5-5.1) mmol/L Chloride 106 (98-107) mmol/L Carbon Dioxide 25 (21-32) mmol/L BUN 17 (6-23) mg/dl Creatinine 1.10 (0.6-1.4) mg/dl Glucose 93 (70-99(Fasting)) mg/dl Calcium 8.3 L (8.6-10.3) mg/dl Intake and Output 01/11/23 01/12/23 01/12/23 22:59 06:59 14:59 Intake Total 500 / 1340 Output Total 200 / 702 400 / 702 600 / 600 Balance -200 / 638 100 / 638 -600 / -600 Intake: IV 500 / 1000 Sodium Chloride 0.9% 500 ml @ 500 / 500 500 mls/hr IV .Q1H [facility] Rx#: [id number] Output: Urine 200 / 700 400 / 700 600 / 600 Other: Weight 72 kg Weight Measurement Method Built in [facility] Diagnostic Findings ECHOcardiogram: 01/10/23 LVEF 30-35% No major valvular abnormalities
[2023-01-12 13:12] LABS: Appearance Urine Clear (Clear); Bacteria Urine Automated 1+ (Negative); Bilirubin Urine Negative (Negative); Blood Urine 2+ (Negative); Color Urine Yellow; Epithelial Cell Urine Auto 20-30 /lpf (0-5); Glucose Urine UA Negative (Negative); Ketones Urine Negative (Negative); Leukocyte Esterase Urine 1+ (Negative); Nitrite Urine Positive (Negative); Protein Urine Negative (Negative); RBC Urine Automated 0-4 /hpf (0-4); Specific Gravity Urine 1.012 (1.000-1.030); Urobilinogen Urine Negative (Negative)
--- NOTE | 2023-01-12 14:38 | XRay Report ---
TWO VIEW CHEST CLINICAL HISTORY: Atypical chest pain. FINDINGS: PA and lateral chest radiographs are compared to study dated 01/09/2023. Correlation is made with chest CT dated 08/12/2018. A 2-lead cardiac pacemaker is unchanged in position and partially obscu res the left upper chest. The cardiomediastinal silhouette is unremarkable noting atherosclerotic annamaria cification of the thoracic aorta. The pulmonary vasculature is noncongested. There is bibasilar scarr ing/atelectasis. No airspace consolidation or pleural effusion is identified. There is no pneumothora x. The skeletal structures are osteopenic. The bony thorax appears intact. Cholecystectomy clips are noted in the right upper quadrant. IMPRESSION: No active disease in the chest. ACT 112: Negative or not required by law. Electronically signed by: Juan aFrr M.D. 01/12/2023 2:37 PM
[2023-01-12] MEDS: RIVAROXABAN 20 MG TAB PO SCH (16:31)
[2023-01-12] MEDS ORDERED: SODIUM CHLORIDE 0.9% 250 ML IV ONE (20:15)
[2023-01-13 04:16] LABS: Hematocrit (blood only) 35.6 % (42.0-52.0); Hemoglobin 12.4 g/dl (14.0-18.0)
[2023-01-13] MEDS: ASPIRIN 81 MG ECTAB PO SCH (08:34)
[2023-01-13] MEDS: ATORVASTATIN 40 MG TAB PO SCH (08:34)
[2023-01-13] MEDS: CLOPIDOGREL BISULFATE 75 MG TAB PO SCH (08:37)
[2023-01-13] MEDS: DOCUSATE SODIUM 100 MG CAP PO SCH ×2 (08:38→19:27)
[2023-01-13] MEDS: TAMSULOSIN HCL 0.4 MG CAP PO SCH (08:39)
[2023-01-13] MEDS: FINASTERIDE 5 MG TAB PO SCH (08:39)
--- NOTE | 2023-01-13 08:47 | Cardiology Progress Note ---
Date of Service January 13, 2023 Assessment & Plan (1) Non-ST elevation (NSTEMI) myocardial infarction: (2) Ischemic cardiomyopathy: Plan 82-year-old man presents with chest pain Dx: NSTEMI, * Echocardiographic with anterior, apical, and septal wall motion abnormality * Moderate LV systolic dysfunction noted (LVEF 30-35%) * Cardiac catheterization- proximal LAD stenosis status post successful drug- eluting stent implantation. * Hx of afib * Chronically anticoagulated with Xarelto Plans: * SBP slightly lower 90/55 * Continue Aspirin 81 mg po per day * Continue Plavix 75 mg po per day * Xarelto for Afib. Transition to clopidogrel plus Xarelto at time of discharge. * Pt reported hematuria * HCT slightly lower * May need Urology W/U as an outpt * Plans to streamline Anticoagulation prior to D/C * Continue Lipitor 80 mg po per day; may need Zetia 10 mg po per day * Goal LDL 55 with CAD * Plans to start Aldactone 25 mg po per day as an outpt * Plans to start Entresto 24/26 mg po BID as an outpt * Consider Jardiance as an outpt * Lopressor (OFF) * Start Toprol XL 12.5 mg po per day * Cardiac Rehab * Smoking Cessation * Mobilize * F/U with [facility] [employer] Admission and Anticipated Discharge Date Admission Date: January 09, 2023 Subjective 01/10/2023 The patient was seen and examined in telemetry unit He was admitted with non-ST [place] and underwent cardiac cath He has been feeling much better and denies any chest pain, shortness of breath, palpitation He wants to have food 01/11/2023 The patient was seen and examined in telemetry unit He was noted to have very low blood pressure of systolic 70s early this morning without any symptoms Received 500 mL of NS bolus and the blood pressure went up to 90 systolic The patient feels better and wants to go home 01/12/2023 The patient was seen and examined in telemetry unit He has had low blood pressure last night and required 2 boluses of 500 mL of normal saline Did not have any symptoms with the low blood pressure Been ambulating in the room without any difficulties or dizziness No cardiac symptoms 01/13/2023 Events Overnight: Patient reported Hematuria Review of Systems Review of Systems: All systems reviewed & are unremarkable except as noted in HPI & below Results & Data Vital Signs (Past 12 Hours) Vital Signs Temp Pulse Pulse Resp BP Pulse Ox O2 Del Method 01/13/23 07:23 36.6 C 96 H 16 90/55 L 96 Room Air 01/13/23 03:21 37 C 62 18 93/58 L 92 Room Air 01/12/23 22:51 36.7 C 61 16 93/53 L 92 Room Air 01/12/23 22:46 60 01/12/23 21:34 60 112/66 Laboratory Results CBC 01/13/23 Range/Units 03:53 Hgb 12.4 L (14.0-18.0) g/dl Hct 35.6 L (42.0-52.0) % Intake and Output 01/12/23 01/13/23 01/13/23 22:59 06:59 14:59 Intake Total 250 / 1450 360 / 1450 Output Total 800 / 2075 325 / 2075 Balance -550 / -625 35 / -625 Intake: IV 250 / 250 Sodium Chloride 0.9% 250 ml @ 250 / 250 250 mls/hr IV .Q1H ONE Rx#: [id number] Oral 360 / 1200 Output: Urine 800 / 2075 325 / 2075 Other: Weight 71.5 kg Weight Measurement Method Built in [facility]
[2023-01-13] MEDS: METOPROLOL SUCC 25MG EXT REL TAB PO SCH (09:11)
[2023-01-13 10:06] LABS: Basophils # (auto) 0.01 K/uL (0-0.2); Basophils % (auto) 0.1 %; Eosinophils # (auto) 0.02 K/uL (0-0.50); Eosinophils % (auto) 0.3 %; Hematocrit (blood only) 37.6 % (42.0-52.0); Immature Granulocytes # (auto) 0.02 K/uL (0.01-0.20); Immature Granulocytes % (auto) 0.3 %; Lymphocytes # (auto) 0.88 K/uL (1.2-3.4); Lymphocytes % (auto) 11.7 %; Mean Corpuscular Hemoglobin 32.7 pg (25.0-34.0); Mean Corpuscular Hgb Conc 34.6 g/dL (32.0-36.0); Mean Corpuscular Volume 94.7 fL (80.0-100.0); Mean Platelet Volume 10.8 fL (9.4-12.4); Monocytes # (auto) 0.35 K/uL (0.11-0.59); Monocytes % (auto) 4.7 %; Neutrophils # (auto) 6.24 K/uL (1.40-6.50); Neutrophils % (auto) 82.9 %; Platelet Count 135 K/uL (130-400); RDW Coefficient of Variation 13.2 % (11.5-14.5); RDW Standard Deviation 45.8 fL (36.4-46.3); Red Blood Count 3.97 M/uL (4.70-6.10); White Blood Count 7.52 K/ul (4.8-10.8)
--- NOTE | 2023-01-13 12:39 | Hospitalist Progress Note ---
Date of Service January 13, 2023 Assessment & Plan (1) Chest pain: Plan: 82-year-old male with past medical significant for hyperlipidemia, lung nodule, complete AV block s/p pacemaker, benign neoplasm of pituitary gland, BPH, right foot drop, history of DVT and PE on Xarelto presents with chest pain. Chest pain Non-ST elevated ND Pain more when lying flat Initial troponin is 866 and the serial troponin went even higher up to 2343.3 Patient is already on Xarelto. We will continue with aspirin Echo of the heart showed LV systolic function is moderately reduced with EF 30 to 35%, there is large sized apical, septal, anteroseptal and anterior wall motion abnormality with hypokinesis to dyskinesis of the segments and aortic valve sclerosis mild without stenosis Appreciate cardiology input and recommendation Status post cardiac cath and placement of drug-eluting stent in S GI/ vessel He has been doing much better following the procedure and denies any symptoms Remains asymptomatic even though the blood pressure was noted to very low this morning and bradycardia He received 500 mL of normal saline bolus and the blood pressure improved up to systolic 90 Remains asymptomatic His Xarelto has been restarted and beta-jeaneth dose has been reduced by the body former Remains stable without any symptoms UA positive for possible infection with hematuria Culture growing gram-negative bacilli Likely the cause for low blood pressure and weakness Please start intravenous ceftriaxone Noted to have low blood pressure of systolic 80s without any symptoms Received normal saline boluses of 500 mL x 2 last night Blood pressure is maintained at around 120/62 throughout this morning Advised to drink a bit more fluid to maintain blood pressure He will be discharged home this afternoon We will get PT and OT evaluation If remains asymptomatic will be discharged home tomorrow History of dyslipidemia We will follow lipid profile Total cholesterol 204 with HDL cholesterol at 55 History of complete AV block status post pacemaker History of BPH On Flomax and Proscar History of DVT and PE On Xarelto DVT prophylaxis on Xarelto Disposition monitor on telemetry Full code Likely discharge tomorrow Admission and Anticipated Discharge Date Admission Date: January 09, 2023 Subjective 01/10/2023 The patient was seen and examined in telemetry unit He was admitted with non-ST ND and underwent cardiac cath He has been feeling much better and denies any chest pain, shortness of breath, palpitation He wants to have food 01/11/2023 The patient was seen and examined in telemetry unit He was noted to have very low blood pressure of systolic 70s early this morning without any symptoms Received 500 mL of NS bolus and the blood pressure went up to 90 systolic The patient feels better and wants to go home 01/12/2023 The patient was seen and examined in telemetry unit He has had low blood pressure last night and required 2 boluses of 500 mL of normal saline Did not have any symptoms with the low blood pressure Been ambulating in the room without any difficulties or dizziness No cardiac symptoms 01/13/2023 The patient was seen and examined in telemetry unit He has had some hematuria last night which seems to be improving this morning Blood pressure remains low at systolic 90s without any symptoms We will continue with low-dose beta-jeaneth and get PT and OT evaluation Possible discharge tomorrow if remains asymptomatic Review of Systems Review of Systems: All systems reviewed and are unremarkable except as noted below Physical Exam Physical Exam: Lying in bed comfortably Constitutional: well developed, well nourished and average body habitus; not ill appearing Eyes: PERRL, conjunctivae normal, anicteric sclerae ENMT: external ear and nose normal, oropharynx normal Neck: trachea midline, no thyromegaly Respiratory: no respiratory distress Auscultation: lungs clear to auscultation bilaterally Cardiovascular: Rate/Rhythm: regular rate and regular rhythm; not tachycardic Heart Sounds: normal S1 and normal S2; no murmur Extremities: no edema Gastrointestinal (Abdomen): Inspection/Auscultation: normal bowel sounds; abdomen not distended Percussion/Palpation: abdomen soft; abdomen nontender Neurologic: normal touch/pain/proprioception and moves all extremities; no focal motor deficits Psychiatric: A+Ox3, euthymic affect Lymphatic: no cervical or axillary lymphadenopathy Results & Data Results & Data Vital Signs (Past 12 Hours) Vital Signs Temp Pulse Resp BP Pulse Ox O2 Del Method 01/13/23 11:29 36.6 C 60 16 93/55 L 94 Room Air 01/13/23 07:23 36.6 C 96 H 16 90/55 L 96 Room Air 01/13/23 03:21 37 C 62 18 93/58 L 92 Room Air Laboratory Results Short CBC 01/13/23 01/13/23 Range/Units 03:53 09:30 WBC 7.52 (4.8-10.8) K/ul Hgb 12.4 L 13.0 L (14.0-18.0) g/dl Hct 35.6 L 37.6 L (42.0-52.0) % Plt Count 135 (130-400) K/uL Urine 01/12/23 Range/Units 12:45 Urine Color Yellow Urine Appearance Clear (Clear) Urine pH 6.0 (4.5-7.5) Ur Specific [place] 1.012 (1.000-1.030) Urine Protein Negative (Negative) Urine Glucose (UA) Negative (Negative)
[2023-01-13] MEDS ORDERED: cefTRIAXone SODIUM 1,000 MG in DEXTROSE 5% 50 ML IV SCH (13:00)
[2023-01-13] MEDS: RIVAROXABAN 20 MG TAB PO SCH (17:11)
[2023-01-14 06:48] LABS: Basophils # (auto) 0.04 K/uL (0-0.2); Basophils % (auto) 0.6 %; Eosinophils # (auto) 0.16 K/uL (0-0.50); Eosinophils % (auto) 2.4 %; Hematocrit (blood only) 36.3 % (42.0-52.0); Hemoglobin 12.5 g/dl (14.0-18.0); Immature Granulocytes # (auto) 0.02 K/uL (0.01-0.20); Immature Granulocytes % (auto) 0.3 %; Lymphocytes # (auto) 1.23 K/uL (1.2-3.4); Lymphocytes % (auto) 18.6 %; Mean Corpuscular Hemoglobin 31.9 pg (25.0-34.0); Mean Corpuscular Hgb Conc 34.4 g/dL (32.0-36.0); Mean Corpuscular Volume 92.6 fL (80.0-100.0); Mean Platelet Volume 10.7 fL (9.4-12.4); Monocytes # (auto) 0.83 K/uL (0.11-0.59); Monocytes % (auto) 12.5 %; Neutrophils # (auto) 4.34 K/uL (1.40-6.50); Neutrophils % (auto) 65.6 %; Platelet Count 136 K/uL (130-400); RDW Coefficient of Variation 13.1 % (11.5-14.5); RDW Standard Deviation 44.7 fL (36.4-46.3); Red Blood Count 3.92 M/uL (4.70-6.10); White Blood Count 6.62 K/ul (4.8-10.8)
[2023-01-14 07:06] LABS: BUN Creatinine Ratio 21.2 (10-20); Calcium 8.1 mg/dl (8.6-10.3); Creatinine Clr Calc Pharmacy 67.1 ml/min; Est GFR (African American) 92.7 ml/min; Potassium 3.8 mmol/L (3.5-5.1)
[2023-01-14] MEDS ORDERED: levoFLOXacin 750 MG TAB PO SCH (07:30)
[2023-01-14] MEDS: DOCUSATE SODIUM 100 MG CAP PO SCH (07:39)
[2023-01-14] MEDS: ASPIRIN 81 MG ECTAB PO SCH (07:39)
[2023-01-14] MEDS: FINASTERIDE 5 MG TAB PO SCH (07:39)
[2023-01-14] MEDS: ATORVASTATIN 40 MG TAB PO SCH (07:39)
[2023-01-14] MEDS: CLOPIDOGREL BISULFATE 75 MG TAB PO SCH (07:40)
[2023-01-14] MEDS: TAMSULOSIN HCL 0.4 MG CAP PO SCH (07:40)
[2023-01-14] MEDS: METOPROLOL SUCC 25MG EXT REL TAB PO SCH (07:40)
--- NOTE | 2023-01-14 10:49 | Hospitalist Progress Note ---
Date of Service January 14, 2023 Assessment & Plan (1) Chest pain: Plan: 82-year-old male with past medical significant for hyperlipidemia, lung nodule, complete AV block s/p pacemaker, benign neoplasm of pituitary gland, BPH, right foot drop, history of DVT and PE on Xarelto presents with chest pain. Chest pain Non-ST elevated [place] Pain more when lying flat Initial troponin is 866 and the serial troponin went even higher up to 2343.3 Patient is already on Xarelto. We will continue with aspirin Echo of the heart showed LV systolic function is moderately reduced with EF 30 to 35%, there is large sized apical, septal, anteroseptal and anterior wall motion abnormality with hypokinesis to dyskinesis of the segments and aortic valve sclerosis mild without stenosis Appreciate cardiology input and recommendation Status post cardiac cath and placement of drug-eluting stent in S GI/ vessel He has been doing much better following the procedure and denies any symptoms Remains asymptomatic even though the blood pressure was noted to very low this morning and bradycardia He received 500 mL of normal saline bolus and the blood pressure improved up to systolic 90 Remains asymptomatic His Xarelto has been restarted and beta-jeaneth dose has been reduced by the separator operator shellfish meats No more chest pain and/or cardiac symptoms UA positive for possible infection with hematuria Culture growing gram-negative bacilli Likely the cause for low blood pressure and weakness Please start intravenous ceftriaxone Urine culture came back positive for pansensitive Pseudomonas Discussed with the pharmacist and will be given levofloxacin 750 mg for a total of 5 days Noted to have low blood pressure of systolic 80s without any symptoms Received normal saline boluses of 500 mL x 2 last night Blood pressure is maintained at around 120/62 throughout this morning Advised to drink a bit more fluid to maintain blood pressure He will be discharged home this afternoon We will get PT and OT evaluation If remains asymptomatic will be discharged home tomorrow Blood pressure seems to be stable at 111/65 today He has been ambulating in the hallway without any symptoms History of dyslipidemia We will follow lipid profile Total cholesterol 204 with HDL cholesterol at 55 History of complete AV block status post pacemaker History of BPH On Flomax and Proscar History of DVT and PE On Xarelto DVT prophylaxis on Xarelto Disposition monitor on telemetry Full code Will be discharged this afternoon Admission and Anticipated Discharge Date Admission Date: January 09, 2023 Subjective 01/10/2023 The patient was seen and examined in telemetry unit He was admitted with non-ST MO and underwent cardiac cath He has been feeling much better and denies any chest pain, shortness of breath, palpitation He wants to have food 01/11/2023 The patient was seen and examined in telemetry unit He was noted to have very low blood pressure of systolic 70s early this morning without any symptoms Received 500 mL of NS bolus and the blood pressure went up to 90 systolic The patient feels better and wants to go home 01/12/2023 The patient was seen and examined in telemetry unit He has had low blood pressure last night and required 2 boluses of 500 mL of normal saline Did not have any symptoms with the low blood pressure Been ambulating in the room without any difficulties or dizziness No cardiac symptoms 01/13/2023 The patient was seen and examined in telemetry unit He has had some hematuria last night which seems to be improving this morning Blood pressure remains low at systolic 90s without any symptoms We will continue with low-dose beta-jeaneth and get PT and OT evaluation Possible discharge tomorrow if remains asymptomatic 01/14/2023 The patient was seen and examined in telemetry unit He has been feeling much better and the blood pressure is a little better today at 111/65 Noted to have Pseudomonas UTI which should be treated with oral levofloxacin Denies any cardiac symptoms Has been ambulating without any difficulties To be discharged home this afternoon Review of Systems Review of Systems: All systems reviewed and are unremarkable except as noted below Physical Exam Physical Exam: Lying in bed comfortably Constitutional: well developed, well nourished and average body habitus; not ill appearing Eyes: PERRL, conjunctivae normal, anicteric sclerae ENMT: external ear and nose normal, oropharynx normal Neck: trachea midline, no thyromegaly Respiratory: no respiratory distress Auscultation: lungs clear to auscultation bilaterally Cardiovascular: Rate/Rhythm: regular rate and regular rhythm; not tachycardic Heart Sounds: normal S1 and normal S2; no murmur Extremities: no edema Gastrointestinal (Abdomen): Inspection/Auscultation: normal bowel sounds; abdomen not distended Percussion/Palpation: abdomen soft; abdomen nontender Musculoskeletal: No acute arthritis involving any of the joint Neurologic: normal touch/pain/proprioception and moves all extremities; no focal motor deficits Psychiatric: A+Ox3, euthymic affect Lymphatic: no cervical or axillary lymphadenopathy Results & Data Results & Data Vital Signs (Past 12 Hours) Vital Signs Temp Pulse Resp BP Pulse Ox O2 Del Method 01/14/23 07:18 36.4 C L 70 16 111/65 96 Room Air 01/14/23 02:57 36.4 C L 60 16 95/58 L 94 Room Air 01/13/23 23:16 36.6 C 60 18 94/57 L 96 Room Air Laboratory Results Short CBC 01/14/23 Range/Units 05:41 WBC 6.62 (4.8-10.8) K/ul Hgb 12.5 L (14.0-18.0) g/dl Hct 36.3 L (42.0-52.0) % Plt Count 136 (130-400) K/uL BMP 01/14/23 05:41 Sodium 137 Potassium 3.8 Chloride 106 Carbon Dioxide 26 BUN 18 Creatinine 0.85 Glucose 84 Calcium 8.1 L Medications Administered Current Inpatient Medications Acetaminophen (Acetaminophen 325 Mg Tab) 650 mg PO Q4H PRN PRN Reason: Pain or Fever Stop: 02/08/23 21:40 Aspirin (Aspirin 81 Mg Ectab) 81 mg PO [facility] Stop: 02/09/23 08:59 Last Admin: 01/14/23 07:39 Dose: 81 mg Atorvastatin Calcium (Atorvastatin 40 Mg Tab) 80 mg PO [facility] Stop: 02/09/23 09:44 Last Admin: 01/14/23 07:39 Dose: 80 mg Clopidogrel Bisulfate (Clopidogrel Bisulfate 75 Mg Tab) 75 mg PO [facility] Stop: 02/10/23 08:59 Last Admin: 01/14/23 07:40 Dose: 75 mg Docusate Sodium (Docusate Sodium 100 Mg Cap) 100 mg PO BID [facility] Stop: 02/09/23 12:14 Last Admin: 01/14/23 07:39 Dose: 100 mg Finasteride (Finasteride 5 Mg Tab) 5 mg PO [facility] Stop: 02/09/23 08:59 Last Admin: 01/14/23 07:39 Dose: 5 mg Levofloxacin (Levofloxacin 750 Mg Tab) 750 mg PO DAILY [facility] Stop: 01/18/23 09:01 Last Admin: 01/14/23 08:14 Dose: 750 mg Metoprolol Succinate (Metoprolol Succ 25mg Ext Rel Tab) 12.5 mg PO [facility] Stop: 02/12/23 08:59 Last Admin: 01/14/23 07:40 Dose: 12.5 mg Morphine Sulfate (Morphine Sulfate 2 Mg/Ml Carp) 2 mg IV Q30M PRN PRN Reason: Chest Pain Stop: 01/23/23 21:40 Nitroglycerin (Nitroglycerin Sl 0.4 Mg/Tab Tab) 0.4 mg SL Q5M PRN PRN Reason: Chest Pain Stop: 02/08/23 21:40 Polyethylene Glycol (Polyethylene (Miralax) 17 Gm Pack) 17 gm PO DAILY PRN PRN Reason: Constipation Stop: 02/08/23 21:40 Rivaroxaban (Rivaroxaban 20 Mg Tab) 20 mg PO QDD [facility] Stop: 02/08/23 21:40 Last Admin: 01/13/23 17:11 Dose: 20 mg Tamsulosin HCl (Tamsulosin Hcl 0.4 Mg Cap) 0.4 mg PO QAM [facility] Stop: 02/09/23 08:59 Last Admin: 01/14/23 07:40 Dose: 0.4 mg
--- NOTE | 2023-01-15 17:09 | Discharge Summary ---
Date of Service January 14, 2023 Admission HPI Per Admitting Provider 82-year-old male with past medical significant for hyperlipidemia, lung nodule, complete AV block s/p pacemaker, benign neoplasm of pituitary gland, BPH, right foot drop, history of DVT and PE on Xarelto presents with chest pain. Patient states since his last night he had severe chest pain in the upper part of the chest. Radiated into the back. It was constant pain. Morning he had sweating. He has some dizziness when standing. No shortness of breath. No nausea. In the ER received aspirin morphine and currently pain is better. He says when he is laying down the pain is more. No cough. Afebrile. Has some runny nose. No blurred visions. No earache. No difficulty swallowing. Appetite is okay. No abdominal pain. Normal bowel and bladder movements. Ambulates with a walker. Currently resting comfortably and hemodynamically stable. Family in the room. Admission Exam Per Admitting Provider Physical Exam: General- Not in distress Head- atraumatic Eyes- PERRL ENT- oropharynx clear Neck- supple, no JVD Lungs- clear to auscultation and percussion no added sounds Heart- regular rate and rhythm; no murmur, no gallop Abdomen- normal bowel sounds, soft, nontender, no distension. Extremities- no pretibial edema, no erythema seen Neuro- alert, oriented x 3; PERRL,no facial palsy; no dysarthria;moves extremities Skin- warm & dry Principal Diagnosis Known [facility], status post cardiac cath with proximal LAD drug-eluting stent placement, atrial fibrillation status post pacemaker, Pseudomonas UTI Discharge Exam Lying in bed comfortably Constitutional well developed, well nourished and average body habitus; not ill appearing Eyes PERRL, conjunctivae normal, anicteric sclerae ENMT external ear and nose normal, oropharynx normal Neck trachea midline, no thyromegaly Respiratory no respiratory distress Auscultation: lungs clear to auscultation bilaterally Cardiovascular Rate/Rhythm: regular rate and regular rhythm; not tachycardic Heart Sounds: normal S1 and normal S2; no murmur Extremities: no edema Gastrointestinal (Abdomen) Inspection/Auscultation: normal bowel sounds; abdomen not distended Percussion/Palpation: abdomen soft; abdomen nontender Neurologic normal touch/pain/proprioception and moves all extremities; no focal motor deficits Psychiatric A+Ox3, euthymic affect Lymphatic no cervical or axillary lymphadenopathy Discharge Data Allergies Allergy/AdvReac Type Severity Reaction Status Date / Time No Known Allergies Allergy Verified 02/22/19 07:48 Consultations 01/09/23 19:47 ED Decision to Admit Stat 01/10/23 08:00 Consult Cardiology Routine Procedures Performed Operation Date: 01/10/23 12:30 Actual Procedures p Cath, Left with Cors and Vent - Mil Joshi MD s Drug Eluting Stent SGl Vessel - Mil Joshi MD s IVUS Coronary Single Vessel - Mil Joshi MD s Cineradiography w/Routine Exam - Mil Joshi MD Ordered Studies 01/10/23 13:24 CL Cath Imgs for PACS use only Routine 01/10/23 14:03 CL IVUS Coronary Single Vessel Routine Hospital Course (1) Chest pain: 82-year-old male with past medical significant for hyperlipidemia, lung nodule, complete AV block s/p pacemaker, benign neoplasm of pituitary gland, BPH, right foot drop, history of DVT and PE on Xarelto presents with chest pain. Chest pain Non-ST elevated [place] Pain more when lying flat Initial troponin is 866 and the serial troponin went even higher up to 2343.3 Patient is already on Xarelto. We will continue with aspirin Echo of the heart showed LV systolic function is moderately reduced with EF 30 to 35%, there is large sized apical, septal, anteroseptal and anterior wall motion abnormality with hypokinesis to dyskinesis of the segments and aortic valve sclerosis mild without stenosis Appreciate cardiology input and recommendation Status post cardiac cath and placement of drug-eluting stent in S GI/ vessel He has been doing much better following the procedure and denies any symptoms Remains asymptomatic even though the blood pressure was noted to very low this morning and bradycardia He received 500 mL of normal saline bolus and the blood pressure improved up to systolic 90 Remains asymptomatic His Xarelto has been restarted and beta-jeaneth dose has been reduced by the mechanical intern No more chest pain and/or cardiac symptoms UA positive for possible infection with hematuria Culture growing gram-negative bacilli Likely the cause for low blood pressure and weakness Please start intravenous ceftriaxone Urine culture came back positive for pansensitive Pseudomonas Discussed with the pharmacist and will be given levofloxacin 750 mg for a total of 5 days Noted to have low blood pressure of systolic 80s without any symptoms Received normal saline boluses of 500 mL x 2 last night Blood pressure is maintained at around 120/62 throughout this morning Advised to drink a bit more fluid to maintain blood pressure He will be discharged home this afternoon We will get PT and OT evaluation If remains asymptomatic will be discharged home tomorrow Blood pressure seems to be stable at 111/65 today He has been ambulating in the hallway without any symptoms History of dyslipidemia We will follow lipid profile Total cholesterol 204 with HDL cholesterol at 55 History of complete AV block status post pacemaker History of BPH On Flomax and Proscar History of DVT and PE On Xarelto DVT prophylaxis on Xarelto Disposition monitor on telemetry Full code Will be discharged this afternoon Total Time Total Time Spent Total Time Spent (In Minutes): 35 minutes Discharge Plan Discharge Items Patient Disposition: Home - Self-Care Reason For Visit: CHEST PAIN Discharge Diagnosis: Known [facility], status post cardiac cath with proximal LAD drug-eluting stent placement, atrial fibrillation status post pacemaker, Pseudomonas UTI Condition on Discharge: Fair Activity: Resume your previous activity Non-emergency contact: Primary Care Provider Call non-emergency contact if: you have any medication questions and your symptoms worsen Follow-up/Referrals: Nano Sanchez MD [Primary Care Provider] - (Date & Time 01/15/2023 2:20 PM Provider Nano Sanchez MD Department Family Medicine [facility] [place] ) Diet: Heart Healthy and Low Sodium (2gm) Fluids: 1800ml (7 cups) Addtl Attending Provider Instructions: Please take precautions to avoid falls Take your medications as advised Please finish the course of antibiotic Keep appointments with your healthcare providers Pending Studies at Discharge: No Stand-Alone Forms: My [facility] [place], Smoking Cessation Medications and DC Order Prescriptions: New levofloxacin 750 mg Tablet 750 mg PO DAILY Qty: 4 0RF clopidogrel 75 mg Tablet 75 mg PO QAM Qty: 30 0RF atorvastatin 40 mg Tablet 80 mg PO QAM 30 Days Qty: 60 0RF metoprolol succinate 25 mg Tablet Extended Release 24 Hr 12.5 mg PO QAM Qty: 15 0RF nitroglycerin [Nitrostat] 0.4 mg Tablet, Sublingual 0.4 mg sublingual Q5M PRN (Reason: chest pain) Qty: 25 0RF Rx Instructions: As directed Continued tamsulosin 0.4 mg capsule 0.4 mg PO QAM finasteride 5 mg tablet 5 mg PO QAM Xarelto 20 mg tablet 20 mg PO QPM Discharge Orders: Discharge Order (Routine); Ordered 01/14/23 Ordered By: Kenia Jeter Discharge Order- CHF (Routine); Ordered 01/14/23 Ordered By: Kenia Jeter Admission Data Admit Date/Time: 01/09/23 21:25 Attending Provider: Kenia Jeter Admit Provider: Dillan Manley Primary Care Provider: Nano Sanchez Other Providers: Dillan Manley Other Interventions: Discharge Summary Assessment (RN) Last Done: 01/14/23 13:38
--- NOTE | 2023-01-16 13:19 | Coding Query ---
To promote full compliance with coding requirements relating to patient care, provider participation is requested in all cases of warp knit operator uncertainty. Please assist us with the question(s) below: Coding Question(s): Documented in the Diagnosis in discharge summary The diagnosis below was documented in the 01/10 Cardiac Catheterization, then subsequently fell off all further documentation. Please indicate if it is still a possible diagnosis or ruled out. 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
== END 2023-01-14 14:59 | disposition home or self-care (01) | DRG 247 ==
LOC: ED 18:13 → EDINP 21:25 → 2S 01-10 15:26